=== PATIENT | female | born 1945 | race Caucasian/White ===

== ENCOUNTER 2020-05-04 09:07 | Outpatient (CLI) | payer MEDICARE, OTHER, SELFPAY ==
[2020-05-04 10:10] LABS: Anion Gap 10.7 mmol/L (7-16); Blood Urea Nitrogen 13 mg/dL (7-17); Calcium 9.3 mg/dL (8.4-10.2); Carbon Dioxide 29 mmol/L (22-30); Chloride 104 mmol/L (98-107); Estimated Glomerular Filt Rate > 60; Glucose 104 mg/dL (65-105); Potassium 3.7 mmol/L (3.4-5.0); Sodium 140 mmol/L (137-145)
== END 2020-05-04 09:08 | disposition home or self-care (01) ==
LOC: ANHSURGERY 09:11
PROVIDERS: Anesthesiology; PCP Internal Medicine; Visit Provider Urology
DX: Z01.818 Encounter for other preprocedural examination (principal); N36.42 Intrinsic sphincter deficiency (ISD); E11.9 Type 2 diabetes mellitus without complications
CPT/HCPCS: 36415; 80048; 87086; 87088

== ENCOUNTER 2020-06-14 14:02 | Outpatient (CLI) | payer MEDICARE, OTHER, SELFPAY ==
--- NOTE | 2020-06-14 14:04 | ECG_ITS ---
Measurements Intervals [place] Rate: 79 P: 39 LA: 153 QRS: 25 QRSD: 77 T: 31 QT: 357 QTc: 411 Interpretive Statements SINUS RHYTHM BASELINE ARTIFACT- I, II, III, AVR, AVL, AVF NORMAL ECG Electronically Signed On 06-14-2020 14:19:38 CDT by Marciano Modi D.O.
== END 2020-06-14 14:03 | disposition home or self-care (01) ==
LOC: ANHSURGERY 14:04
PROVIDERS: PCP Internal Medicine; Visit Provider Urology
DX: E78.00 Pure hypercholesterolemia, unspecified (principal); R32 Unspecified urinary incontinence
CPT/HCPCS: 87086; 93005

== ENCOUNTER 2020-06-22 02:02 | Outpatient (CLI) | payer MEDICARE, OTHER, SELFPAY ==
[2020-06-22 18:39] LABS: SARS-CoV-2 RNA PCR Negative
== END 2020-06-22 02:03 | disposition home or self-care (01) ==
LOC: ANHCOVIDDT 02:03
PROVIDERS: PCP Internal Medicine; Visit Provider Urology
DX: Z01.812 Encounter for preprocedural laboratory examination (principal); Z11.59 Encounter for screening for other viral diseases
CPT/HCPCS: 87635; C9803; U0003

== ENCOUNTER 2020-06-24 01:19 | Day surgery (SDC) | payer MEDICARE, OTHER, SELFPAY ==
[2020-05-03 13:48] VITALS: BMI 38.0
[2020-06-13 14:34] VITALS: BMI 37.8
--- NOTE | 2020-06-19 11:08 | PM.IMHP ---
H&P: HPI History of Present Illness Date/Time: 06/19/20 11:08 Chief complaint: ISD Narrative: Jaylyn Chaparro is a 75 year old female with mixed incontinence. Her overactive bladder is being treated with medications. She is here today for a bulking agent for her intrinsic sphincter deficiency Review of Systems Review of Systems: All systems reviewed & are unremarkable except as noted in HPI and below PMFSH Social History Social History Smoking status: Never smoker Alcohol intake: never Substance use: never Spiritual care concerns: No Meds Home Medications and Allergies Home Medications Medication Instructions Recorded Confirmed Type albuterol sulfate 1 inh INHALATION QID PRN 05/03/20 06/13/20 History alprazolam [Xanax] 0.25 mg PO BID PRN 05/03/20 06/13/20 History atorvastatin 30 mg PO HS 05/03/20 06/13/20 History clopidogrel [Plavix] 75 mg PO DAILY 05/03/20 06/13/20 History furosemide [Lasix] 20 mg PO DAILY 05/03/20 06/13/20 History levothyroxine 125 mcg PO DAILY 05/03/20 06/13/20 History metformin 500 mg PO HS 05/03/20 06/13/20 History pantoprazole 40 mg PO HS 05/03/20 06/13/20 History calcium carbonate-vitamin D3 1 cap PO DAILY 06/13/20 06/13/20 History [Calcium 600 + D(3)] celecoxib 200 mg PO QAM 06/13/20 06/13/20 History lutein 20 mg PO DAILY 06/13/20 06/13/20 History magnesium 250 mg PO DAILY 06/13/20 06/13/20 History Allergies Allergy/AdvReac Type Severity Reaction Status Date / Time naproxen Allergy Severe HIVES AND Verified 06/13/20 13:19 LIP SWELLING erythromycin base Allergy Unknown Nausea and Verified 06/13/20 13:19 Vomiting Sulfa (Sulfonamide Allergy Unknown Diarrhea Verified 06/13/20 13:19 Antibiotics) Contrast Media Allergy Severe HIVES Uncoded 06/13/20 13:19 Exam Const: General: no acute distress HENMT: Mouth: Yes moist mucous membranes Eyes: General: appearance normal, both eyes and all related structures Neck: Neck: supple Resp: Effort & Inspection: normal respiratory effort GI: GI Palp: Yes Soft to palpation Neuro: Cognition (Neuro): normal cognition Psych: Mental Status: mental status grossly normal Assessment and Plan Assessment and plan (1) Intrinsic sphincter deficiency: Code(s): N36.42 - Intrinsic sphincter deficiency (ISD) Status: Acute Assessment and Plan: cystoscopy with bulking agent
--- NOTE | 2020-06-24 07:18 | WPDHPUPDATE1 ---
History and Physical Update Update Date/Time: 06/24/20 07:18 History and Physical has been reviewed, including an updated exam of the patient. There are NO changes in the patient's condition. Risks, benefits, and alternatives have been discussed and questions answered. Patient agrees to proceed with procedure.
[2020-06-24 09:30] VITALS: BP 177/70; PULSE 88; RESP 18; TEMP 35.9; O2SAT 100
[2020-06-24] MEDS: LACTATED RINGERS 1,000 ML 30 ML IV CONT (09:55)
[2020-06-24 10:02] LABS: Glucose Point of Care 99 (65-105)
--- NOTE | 2020-06-24 10:19 | P.PNAN_ITS ---
Anes - Initial Pre Proc Eval Procedure: Operation Date: 06/24/20 11:30 Proposed Procedures p Cystoscopy, Bulking Agent - Marvin Rehman MD Date/Time: 06/24/20 10:19 Surgeon: Marvin Rehman MD Pre Op Diagnosis: ISD Patient Data Age: 75 Gender: F Height: 5 ft Weight: 87.7 kg Last Vital Signs Temp 35.9 C L 06/24/20 09:30 Pulse 88 06/24/20 09:30 Resp 18 06/24/20 09:30 BP 177/70 H 06/24/20 09:30 Pulse Ox 100 06/24/20 09:30 Allergies Allergy/AdvReac Type Severity Reaction Status Date / Time naproxen Allergy Severe HIVES AND Verified 06/24/20 10:09 LIP SWELLING erythromycin base Allergy Unknown Nausea and Verified 06/24/20 10:09 Vomiting Sulfa (Sulfonamide Allergy Unknown Diarrhea Verified 06/24/20 10:09 Antibiotics) Contrast Media Allergy Severe HIVES Uncoded 06/24/20 10:09 Home Medications Medication Instructions Recorded Confirmed Type albuterol sulfate 1 inh INHALATION QID PRN 05/03/20 06/24/20 History alprazolam [Xanax] 0.25 mg PO BID PRN 05/03/20 06/24/20 History atorvastatin 30 mg PO HS 05/03/20 06/24/20 History clopidogrel [Plavix] 75 mg PO DAILY 05/03/20 06/24/20 History furosemide [Lasix] 20 mg PO DAILY 05/03/20 06/24/20 History levothyroxine 125 mcg PO DAILY 05/03/20 06/24/20 History metformin 500 mg PO HS 05/03/20 06/24/20 History pantoprazole 40 mg PO HS 05/03/20 06/24/20 History calcium carbonate-vitamin D3 1 cap PO DAILY 06/13/20 06/24/20 History [Calcium 600 + D(3)] celecoxib 200 mg PO QAM 06/13/20 06/24/20 History lutein 20 mg PO DAILY 06/13/20 06/24/20 History magnesium 250 mg PO DAILY 06/13/20 06/24/20 History Laboratory Tests 06/24/20 09:58 POC Capillary Glucose 99 mg/dl mg/dl (65-105) Patient hx anesthesia problems: none Family hx anesthesia problems: none [facility] Past Medical History Medical History (Updated 06/24/20 @ 10:19 by Yoav Lopez MD) CAD (coronary artery disease) Obesity Polymyalgia rheumatica Surgical History Surgical History (Updated 06/24/20 @ 10:19 by Yoav Lopez MD) Hx of CABG Social History Social History Smoking status: Never smoker Alcohol intake: never Substance use: never Living arrangements: with family Spiritual care concerns: No Anes - Eval Final PreProcedure Day of Procedure 06/24/20 10:19 Patient weight: obese Heart: regular rate and rhythm Lungs: clear to auscultation Airway: Mallampati scale class II Neurological: alert and oriented Last oral intake: >/= 8 hours ASA classification: III Anesthetic plan: proceed Anesthesia type and monitoring: general GIVS and standard monitoring Informed Consent: The patient's anesthetic plan and its attendant risks and benefits were discussed with the patient/family/POA. Questions were solicited and answers provided to the satisfaction of the patient/family/POA.
[2020-06-24] MEDS: ceFAZolin 2 GM/D5W 50 ML 2 GM/50 ML BAG IVPB (11:06)
[2020-06-24] MEDS: LIDOCAINE HCL 2% GEL UROJET 10 ML PKG MUCOUS MEM (11:22)
[2020-06-24 11:36] VITALS: BP 105/42; PULSE 90; RESP 12; O2SAT 99
--- NOTE | 2020-06-24 11:40 | P.OP_ITS ---
Procedure Note - Detailed Date of procedure: 06/24/20 Pre-op diagnosis: ISD Intrinsic sphincter deficiency Post-op diagnosis: same Procedure performed: Cystoscopy with implantation of suburethral implant material [id number] Description of procedure: She was correctly identified and informed consent was obtained. She was brought to the operating room. She was given mac anesthesia. She was placed in the dorsal lithotomy position. She was prepped and draped in a sterile fashion. A time-out performed. Cystoscopy revealed no tumors in the bladder and an open urethra consistent with intrinsic sphincter deficiency. I injected the bulking agent into the urethra at the 10:00 a.m. to o'clock and 6 o'clock position. There is excellent bulking effect. Her bladder was drained with a 12 [place] red rubber catheter. She was awakened and transferred to the PACU in stable condition. Implants: Macroplastique Anesthesia: MAC Surgeon: Marvin Rehman MD Drains: No Packing: No Pathology: none sent Complications: No immediate complications Condition: stable Disposition: PACU
[2020-06-24 12:00] VITALS: BP 130/54; PULSE 83; RESP 14
[2020-06-24 12:20] VITALS: BP 126/50; PULSE 82; RESP 14
== END 2020-06-24 12:40 | disposition home or self-care (01) ==
PROVIDERS: PCP Internal Medicine; Visit Provider Urology
PROC: 3E0K8GC Introduction of Other Therapeutic Substance into Genitourinary Tract, Via Natural or Artificial Opening Endoscopic (ICD-10-PCS; CPT 51715; principal; 2020-06-24 11:30)
DX: N36.42 Intrinsic sphincter deficiency (ISD) (principal); I25.10 Atherosclerotic heart disease of native coronary artery without angina pectoris; M35.3 Polymyalgia rheumatica; Z79.84 Long term (current) use of oral hypoglycemic drugs; Z79.02 Long term (current) use of antithrombotics/antiplatelets; Z95.1 Presence of aortocoronary bypass graft; E66.9 Obesity, unspecified; Z68.37 Body mass index [BMI] 37.0-37.9, adult
CPT/HCPCS: 51715; A9270; J0690; J2704; J3010; J7120; L8606

== ENCOUNTER 2020-07-22 10:56 | Outpatient (CLI) | payer MEDICARE, OTHER, SELFPAY ==
[2020-07-22 11:32] LABS: Basophils Percent Auto 0.5 % (0.2-1.2); Eosinophils Absolute Auto 0.4 K/mm3 (0-0.3); Eosinophils Percent Auto 5.2 % (0-4.4); Hematocrit 46.1 % (37.0-47.0); Hemoglobin 14.9 g/dL (12.0-15.0); Immature Granulocyte Absolute 0.02 K/mm3 (0.00-0.031); Immature Granulocyte Percent A 0.3 % (0-0.5); Lymphocytes Absolute Auto 2.28 K/mm3 (0.9-3.2); Lymphocytes Percent Auto 31.2 % (18.3-44.2); Mean Corpuscular HGB Conc 32.3 g/dl (32-36); Mean Corpuscular Hemoglobin 28.1 pg (26-34); Mean Platelet Volume 10.6 fl (7.4-10.4); Monocytes Absolute Auto 0.6 K/mm3 (0.1-0.6); Monocytes Percent Auto 8.5 % (2.6-8.5); Neutrophils Percent Auto 54.3 % (45.5-73.1); Platelet Count Result 254 k/mm3 (150-375); Red Cell Distribution Width 15.2 % (11.5-14.5); White Blood Count 7.3 K/mm3 (4.5-10.0)
[2020-07-22 13:59] LABS: Alanine Aminotransferase 17 U/L (4-35); Alkaline Phosphatase 127 U/L (38-126); Anion Gap 11 mmol/L (8-16); Aspartate Amino Transferase 25 U/L (14-36); Bilirubin,Total 0.7 mg/dL (0.2-1.3); Blood Urea Nitrogen 19 mg/dL (7-17); Calcium 9.7 mg/dL (8.4-10.2); Carbon Dioxide 26 mmol/L (22-30); Chloride 105 mmol/L (98-107); Estimated Glomerular Filt Rate > 60; Glucose 109 mg/dL (65-105); Lactate Dehydrogenase 343 U/L (313-618); Potassium 4.2 mmol/L (3.4-5.0); Sodium 142 mmol/L (137-145)
[2020-07-22 14:06] LABS: Immunoglobulin A 94 mg/dL (70-400); Immunoglobulin G 777 mg/dL (700-1600); Immunoglobulin M 72 mg/dL (40-230)
[2020-07-25 23:33] LABS: Kappa\\Lambda Light Chains 1.12 (0.26-1.65); Lambda Light Chain 14.6 mg/L (5.7-26.3)
[2020-07-26 22:08] LABS: Albumin 3.6 g/dL (3.8-4.8); Alpha 1 Globulin 0.3 g/dL (0.2-0.3); Beta 1 Globulin 0.4 g/dL (0.4-0.6); Gamma Globulin 0.8 g/dL (0.8-1.7); Protein, Total 6.4 g/dL (6.1-8.1)
== END 2020-07-22 10:57 | disposition home or self-care (01) ==
LOC: ANHLAB 10:58
PROVIDERS: PCP Internal Medicine; Visit Provider Internal Medicine Hematology & Oncology
DX: D72.9 Disorder of white blood cells, unspecified (principal)
CPT/HCPCS: 36415; 80053; 82784; 83615; 83883; 84155; 84165; 85025; 86334; 88184; 88185

== ENCOUNTER 2020-12-13 08:46 | Outpatient (CLI) | payer MEDICARE, SELFPAY | END 2020-12-13 08:47 | disposition home or self-care (01) | LOC: ANHCOVIDVC 08:46 | PROVIDERS: PCP Internal Medicine | DX: Z23 Encounter for immunization (principal) | CPT/HCPCS: 0001A; 91300 ==

== ENCOUNTER 2021-01-03 08:48 | Outpatient (CLI) | payer MEDICARE, SELFPAY | END 2021-01-03 08:49 | LOC: ANHCOVIDVC 08:48 | PROVIDERS: PCP Internal Medicine | DX: Z23 Encounter for immunization (principal) | CPT/HCPCS: 0002A; 91300 ==

== ENCOUNTER 2021-03-28 08:53 | Outpatient (CLI) | payer MEDICARE, SELFPAY ==
[2021-03-28 09:22] LABS: Basophils Absolute Auto 0.1 K/mm3 (0.0-0.1); Basophils Percent Auto 0.7 % (0.2-1.2); Eosinophils Absolute Auto 0.2 K/mm3 (0-0.3); Eosinophils Percent Auto 3.4 % (0-4.4); Hematocrit 45.2 % (37.0-47.0); Hemoglobin 14.9 g/dL (12.0-15.0); Immature Granulocyte Absolute 0.03 K/mm3 (0.00-0.031); Immature Granulocyte Percent A 0.4 % (0-0.5); Lymphocytes Absolute Auto 2.39 K/mm3 (0.9-3.2); Lymphocytes Percent Auto 35.2 % (18.3-44.2); Mean Corpuscular Hemoglobin 28.9 pg (26-34); Mean Corpuscular Volume 87.8 fl (80-100); Mean Platelet Volume 10.1 fl (7.4-10.4); Monocytes Absolute Auto 0.6 K/mm3 (0.1-0.6); Monocytes Percent Auto 9.3 % (2.6-8.5); Neutrophils Absolute Auto 3.5 K/mm3 (1.3-6.7); Platelet Count Result 241 k/mm3 (150-375); Red Blood Count 5.15 M/mm3 (4.2-5.4); Red Cell Distribution Width 14.8 % (11.5-14.5); White Blood Count 6.8 K/mm3 (4.5-10.0)
[2021-03-28 15:58] LABS: Alanine Aminotransferase 16 U/L (4-35); Albumin Level 4.2 g/dL (3.5-5.1); Alkaline Phosphatase 105 U/L (38-126); Anion Gap 9 mmol/L (8-16); Aspartate Amino Transferase 22 U/L (14-36); Bilirubin,Total 0.3 mg/dL (0.2-1.3); Blood Urea Nitrogen 17 mg/dL (7-17); Calcium 9.7 mg/dL (8.4-10.2); Carbon Dioxide 25 mmol/L (22-30); Chloride 107 mmol/L (98-107); Estimated Glomerular Filt Rate > 60; Glucose 101 mg/dL (65-105); Potassium 4.4 mmol/L (3.4-5.0); Sodium 141 mmol/L (137-145)
[2021-03-28 16:03] LABS: Immunoglobulin A 103 mg/dL (70-400); Immunoglobulin G 873 mg/dL (700-1600); Immunoglobulin M 71 mg/dL (40-230)
[2021-04-01 12:36] LABS: Kappa\\Lambda Light Chains 0.91 (0.26-1.65); Lambda Light Chain 16.3 mg/L (5.7-26.3)
[2021-04-03 00:11] LABS: Albumin 3.6 g/dL (3.8-4.8); Alpha 1 Globulin 0.3 g/dL (0.2-0.3); Alpha 2 Globulin 1.1 g/dL (0.5-0.9); Beta 1 Globulin 0.4 g/dL (0.4-0.6); Gamma Globulin 0.8 g/dL (0.8-1.7); Protein, Total 6.6 g/dL (6.1-8.1)
== END 2021-03-28 08:54 | disposition home or self-care (01) ==
LOC: ANHLAB 09:05
PROVIDERS: PCP Internal Medicine; Visit Provider Internal Medicine Hematology & Oncology
DX: D72.9 Disorder of white blood cells, unspecified (principal)
CPT/HCPCS: 36415; 80053; 82784; 83883; 84155; 84165; 85025

== ENCOUNTER 2022-03-18 07:26 | Outpatient (CLI) | payer MEDICARE, SELFPAY ==
--- NOTE | ~2022-03-18 | MR_ITS ---
EXAMINATION: MR shoulder RT wo con DATE: 03/18/2022 08:39 INDICATION: Right shoulder pain TECHNIQUE: Magnetic resonance imaging (MRI) of the right shoulder was performed without intravenous c ontrast. Sequences included axial PD-weighted FS FSE, coronal oblique PD-weighted FS FSE, coronal obl ique T2-weighted FS FSE, sagittal PD-weighted FS FSE, and sagittal T1-weighted SE. COMPARISON: None. FINDINGS: Coracoacromial arch: The acromion undersurface is curved in morphology (type II). Small subacromial spurs on the acromial insertion of the normal coracoacromial ligament. Mild acromioclavicular osteoarthritis. Rotator cuff: Mild supraspinatus and subscapularis tendinopathy without discrete tear. The infraspinatus, teres min or tendons are normal. Normal rotator cuff muscle bulk and signal. Biceps tendon, glenoid labrum and glenohumeral cartilage: Long head of the biceps tendon is normal. Severe glenohumeral osteoarthritis with extensive full and near full-thickness cartilage loss with subarticular cystic changes extending across the posterior in ferior half of the glenoid and at the superomedial third of the humeral head. Moderate size marginal osteophytes along the inferomedial humeral head. Diffuse labral tearing. Fluid: Physiologic amount of fluid in the glenohumeral joint and biceps tendon sheath. Mild synovitis at the axillary recess. No loose osteochondral bodies. No abnormal fluid signal in the subacromial/subdelto id bursa to suggest bursitis. Bones: Bone alignment is normal. No fracture or pathologic marrow replacing process. IMPRESSION: 1. Severe right glenohumeral osteoarthritis with diffuse tearing of the glenoid labrum. 2. Mild supraspinatus and subscapularis tendinopathy without discrete tear. 3. Mild acromioclavicular osteoarthritis. Reviewed, dictated and finalized at location B.
== END 2022-03-18 07:27 | disposition home or self-care (01) ==
PROVIDERS: PCP Internal Medicine; Visit Provider Orthopaedic Surgery
DX: M19.011 Primary osteoarthritis, right shoulder (principal)
CPT/HCPCS: 73221

== ENCOUNTER 2022-03-29 14:26 | Outpatient (CLI) | payer MEDICARE, SELFPAY ==
[2022-03-29 14:56] LABS: Basophils Absolute Auto 0.1 K/mm3 (0.0-0.1); Basophils Percent Auto 0.6 % (0.2-1.2); Eosinophils Absolute Auto 0.2 K/mm3 (0-0.3); Eosinophils Percent Auto 2.6 % (0-4.4); Hematocrit 48.8 % (37.0-47.0); Hemoglobin 15.5 g/dL (12.0-15.0); Immature Granulocyte Absolute 0.03 K/mm3 (0.00-0.031); Immature Granulocyte Percent A 0.4 % (0-0.5); Mean Corpuscular HGB Conc 31.8 g/dl (32-36); Mean Corpuscular Hemoglobin 28.2 pg (26-34); Mean Corpuscular Volume 88.7 fl (80-100); Mean Platelet Volume 9.9 fl (7.4-10.4); Monocytes Absolute Auto 0.6 K/mm3 (0.1-0.6); Monocytes Percent Auto 7.9 % (2.6-8.5); Neutrophils Absolute Auto 4.5 K/mm3 (1.3-6.7); Neutrophils Percent Auto 57.5 % (45.5-73.1); Platelet Count Result 240 k/mm3 (150-375); Red Cell Distribution Width 14.6 % (11.5-14.5); White Blood Count 7.7 K/mm3 (4.5-10.0)
[2022-03-29 17:24] LABS: Immunoglobulin A 101 mg/dL (70-400); Immunoglobulin M 80 mg/dL (40-230)
[2022-03-29 17:53] LABS: Alanine Aminotransferase 26 U/L (6-35); Albumin Level 4.2 g/dL (3.5-5.1); Alkaline Phosphatase 96 U/L (38-126); Anion Gap 7 mmol/L (8-16); Aspartate Amino Transferase 28 U/L (14-36); Bilirubin,Total 0.5 mg/dL (0.2-1.3); Blood Urea Nitrogen 16 mg/dL (7-17); Calcium 9.1 mg/dL (8.4-10.2); Carbon Dioxide 25 mmol/L (22-30); Chloride 108 mmol/L (98-107); Estimated Glomerular Filt Rate > 60; Glucose 102 mg/dL (65-110); Potassium 4.3 mmol/L (3.4-5.0); Sodium 140 mmol/L (137-145)
[2022-03-29 21:23] LABS: Immunoglobulin G 758 mg/dL (700-1600)
[2022-04-01 14:16] LABS: Kappa\\Lambda Light Chains 0.99 (0.26-1.65)
[2022-04-02 15:28] LABS: Albumin 3.9 g/dL (3.8-4.8); Alpha 1 Globulin 0.3 g/dL (0.2-0.3); Alpha 2 Globulin 1.1 g/dL (0.5-0.9); Beta 1 Globulin 0.5 g/dL (0.4-0.6); Gamma Globulin 0.8 g/dL (0.8-1.7); Protein, Total 6.9 g/dL (6.1-8.1)
== END 2022-03-29 14:27 | disposition home or self-care (01) ==
LOC: ANHLAB 14:27
PROVIDERS: PCP Internal Medicine; Visit Provider Internal Medicine Hematology & Oncology
DX: D72.9 Disorder of white blood cells, unspecified (principal)
CPT/HCPCS: 36415; 80053; 82784; 83883; 84155; 84165; 85025

== ENCOUNTER 2023-04-01 09:06 | Outpatient (CLI) | payer MEDICARE, SELFPAY ==
[2023-04-01 09:17] LABS: Basophils Percent Auto 0.5 % (0.2-1.2); Eosinophils Absolute Auto 0.2 K/mm3 (0-0.3); Eosinophils Percent Auto 2.9 % (0-4.4); Hematocrit 47.2 % (37.0-47.0); Hemoglobin 15.3 g/dL (12.0-15.0); Immature Granulocyte Absolute 0.02 K/mm3 (0.00-0.031); Immature Granulocyte Percent A 0.3 % (0-0.5); Lymphocytes Absolute Auto 2.91 K/mm3 (0.9-3.2); Lymphocytes Percent Auto 38.2 % (18.3-44.2); Mean Corpuscular HGB Conc 32.4 g/dl (32-36); Mean Corpuscular Hemoglobin 28.7 pg (26-34); Mean Corpuscular Volume 88.6 fl (80-100); Mean Platelet Volume 10.3 fl (7.4-10.4); Monocytes Absolute Auto 0.7 K/mm3 (0.1-0.6); Monocytes Percent Auto 9.1 % (2.6-8.5); Neutrophils Absolute Auto 3.7 K/mm3 (1.3-6.7); Platelet Count Result 240 k/mm3 (150-375); Red Blood Count 5.33 M/mm3 (4.2-5.4); Red Cell Distribution Width 15.3 % (11.5-14.5); White Blood Count 7.6 K/mm3 (4.5-10.0)
[2023-04-01 10:57] LABS: Alanine Aminotransferase 32 U/L (6-35); Albumin Level 4.3 g/dL (3.5-5.1); Alkaline Phosphatase 104 U/L (38-126); Anion Gap 5 mmol/L (8-16); Aspartate Amino Transferase 29 U/L (14-36); Bilirubin,Total 0.6 mg/dL (0.2-1.3); Blood Urea Nitrogen 17 mg/dL (7-17); Calcium 9.2 mg/dL (8.4-10.2); Carbon Dioxide 30 mmol/L (22-30); Chloride 106 mmol/L (98-107); Estimated Glomerular Filt Rate 60; Glucose 109 mg/dL (65-110); Potassium 4.4 mmol/L (3.4-5.0); Sodium 141 mmol/L (137-145)
[2023-04-01 11:05] LABS: Immunoglobulin A 117 mg/dL (70-400); Immunoglobulin G 834 mg/dL (700-1600); Immunoglobulin M 79 mg/dL (40-230)
[2023-04-04 09:21] LABS: Kappa\\Lambda Light Chains 0.79 (0.26-1.65); Lambda Light Chain 23.8 mg/L (5.7-26.3)
== END 2023-04-01 09:07 | disposition home or self-care (01) ==
LOC: ANHLAB 09:07
PROVIDERS: PCP Internal Medicine; Visit Provider Internal Medicine Hematology & Oncology
DX: D72.9 Disorder of white blood cells, unspecified (principal)
CPT/HCPCS: 36415; 80053; 82784; 83883; 85025

== ENCOUNTER 2023-04-08 15:00 | Outpatient (CLI) | payer MEDICARE, SELFPAY ==
[2023-04-08 15:14] LABS: Basophils Absolute Auto 0.1 K/mm3 (0.0-0.1); Basophils Percent Auto 0.6 % (0.2-1.2); Eosinophils Absolute Auto 0.2 K/mm3 (0-0.3); Eosinophils Percent Auto 2.7 % (0-4.4); Hemoglobin 15.5 g/dL (12.0-15.0); Immature Granulocyte Absolute 0.02 K/mm3 (0.00-0.031); Immature Granulocyte Percent A 0.3 % (0-0.5); Lymphocytes Absolute Auto 2.87 K/mm3 (0.9-3.2); Lymphocytes Percent Auto 36.8 % (18.3-44.2); Mean Corpuscular HGB Conc 32.3 g/dl (32-36); Mean Corpuscular Hemoglobin 28.6 pg (26-34); Mean Corpuscular Volume 88.6 fl (80-100); Monocytes Absolute Auto 0.7 K/mm3 (0.1-0.6); Monocytes Percent Auto 9.5 % (2.6-8.5); Neutrophils Absolute Auto 3.9 K/mm3 (1.3-6.7); Neutrophils Percent Auto 50.1 % (45.5-73.1); Platelet Count Result 241 k/mm3 (150-375); Red Blood Count 5.42 M/mm3 (4.2-5.4); Red Cell Distribution Width 15.4 % (11.5-14.5); White Blood Count 7.8 K/mm3 (4.5-10.0)
[2023-04-11 13:00] LABS: Albumin 3.8 g/dL (3.8-4.8); Alpha 1 Globulin 0.4 g/dL (0.2-0.3); Alpha 2 Globulin 1.2 g/dL (0.5-0.9); Beta 1 Globulin 0.4 g/dL (0.4-0.6); Gamma Globulin 0.8 g/dL (0.8-1.7); Protein, Total 6.9 g/dL (6.1-8.1)
== END 2023-04-08 15:01 | disposition home or self-care (01) ==
LOC: ANHLAB 15:02
PROVIDERS: PCP Internal Medicine; Visit Provider Internal Medicine Hematology & Oncology
DX: D72.9 Disorder of white blood cells, unspecified (principal)
CPT/HCPCS: 36415; 84155; 84165; 85025

== ENCOUNTER 2024-02-07 17:34 | Emergency (ER) | payer MEDICARE, SELFPAY ==
--- NOTE | ~2024-02-07 | CT_ITS ---
EXAMINATION: CT brain wo con DATE: 02/07/2024 18:52 INDICATION: Headache and dizziness post head injury 9 days prior TECHNIQUE: Computed tomography (CT) of the head was performed without intravenous contrast. Sagittal and coronal reconstructions were performed. The mA was adjusted according to patient size. Iterative reconstruction technique was employed. The dose-length product was 605.33 mGy-cm. COMPARISON: None FINDINGS: No fracture. No acute intracranial hemorrhage, acute infarction or abnormal extra axial fluid collect ion. There is mild scattered white matter hypoattenuation consistent with chronic small vessel ischem ic disease. Symmetric prominence of the sulci consistent with mild age-appropriate diffuse cerebral v olume loss. Ventricles are normal and symmetric. No mass/mass effect. The orbits, paranasal sinuses a nd mastoid air cells are normal. IMPRESSION: 1. No fracture or acute intracranial process. 2. Age-related changes including mild diffuse volume loss and mild scattered white matter hypoattenua tion consistent with chronic small vessel ischemic disease. Reviewed, dictated and finalized at location A. IMPRESSION: 1. No fracture or acute intracranial process. 2. Age-related changes including mild diffuse volume loss and mild scattered wh ite matter hypoattenuation consistent with chronic small vessel ischemic diseas e.
--- NOTE | ~2024-02-07 | CT_ITS ---
EXAMINATION: CT cervical spine wo con, CT thoracic spine wo con DATE: 02/07/2024 18:53 INDICATION: Neck pain post fall TECHNIQUE: 1. Computed tomography (CT) of the cervical spine was performed without intravenous contrast. Automat ed exposure control and iterative reconstruction technique were employed. The dose-length product was 393.60 mGy-cm. 2. CT of the thoracic spine was performed without intravenous contrast. Automated exposure control an d iterative reconstruction technique were employed. The dose length product was 1188.93 mGy-cm. COMPARISON: None FINDINGS: Cervical spine: There is straightening of the normal cervical lordosis which is likely positional. No spondylolisthes is or facet subluxation. Vertebral body heights are normal. No acute fracture. Moderate disc height l oss at C6-7. Mild disc height loss at C2-C3 and C3-C4 and mild to moderate disc height loss at C4-C5 and C5-C6. Mild central canal stenosis resulting from small disc bulges disc osteophyte complex at C4 -C5 through C6-C7. There is severe bilateral uncovertebral osteoarthritis at C6-C7. There is mild unc overtebral osteoarthritis at many of the more cephalad cervical levels. There is also severe facet os teoarthritis on the left at C7-T1 with mild osteoarthritis the remaining cervical facet joints. There is mild neural foraminal stenosis on the bilaterally at C6-C7 and on the right at C7-T1. Atheroscler otic calcification is at the bilateral carotid bulbs. Visualized cervical soft tissues are otherwise unremarkable. Thoracic spine: Alignment is normal. Vertebral body heights are normal. No acute fracture. There is multilevel mild d isc height loss throughout the thoracic spine relatively sparing T1-T2, T2-T3 and T12-L1. Moderate di sc height loss with vacuum phenomena at T1-T2. There is multilevel moderate to severe facet osteoarth ritis bilaterally in the mid to upper thoracic spine with mild lower thoracic facet osteoarthritis. T his contributes to mild neural foraminal stenosis at multiple neural foramina on both the left and ri ght predominantly along the midthoracic spine. There are some respiratory motion and mild dependent a telectasis in the visualized lungs. Paravertebral soft tissues are otherwise unremarkable. Small slid ing-type hiatal hernia. IMPRESSION: 1. Moderate cervical and mild thoracic spondylosis. No acute osseous abnormality. 2. Small sliding-type hiatal hernia. Reviewed, dictated and finalized at location A. IMPRESSION: 1. Moderate cervical and mild thoracic spondylosis. No acute osseous abnormalit y. 2. Small sliding-type hiatal hernia.
--- NOTE | 2024-02-07 18:14 | ED_ITS ---
HPI - Dizziness General Chief Complaint: Dizziness Stated Complaint: Dizziness, fall, head and neck pain Time Seen by Provider: 02/07/24 18:14 Focused HPI: Patient is an 78 y/o female, with PMH of COPD, who presents to the ED with c/o pain in her R mid back. States she was unable to sleep last night GENERAL: Well-appearing, well-nourished, and in no acute distress. HEAD: Normocephalic, atraumatic. CHEST: Clear to auscultation. ?No respiratory distress. HEART: Regular rate and rhythm.? NEURO: ?Alert and oriented x3. Patient screened in triage and initial orders placed.? ?Additional care and disposition to be based upon?diagnostic testing and treatment. Related Data Home Medications Medication Instructions Recorded Confirmed alprazolam 0.25 mg tablet (Xanax) 0.25 mg PO BID PRN Anxiety 05/03/20 03/08/22 atorvastatin 20 mg tablet 30 mg PO HS 05/03/20 03/08/22 clopidogrel 75 mg tablet (Plavix) 75 mg PO DAILY 05/03/20 03/08/22 furosemide 20 mg tablet (Lasix) 20 mg PO DAILY 05/03/20 03/08/22 pantoprazole 40 mg tablet,delayed 40 mg PO HS 05/03/20 03/08/22 release Al hyd-Mg tr-alg ac-sod bicarb 80 tablet PO 03/07/22 03/08/22 mg-14.2 mg chewable tablet (Gaviscon) famotidine 20 mg tablet (Pepcid) 20 mg PO DAILY 03/07/22 03/08/22 ibuprofen 200 mg tablet 200 mg PO Q6H PRN 03/07/22 03/08/22 Allergies Allergy/AdvReac Type Severity Reaction Status Date / Time naproxen Allergy Severe HIVES AND Verified 03/07/22 15:11 LIP SWELLING diclofenac Allergy Mild unknown Verified 03/07/22 15:11 erythromycin base Allergy Unknown Nausea and Verified 03/07/22 15:11 Vomiting Sulfa (Sulfonamide Allergy Unknown Diarrhea Verified 03/07/22 15:11 Antibiotics) Contrast Media Allergy Severe HIVES Uncoded 03/07/22 15:11 [facility] Past Medical History Medical History (Updated 03/08/22 @ 16:17 by Shoaib Haro MD) CAD (coronary artery disease) Cataract Depression Diabetes Bryan's thyroiditis Hiatal hernia with GERD History of breast cancer History of painful gingiva History of stress test Hyperlipidemia Obesity Palpitations Polymyalgia rheumatica Surgical History Surgical History (Updated 02/20/22 @ 15:30 by Natacha Gorman MA) H/O basal cell carcinoma excision (~11/10/19) H/O lumpectomy (~11/02/05) H/O mastectomy (~1988) H/O parathyroidectomy (~01/28/19) H/O tubal ligation History of breast biopsy History of cataract surgery History of heart artery stent X 5 History of heart bypass surgery (~2005) Hx of CABG Family History Family History (Updated 01/25/22 @ 11:46 by Izzy Romero MA) Mother Hypertension Sibling Heart disease Sibling Parkinson disease Sibling , brother Malignant tumor of tonsil Father Emphysema lung Social History Social History Smoking status: Never smoker Alcohol intake: never Substance use: never Living arrangements: with family Spiritual care concerns: No Discharge Plan Discharge Prescriptions: No Action famotidine [Pepcid] 20 mg tablet 20 mg PO DAILY ibuprofen 200 mg tablet 200 mg PO Q6H PRN Gaviscon 80-14.2 mg tablet,chewable PO atorvastatin 20 mg Tablet 30 mg PO HS clopidogrel [Plavix] 75 mg Tablet 75 mg PO DAILY Hold Instructions: Resume on 06/25/20. alprazolam [Xanax] 0.25 mg Tablet 0.25 mg PO BID PRN (Reason: Anxiety) pantoprazole 40 mg Tablet,Delayed Release (Dr/Ec) 40 mg PO HS furosemide [Lasix] 20 mg Tablet 20 mg PO DAILY Follow-up/Referrals: Tawanda,MD Ermias [Primary Care Provider] -
[2024-02-07 18:19] VITALS: BP 191/79; PULSE 77; RESP 20; TEMP 36; O2SAT 98
--- NOTE | 2024-02-07 18:24 | ED.DIZZY ---
HPI - Dizziness General Chief Complaint: Dizziness <VERNON Dillard Last Filed: 02/10/24 09:13> Stated Complaint: Dizziness, fall, head and neck pain <VERNON Dillard Last Filed: 02/10/24 09:13> Time Seen by Provider: 02/07/24 18:24 <VERNON Dillard Last Filed: 02/10/24 09:13> Focused HPI: Patient is an 78-year-old female who presents the ED with report of dizziness and head injury. Patient reports she fell on 01/28 reaching to pick something up off the ground. Was dizzy at that time when she bent over. History of vertigo. Hit her head on a recliner foot rest. No LOC. Was not evaluated at that time. She is on Plavix. Since then, she has had intermittent dizziness, worse with looking down or turning head left to right. She feels off balance with the dizziness. She also c/o intermittent headaches, eye pressure, posterior vicki neck pain. Denies nausea, vomiting, vision changes, chest pain, shortness breath, focal weakness or numbness. GENERAL: Elderly, morbidly obese with BMI of 42.8, and in no acute distress. HEAD: Normocephalic, atraumatic. EENT: PERRL/EOMI, conjunctiva clear. No nystagmus. TMs clear bilaterally. CHEST: Clear to auscultation. ?No respiratory distress. HEART: Regular rate and rhythm.? NEURO: ?Alert and oriented x3. no focal deficits. 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 Patient screened in triage and initial orders placed.? ?Additional care and disposition to be based upon?diagnostic testing and treatment. <VERNON Dillard Last Filed: 02/10/24 09:13> Source: patient <VERNON Dillard Last Filed: 02/10/24 09:13> Mode of arrival: ambulatory <VERNON Dillard Last Filed: 02/10/24 09:13> Limitations: no limitations <VERNON Dillard Last Filed: 02/10/24 09:13> Related Data Home Medications: Home Medications Medication Instructions Recorded Confirmed alprazolam 0.25 mg tablet (Xanax) 0.25 mg PO BID PRN Anxiety 05/03/20 03/08/22 atorvastatin 20 mg tablet 30 mg PO HS 05/03/20 03/08/22 clopidogrel 75 mg tablet (Plavix) 75 mg PO DAILY 05/03/20 03/08/22 furosemide 20 mg tablet (Lasix) 20 mg PO DAILY 05/03/20 03/08/22 pantoprazole 40 mg tablet,delayed 40 mg PO HS 05/03/20 03/08/22 release Al hyd-Mg tr-alg ac-sod bicarb 80 tablet PO 03/07/22 03/08/22 mg-14.2 mg chewable tablet (Gaviscon) famotidine 20 mg tablet (Pepcid) 20 mg PO DAILY 03/07/22 03/08/22 ibuprofen 200 mg tablet 200 mg PO Q6H PRN 03/07/22 03/08/22 <VERNON Dillard Last Filed: 02/10/24 09:13> Allergies/Adverse Reactions: Allergies Allergy/AdvReac Type Severity Reaction Status Date / Time naproxen Allergy Severe HIVES AND Verified 02/07/24 18:19 LIP SWELLING diclofenac Allergy Mild unknown Verified 02/07/24 18:19 erythromycin base Allergy Unknown Nausea and Verified 02/07/24 18:19 Vomiting Sulfa (Sulfonamide Allergy Unknown Diarrhea Verified 02/07/24 18:19 Antibiotics) Contrast Media Allergy Severe HIVES Uncoded 03/07/22 15:11 <VERNON Dillard Last Filed: 02/10/24 09:13> FOR[facility]LY [facility] Past Medical History Medical History: Medical History (Updated 02/08/24 @ 00:01 by Tyler Dempsey) CAD (coronary artery disease) Cataract Depression Diabetes Bryan's thyroiditis Hiatal hernia with GERD History of breast cancer History of painful gingiva History of stress test Hyperlipidemia Obesity Palpitations Polymyalgia rheumatica <VERNON Dillard Last Filed: 02/10/24 09:13> Surgical History Surgical History: Surgical History (Updated 02/20/22 @ 15:30 by Natacha Gorman MA) H/O basal cell carcinoma excision (~11/10/19) H/O lumpectomy (~11/02/05) H/O mastectomy (~1988) H/O parathyroidectomy (~01/28/19) H/O tubal ligation History of breast biopsy History of cataract surgery History of heart artery stent X 5 History of heart bypass surgery (~2005) Hx of CABG <Alexandrea Awad PA-C - Last Filed: 02/10/24 09:13> Family History Family History: Family History (Updated 01/25/22 @ 11:46 by Izzy Romero MA) Mother Hypertension Sibling Heart disease Sibling Parkinson disease Sibling , brother Malignant tumor of tonsil Father Emphysema lung <VERNON Dillard Last Filed: 02/10/24 09:13> Social History Social History: Social History Smoking status: Never smoker Alcohol intake: never Substance use: never Living arrangements: with family Spiritual care concerns: No <VERNON Dillard Last Filed: 02/10/24 09:13> Course Vital Signs Vital signs: Vital Signs Temperature 96.8 F L 02/07/24 18:19 Pulse Rate 77 02/07/24 18:19 Respiratory Rate 20 02/07/24 18:19 Blood Pressure 191/79 H 02/07/24 18:19 Pulse Oximetry 98 02/07/24 18:19 Oxygen Delivery Room Air 02/07/24 18:19 Temperature 96.8 F L 02/07/24 18:19 Pulse Rate 77 02/07/24 18:19 Respiratory Rate 20 02/07/24 18:19 Blood Pressure 191/79 H 02/07/24 18:19 Pulse Oximetry 98 02/07/24 18:19 Oxygen Delivery Room Air 02/07/24 18:19 <VERNON Dillard Last Filed: 02/10/24 09:13> Vital Signs Temperature 96.8 F L 02/07/24 18:19 Pulse Rate 77 02/07/24 18:19 Respiratory Rate 20 02/07/24 18:19 Blood Pressure 191/79 H 02/07/24 18:19 Pulse Oximetry 98 02/07/24 18:19 Oxygen Delivery Room Air 02/07/24 18:19 Temperature 96.8 F L 02/07/24 18:19 Pulse Rate 77 02/07/24 18:19 Respiratory Rate 20 02/07/24 18:19 Blood Pressure 191/79 H 02/07/24 18:19 Pulse Oximetry 98 02/07/24 18:19 Oxygen Delivery Room Air 02/07/24 18:19 <Eloisa Fernandez MD - Last Filed: 02/14/24 07:27> Procedures Laceration Laceration 1: Date: 02/07/24 <Eloisa Fernandez MD - Last Filed: 02/14/24 07:27> Time: 20:00 <Eloisa Fernandez MD - Last Filed: 02/14/24 07:27> Site: scalp <Eloisa Fernandez MD - Last Filed: 02/14/24 07:27> Description: irregular and clean <Eloisa Fernandez MD - Last Filed: 02/14/24 07:27> Depth: simple, single layer <Eloisa Fernandez MD - Last Filed: 02/14/24 07:27> Local Anesthetic: lidocaine 1% <Eloisa Fernandez MD - Last Filed: 02/14/24 07:27> Pre-repair: wound explored, irrigated, irrigated extensively and deep structures intact <Eloisa Fernandez MD - Last Filed: 02/14/24 07:27> ====== Skin Level ======: Skin layer closed with: evan (2) and dermabond (hair apposition technique; strands twisted together to hold the lacs together and then glued into place. Overall the multiple lacerations well-approximated and bleeding controlled with this) <Eloisa Fernandez MD - Last Filed: 02/14/24 07:27> ====== Subcutaneous Layer ======: ====== Muscle Layer ======: ====== Tendon Layer ======: MDM - Dizziness MDM Narrative Medical decision making narrative: MSE by SHADIA in triage. Attempted to give patient meclizine, however she refused this, states it makes her sleep for 12 straight hours. <Alexandrea Awad PA-C - Last Filed: 02/10/24 09:13> MSE by SHADIA in triage. Attempted to give patient meclizine, however she refused this, states it makes her sleep for 12 straight hours. Patient with history of vertigo for years presents here after having had an episode of vertigo so severe that he fell and hit her denies any complaints right now, no longer having any vertigo here, CT imaging obtained thankfully does not show any acute abnormality. Labs within acceptable limits, IV fluids given. EKG without signs of acute ischemia or arrhythmia. 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 Instructions on when to remove evan provided. Return precautions discussed <Eloisa Fernandez MD - Last Filed: 02/14/24 07:27> Discharge Plan Discharge Clinical Impression: Vertigo, Head injury <VERNON Dillard Last Filed: 02/10/24 09:13> Patient Disposition: Home, Self-Care <VERNON Dillard Last Filed: 02/10/24 09:13> Condition: Stable <VERNON Dillard Last Filed: 02/10/24 09:13> Instructions: Antibiotic Form, Vertigo (ED), Head Injury (ED) <VERNON Dillard Last Filed: 02/10/24 09:13> Prescriptions: New ondansetron 4 mg tablet,disintegrating 4 mg PO Q8H PRN (Reason: nausea and vomiting) Qty: 10 0RF No Action famotidine [Pepcid] 20 mg tablet 20 mg PO DAILY ibuprofen 200 mg tablet 200 mg PO Q6H PRN Gaviscon 80-14.2 mg tablet,chewable PO atorvastatin 20 mg Tablet 30 mg PO HS clopidogrel [Plavix] 75 mg Tablet 75 mg PO DAILY Hold Instructions: Resume on 06/25/20. alprazolam [Xanax] 0.25 mg Tablet 0.25 mg PO BID PRN (Reason: Anxiety) pantoprazole 40 mg Tablet,Delayed Release (Dr/Ec) 40 mg PO HS furosemide [Lasix] 20 mg Tablet 20 mg PO DAILY <Alexandrea Awad PA-C - Last Filed: 02/10/24 09:13> Follow-up/Referrals: Tawanda,MD Ermias [Primary Care Provider] - 2 Days Florence Amaro MD [Physician] - 2 Days <Alexandrea Awad PA-C - Last Filed: 02/10/24 09:13>
--- NOTE | 2024-02-07 21:34 | PC.NURSE ---
Pt seen by erp in triage bay 2. This RN gave discharge paperwork to pt.
== END 2024-02-07 21:43 | disposition home or self-care (01) ==
LOC: ANHED 20:39
PROVIDERS: Emergency Provider Emergency Medicine; PCP Internal Medicine
DX: R42 Dizziness and giddiness (principal); S09.90XA Unspecified injury of head, initial encounter; I25.10 Atherosclerotic heart disease of native coronary artery without angina pectoris; E11.9 Type 2 diabetes mellitus without complications; E06.3 Autoimmune thyroiditis; K21.9 Gastro-esophageal reflux disease without esophagitis; K44.9 Diaphragmatic hernia without obstruction or gangrene; E78.5 Hyperlipidemia, unspecified; E66.9 Obesity, unspecified; Z68.41 Body mass index [BMI] 40.0-44.9, adult; M35.3 Polymyalgia rheumatica; Z95.5 Presence of coronary angioplasty implant and graft; Z95.1 Presence of aortocoronary bypass graft; Z85.3 Personal history of malignant neoplasm of breast; Z90.10 Acquired absence of unspecified breast and nipple; Z90.89 Acquired absence of other organs; Z98.49 Cataract extraction status, unspecified eye; Z79.02 Long term (current) use of antithrombotics/antiplatelets; Z79.899 Other long term (current) drug therapy; W18.39XA Other fall on same level, initial encounter
CPT/HCPCS: 70450; 72125; 72128; 99284

== ENCOUNTER 2024-03-30 14:53 | Outpatient (CLI) | payer MEDICARE, SELFPAY ==
[2024-03-30 15:19] LABS: Basophils Absolute Auto 0.1 K/mm3 (0.0-0.1); Basophils Percent Auto 0.8 % (0.2-1.2); Eosinophils Absolute Auto 0.2 K/mm3 (0-0.3); Eosinophils Percent Auto 3.1 % (0-4.4); Hematocrit 48.7 % (37.0-47.0); Hemoglobin 15.5 g/dL (12.0-15.0); Immature Granulocyte Absolute 0.02 K/mm3 (0.00-0.031); Immature Granulocyte Percent A 0.3 % (0-0.5); Lymphocytes Absolute Auto 2.75 K/mm3 (0.9-3.2); Lymphocytes Percent Auto 37.6 % (18.3-44.2); Mean Corpuscular HGB Conc 31.8 g/dl (32-36); Mean Corpuscular Hemoglobin 28.5 pg (26-34); Mean Corpuscular Volume 89.7 fl (80-100); Mean Platelet Volume 10.2 fl (7.4-10.4); Monocytes Absolute Auto 0.6 K/mm3 (0.1-0.6); Monocytes Percent Auto 8.8 % (2.6-8.5); Neutrophils Absolute Auto 3.6 K/mm3 (1.3-6.7); Neutrophils Percent Auto 49.4 % (45.5-73.1); Platelet Count Result 235 k/mm3 (150-375); Red Blood Count 5.43 M/mm3 (4.2-5.4); Red Cell Distribution Width 15.1 % (11.5-14.5); White Blood Count 7.3 K/mm3 (4.5-10.0)
[2024-03-30 16:28] LABS: Iron 85 ug/dL (37-170)
[2024-03-30 16:29] LABS: Alanine Aminotransferase 35 U/L (6-35); Albumin Level 4.4 g/dL (3.5-5.1); Alkaline Phosphatase 100 U/L (38-126); Anion Gap 9 mmol/L (4-12); Aspartate Amino Transferase 35 U/L (14-36); Bilirubin,Total 0.6 mg/dL (0.2-1.3); Blood Urea Nitrogen 12 mg/dL (7-17); Calcium 9.4 mg/dL (8.4-10.2); Carbon Dioxide 26 mmol/L (22-30); Chloride 106 mmol/L (98-107); Estimated Glomerular Filt Rate 60; Glucose 110 mg/dL (65-110); Sodium 141 mmol/L (137-145)
[2024-03-30 16:36] LABS: Immunoglobulin A 205 mg/dL (70-400); Immunoglobulin G 973 mg/dL (700-1600); Immunoglobulin M 84 mg/dL (40-230)
[2024-03-30 16:42] LABS: Percent Iron Saturation 28 % (20-50)
[2024-03-31 07:23] LABS: Protein, Total 6.9 g/dL (6.1-8.1)
[2024-03-31 12:24] LABS: Kappa\\Lambda Light Chains 1.18 (0.26-1.65); Lambda Light Chain 18.5 mg/L (5.7-26.3)
[2024-03-31 13:33] LABS: Albumin 3.7 g/dL (3.8-4.8); Alpha 1 Globulin 0.3 g/dL (0.2-0.3); Beta 1 Globulin 0.5 g/dL (0.4-0.6)
== END 2024-03-30 14:54 | disposition home or self-care (01) ==
LOC: ANHLAB 14:55
PROVIDERS: PCP Internal Medicine; Visit Provider Internal Medicine Hematology & Oncology
DX: D72.9 Disorder of white blood cells, unspecified (principal); D64.9 Anemia, unspecified
CPT/HCPCS: 36415; 80053; 82728; 82784; 83540; 83550; 83883; 84155; 84165; 85025

== ENCOUNTER 2025-03-30 14:32 | Outpatient (CLI) | payer MEDICARE, SELFPAY ==
--- OUTSIDE RECORDS SUMMARY | 2025-03-30 14:35 | XMS_ITS | Data Portability ---
Author Organization [facility] Address [address] [facility] [place] [address] Care Team Providers Care Consumer Electronic Retail Specialist Name Role Phone NIKKO WALTERS Hematology/Oncology CASEY NEFF Primary Care Provider NINO Meeks Contact Representative Assessment Encounter Date Assessment Date Assessment LastModified by Organization Details LastModified Time 03/02/2024 03/02/2024 vestibular therapy. Valium for vestibular suppression other diagnosis in the assessment and plan have been discussed ER records reviewed other meds continue follow up 4 months if she has not better after vestibular therapy ENT [email or web address] Not available 04/02/2024 17:47:52 04/13/2024 04/13/2024 continue current therapy morbid obesity healthy lifestyle care instructions she has responded nicely to the treatment for her vertigo see me back in 3 months [email or web address] Not available 04/19/2024 15:29:26 07/20/2024 07/20/2024 continue current therapy blood work has been ordered neurological consultation for headaches as well as these episodes of word searching. [email or web address] Not available 08/01/2024 22:38:11 11/30/2024 11/30/2024 continue current therapy blood work has been ordered discussed the neurological referral at times she has trouble just with memory and I told her that not a bad idea to go see him see me back in 4 months [email or web address] Not available 12/27/2024 16:23:25 Plan of Treatment Reminders Order Date Submit Date Provider Last Modified By Organization Details Last Modified Time Details Appointments ANY 15 2024 03:00P Jacob Neff MD Not available Not available Not available Lab lipid panel, serum 2024 025 [facility], [address], [place], [address], 12/05/2024 09:08:12 CMP, serum or plasma 2024 025 [facility], [address] [facility] [address], [place], [address], 12/05/2024 09:08:14 CBC w/ auto diff 2024 025 [facility], [address], [place], [address], 12/05/2024 09:08:16 TSH, ultra-sen sitive, serum 2024 025 [facility], [address] [facility] [address], [place], [address], 12/05/2024 09:08:15 T3, free, serum or plasma 2024 025 [facility], [address] [facility] [address], [place], [address], 12/05/2024 09:08:17 unlisted lab - T4, free 2024 025 [facility], [address] [facility] [address], [place], [address], 12/05/2024 09:08:13 vitamin B12 + folate, serum or blood 2023 024 [facility] Not available 07/30/2024 19:56:49 T3, free, serum or plasma 2023 024 Not available 08/10/2024 12:19:14 lipid panel, serum 2023 024 [facility] Not available 07/30/2024 19:56:49 CBC w/ auto diff 2023 024 [facility] Not available 07/30/2024 19:56:49 CMP, serum or plasma 2023 024 [facility] Not available 07/30/2024 19:56:49 TSH, serum or plasma 2023 Not available 08/10/2024 12:19:15 T4, free, serum 2023 024 Not available 08/10/2024 12:19:[address] referral 2023 024 NATY Paige MD, 4 [facility] , [address], [address], 02/15/2025 15:09:50 vestibula r therapy referral 2023 NAT[facility], [address], [place], [address], 03/27/2024 17:11:57 Procedures None recorded. Surgeries None recorded. Imaging None recorded. Medication Orders None recorded. Patient TargetsNo targets recorded. Patient Instructions Encounter Date Encounter Id Patient Instructions Last Modified By Organization Details Last Modified Time 04/13/2024 [id number] A healthy lifestyle: care instructions [email or web address] Not available 04/19/2024 15:29:53 07/20/2024 [id number] A healthy lifestyle: care instructions Not available 07/20/2024 18:22:10 11/30/2024 [id number] A healthy lifestyle: care instructions [email or web address] Not available 11/30/2024 16:41:36 Reason for Referral Vestibular Therapy Referral for Vertigo Referring Physician: Casey Neff, Internal Medicine, Encounter Date: 03/02/2024 Neurologist Referral for Mem ory impairment Referring Physician: Casey Neff, Internal Medicine, Encounter Date: 07/20/2024 Results Created Date Observation Date Name Description Value Unit Range Abnormal Flag Note LastModifiedBy Organization Detail LastModifiedTime 07/30/2007/30/2024 Folat e [Mass /volu me] in Serum or Plasm a folate folat e Not Available Not Available 11/13/2024 16:23:44 07/30/2007/30/2024 Cobal sun (Uzma min B12) [Mass /volu me] in Serum or Plasm a vb12 vb12 Not Available Not Availa ble 11/13/2024 16:23:44 07/30/20 24 07/30/2024 Thyro tropi n [Unit s/vol ume] in Serum or Plasm a thyroid-stim ulating hormone thyro id-st imula ting hormo ne Not Available Not Available 11/13/2024 16:23:44 07/30/20 24 07/30/2024 Thyro xine (T4) free [Mass /volu me] in Serum or Plasm a free T4 free T4 Not Available Not Available 11/13/2024 16:23:44 07/30/2007/30/2024 Triio dothy iqra e (T3) Free [Mass /volu me] in Serum or Plasm a free T3 low free T3 Not Available Not Available 11/13/2024 16:23:44 07/30/20 24 07/30/2024 Compr ehens josselin metab olic 2000 panel - Serum or Plasm a sodium sodiu m Not Available Not Available 11/13/2024 16:23:44 07/30/20 24 07/30/2024 Compr ehens josselin metab olic 2000 panel - Serum or Plasm a potassium potas sium Not Available Not Available 11/13/2024 16:23:44 07/30/20 24 07/30/2024 Compr ehens josselin metab olic 2000 panel - Serum or Plasm a chloride high chlor piper Not Available Not Available 11/13/2024 16:23:44 07/30/20 24 07/30/2024 Compr ehens josselin metab olic 1999 panel - Serum or Plasm a carbon dioxide carbo n dioxi de Not Available Not Available 11/13/2024 16:23:44 07/30/20 24 07/30/2024 Compr ehens josselin metab olic 2000 panel - Serum or Plasm a anion gap low anion gap Not Available Not Available 11/13/2024 16:23:44 07/30/20 24 07/30/2024 Compr ehens josselin metab olic 2000 panel - Serum or Plasm a glucose gluco se Not Available Not Available 11/13/2024 16:23:44 10/31/07/30/2024 Compr ehens josselin metab olic 1999 panel - Serum or Plasm a BUN BUN Not Available Not Availa ble 11/13/2024 16:23:44 07/30/20 24 07/30/2024 Compr ehens josselin metab olic 2000 panel - Serum or Plasm a creatinine creat inine Not Available Not Available 11/13/2024 16:23:44 07/30/20 24 07/30/2024 Compr ehens josselin metab olic 1999 panel - Serum or Plasm a GFR 52 GFR Not Available Not Availa ble 11/13/2024 16:23:44 07/30/20 24 07/30/2024 Compr ehens josselin metab olic 2000 panel - Serum or Plasm a alkaline phosphatase alkal ine phosp hatas e Not Available Not Available 11/13/2024 16:23:44 07/30/20 24 07/30/2024 Compr ehens josselin metab olic 2000 panel - Serum or Plasm a alanine aminotransfe rase high jesus ne amino trans feras e Not Available Not Available 11/13/2024 16:23:44 07/30/20 24 07/30/2024 Compr ehens josselin metab olic 2000 panel - Serum or Plasm a aspartate aminotransfe rase high aspar dickey amino trans feras e Not Available Not Available 11/13/2024 16:23:44 07/30/20 24 07/30/2024 Compr ehens josselin metab olic 2000 panel - Serum or Plasm a bilirubin, total bilir ubin, total Not Available Not Available 11/13/2024 16:23:44 07/30/20 24 07/30/2024 Compr ehens josselin metab olic 2000 panel - Serum or Plasm a calcium calci um Not Available Not Available 11/13/2024 16:23:44 07/30/20 24 07/30/2024 Compr ehens josselin metab olic 2000 panel - Serum or Plasm a total protein total prote in Not Available Not Available 11/13/2024 16:23:44 07/30/20 24 07/30/2024 Compr ehens josselin metab olic 2000 panel - Serum or Plasm a albumin album in Not Available Not Available 11/13/2024 16:23:44 07/30/20 24 07/30/2024 Compr ehens josselin metab olic 1999 panel - Serum or Plasm a globulin globu leo Not Available Not Available 11/13/2024 16:23:44 07/30/20 24 07/30/2024 Compr ehens josselin metab olic 2000 panel - Serum or Plasm a A/G ratio A/G ratio Not Available Not Available 11/13/2024 16:23:44 07/30/20 24 07/30/2024 Lipid 1996 panel - Serum or Plasm a cholesterol tahmina stero l Not Available Not Available 11/13/2024 16:23:44 07/30/2007/30/2024 Lipid 1996 panel - Serum or Plasm a triglyceride s trigl yceri marisa Not Available Not Available 11/13/2024 16:23:44 07/30/2007/30/2024 Lipid 1996 panel - Serum or Plasm a HDL cholesterol HDL tahmina stero l Not Available Not Available 11/13/2024 16:23:44 07/30/20 24 07/30/2024 Lipid 1996 panel - Serum or Plasm a LDL cholesterol, calculated LDL tahmina stero l, calcu lated Not Available Not Available 11/13/2024 16:23:44 07/30/20 24 07/30/2024 CBC W Auto Diffe renti al panel - Blood white blood cells white blood cells Not Available Not Available 11/13/2024 16:23:43 07/30/20 24 07/30/2024 CBC W Auto Diffe renti al panel - Blood red blood cells high red blood cells Not Available Not Available 11/13/2024 16:23:43 07/30/20 24 07/30/2024 CBC W Auto Diffe renti al panel - Blood hemoglobin hemog lobin Not Available Not Available 11/13/2024 16:23:43 07/30/20 24 07/30/2024 CBC W Auto Diffe renti al panel - Blood hematocrit high hemat ocrit Not Available Not Available 11/13/2024 16:23:43 07/30/20 24 07/30/2024 CBC W Auto Diffe renti al panel - Blood mean red cell volume mean red cell volum e Not Available Not Available 11/13/2024 16:23:43 07/30/20 24 07/30/2024 CBC W Auto Diffe renti al panel - Blood mean red cell hemoglobin mean red cell hemog lobin Not Available Not Available 11/13/2024 16:23:43 07/30/20 24 07/30/2024 CBC W Auto Diffe renti al panel - Blood mean RBC HGB concentratio n mean RBC HGB liyah ntrat ion Not Available Not Available 11/13/2024 16:23:43 07/30/20 24 07/30/2024 CBC W Auto Diffe renti al panel - Blood red cell distribution width high red cell distr ibuti on width Not Available Not Available 11/13/2024 16:23:43 07/30/20 24 07/30/2024 CBC W Auto Diffe renti al panel - Blood platelets plate lets Not Available Not Available 11/13/2024 16:23:43 07/30/20 24 07/30/2024 CBC W Auto Diffe renti al panel - Blood mean platelet volume mean plate let volum e Not Available Not Available 11/13/2024 16:23:43 07/30/20 24 07/30/2024 CBC W Auto Diffe renti al panel - Blood neutrophils neutr ophil s Not Available Not Available 11/13/2024 16:23:43 07/30/20 24 07/30/2024 CBC W Auto Diffe renti al panel - Blood lymphocytes lymph ocyte s Not Available Not Available 11/13/2024 16:23:43 07/30/20 24 07/30/2024 CBC W Auto Diffe renti al panel - Blood monocytes monoc ytes Not Available Not Available 11/13/2024 16:23:43 07/30/20 24 07/30/2024 CBC W Auto Diffe renti al panel - Blood eosinophils eosin ophil s Not Available Not Available 11/13/2024 16:23:43 07/30/20 24 07/30/2024 CBC W Auto Diffe renti al panel - Blood basophils basop hils Not Available Not Available 11/13/2024 16:23:43 07/30/20 24 07/30/2024 CBC W Auto Diffe renti al panel - Blood immature granulocytes immat ure granu locyt es Not Available Not Available 11/13/2024 16:23:43 07/30/20 24 07/30/2024 CBC W Auto Diffe renti al panel - Blood neutrophils, absolute count neutr ophil s, absol ade count Not Available Not Available 11/13/2024 16:23:43 07/30/20 24 07/30/2024 CBC W Auto Diffe renti al panel - Blood lymphocytes, absolute count lymph ocyte s, absol ade count Not Available Not Available 11/13/2024 16:23:43 07/30/20 24 07/30/2024 CBC W Auto Diffe renti al panel - Blood monocytes, absolute count monoc ytes, absol ade count Not Available Not Available 11/13/2024 16:23:43 07/30/20 24 07/30/2024 CBC W Auto Diffe renti al panel - Blood eosinophils, absolute count eosin ophil s, absol ade count Not Available Not Available 11/13/2024 16:23:43 07/30/20 24 07/30/2024 CBC W Auto Diffe renti al panel - Blood basophils, absolute count basop hils, absol dae count Not Available Not Available 11/13/2024 16:23:43 07/30/20 24 07/30/2024 CBC W Auto Diffe renti al panel - Blood immature granulocytes ,absolute immat ure granu locyt es,ab solut e Not Available Not Available 11/13/2024 16:23:43 07/30/20 24 07/30/2024 CBC W Auto Diffe renti al panel - Blood nucleated red blood cells nucle ated red blood cells Not Available Not Available 11/13/2024 16:23:43 07/30/20 24 07/30/2024 CBC W Auto Diffe renti al panel - Blood NRBC# NRBC# Not Available Not Availa ble 11/13/2024 16:23:43 12/05/19 25 12/05/2024 LIPID PANEL cholesterol, total 169 mg/dL 100-19 9 Not Available [facility] ([facility]) [address] [facility] [place], [address], 12/05/2024 09:08:12 12/05/19 25 12/05/2024 LIPID PANEL triglyceride s 160 mg/dL 0-149 above high normal Not Available [facility] ([facility]) [address] [place], [address], 12/05/2024 09:08:12 12/05/19 25 12/05/2024 LIPID PANEL HDL cholesterol 60 mg/dL >39 Not Available [facility] ([facility]) [address] [place], [address], 12/05/2024 09:08:12 12/05/19 25 12/05/2024 LIPID PANEL VLDL cholesterol mercedes 27 mg/dL 5-40 Not Available [facility] ([facility]) [address] [place], [address], 12/05/2024 09:08:12 12/05/19 25 12/05/2024 LIPID PANEL LDL chol calc ([facility]) 82 mg/dL 0-99 Not Available [facility] ([facility]) [address] [place], [address], 12/05/2024 09:08:12 12/05/19 25 12/05/2024 T4, FREE T4,free(dire ct) 1.17 NG/dL 0.82-1 .77 Not Available [facility] ([facility]) [address] [place], [address], 12/05/2024 09:08:13 12/05/19 25 12/05/2024 COMP. METAB OLIC PANEL (14) glucose 93 mg/dL 70-99 Not Available [facility] ([facility]) [address] [place], [address], 12/05/2024 09:08:14 12/05/19 25 12/05/2024 COMP. METAB OLIC PANEL (14) BUN 14 mg/dL 8-27 Not Available [facility] ([facility]) [address] [place], [address], 12/05/2024 09:08:14 12/05/19 25 12/05/2024 COMP. METAB OLIC PANEL (14) creatinine 0.87 mg/dL 0.57-1 .00 Not Available [facility] ([facility]) [address] [facility] [place], [address], 12/05/2024 09:08:14 12/05/19 25 12/05/2024 COMP. METAB OLIC PANEL (14) eGFR 67 mL/mi n/1.7 3 >59 Not Available [facility] ([facility]) [address] [facility] [place], [address], 12/05/2024 09:08:14 12/05/19 25 12/05/2024 COMP. METAB OLIC PANEL (14) BUN/creatini ne ratio 16 12-28 Not Available [facility] ([facility]) [address] [facility] [place], [address], 12/05/2024 09:08:14 12/05/19 25 12/05/2024 COMP. METAB OLIC PANEL (14) sodium 142 mmol/ L 134-14 4 Not Available [facility] ([facility]) [address] [facility] [place], [address], 12/05/2024 09:08:14 12/05/19 25 12/05/2024 COMP. METAB OLIC PANEL (14) potassium 4.3 mmol/ L 3.5-5. 2 Not Available [facility] ([facility]) [address] [facility] [place], [address], 12/05/2024 09:08:14 12/05/19 25 12/05/2024 COMP. METAB OLIC PANEL (14) chloride 104 mmol/ L 96-106 Not Available [facility] ([facility]) [address] [facility] [place], [address], 12/05/2024 09:08:14 12/05/19 25 12/05/2024 COMP. METAB OLIC PANEL (14) carbon dioxide, total 24 mmol/ L 20-29 Not Available [facility] ([facility]) [address] [facility] [place], [address], 12/05/2024 09:08:14 12/05/19 25 12/05/2024 COMP. METAB OLIC PANEL (14) calcium 9.5 mg/dL 8.7-10 .3 Not Available [facility] ([facility]) [address] [place], [address], 12/05/2024 09:08:14 12/05/19 25 12/05/2024 COMP. METAB OLIC PANEL (14) protein, total 6.7 g/dL 6.0-8. 5 Not Available [facility] ([facility]) [address] [place], [address], 12/05/2024 09:08:14 12/05/19 25 12/05/2024 COMP. METAB OLIC PANEL (14) albumin 4.1 g/dL 3.7-4. 7 Not Available [facility] ([facility]) [address] [place], [address], 12/05/2024 09:08:14 12/05/19 25 12/05/2024 COMP. METAB OLIC PANEL (14) globulin, total 2.6 g/dL 1.5-4. 5 Not Available [facility] ([facility]) [address] [place], [address], 12/05/2024 09:08:14 12/05/19 25 12/05/2024 COMP. METAB OLIC PANEL (14) bilirubin, total 0.4 mg/dL 0.0-1. 2 Not Available [facility] ([facility]) [address] [place], [address], 12/05/2024 09:08:14 12/05/19 25 12/05/2024 COMP. METAB OLIC PANEL (14) alkaline phosphatase 106 IU/L 44-121 Not Available [facility] ([facility]) [address] [place], [address], 12/05/2024 09:08:14 12/05/19 25 12/05/2024 COMP. METAB OLIC PANEL (14) AST (SGOT) 23 IU/L 0-40 Not Available [facility] ([facility]) [address] [facility] [place], [address], 12/05/2024 09:08:14 12/05/19 25 12/05/2024 COMP. METAB OLIC PANEL (14) ALT (SGPT) 24 IU/L 0-32 Not Available [facility] ([facility]) [address] [place], [address], 12/05/2024 09:08:14 12/05/19 25 12/05/2024 TSH TSH 6.630 uIU/m L 0.450- 4.500 above high normal Not Available [facility] ([facility]) [address] [facility] [place], [address], 12/05/2024 09:08:15 12/05/19 25 12/05/2024 CBC WITH DIFFE RENTI AL/PL ATELE T WBC 7.7 x10e3 /uL 3.4-10 .8 Not Available [facility] ([facility]) [address] [facility] [place], [address], 12/05/2024 09:08:16 12/05/19 25 12/05/2024 CBC WITH DIFFE RENTI AL/PL ATELE T RBC 5.38 x10e6 /uL 3.77-5 .28 above high normal Not Available [facility] ([facility]) [address] [facility] [place], [address], 12/05/2024 09:08:16 12/05/19 25 12/05/2024 CBC WITH DIFFE RENTI AL/PL ATELE T hemoglobin 15.3 g/dL 11.1-1 5.9 Not Available [facility] ([facility]) [address] [facility] [place], [address], 12/05/2024 09:08:16 12/05/19 25 12/05/2024 CBC WITH DIFFE RENTI AL/PL ATELE T hematocrit 49.1 % 34.0-4 6.6 above high normal Not Available [facility] ([facility]) [address] [place], [address], 12/05/2024 09:08:16 12/05/1912/05/2024 CBC WITH DIFFE RENTI AL/PL ATELE T MCV 91 fL 79-97 Not Available [facility] ([facility]) [address] [place], [address], 12/05/2024 09:08:16 12/05/19 25 12/05/2024 CBC WITH DIFFE RENTI AL/PL ATELE T MCH 28.4 pg 26.6-3 3.0 Not Available [facility] ([facility]) [address] [place], [address], 12/05/2024 09:08:16 12/05/19 25 12/05/2024 CBC WITH DIFFE RENTI AL/PL ATELE T MCHC 31.2 g/dL 31.5-3 5.7 below low normal Not Available [facility] ([facility]) [address] [place], [address], 12/05/2024 09:08:16 12/05/1912/05/2024 CBC WITH DIFFE RENTI AL/PL ATELE T RDW 14.0 % 11.7-1 5.4 Not Available [facility] ([facility]) [address] [place], [address], 12/05/2024 09:08:16 12/05/19 25 12/05/2024 CBC WITH DIFFE RENTI AL/PL ATELE T platelets 244 x10e3 /uL 150-45 0 Not Available [facility] ([facility]) [address] [place], [address], 12/05/2024 09:08:16 12/05/19 25 12/05/2024 CBC WITH DIFFE RENTI AL/PL ATELE T neutrophils 55 % notest ab. Not Available [facility] ([facility]) [address] [facility] [place], [address], 12/05/2024 09:08:16 12/05/19 25 12/05/2024 CBC WITH DIFFE RENTI AL/PL ATELE T lymphs 34 % notest ab. Not Available [facility] ([facility]) [address] [facility] [place], [address], 12/05/2024 09:08:16 12/05/19 25 12/05/2024 CBC WITH DIFFE RENTI AL/PL ATELE T monocytes 7 % notest ab. Not Available [facility] ([facility]) [address] [facility] [place], [address], 12/05/2024 09:08:16 12/05/19 25 12/05/2024 CBC WITH DIFFE RENTI AL/PL ATELE T eos 3 % notest ab. Not Available [facility] ([facility]) [address] [facility] [place], [address], 12/05/2024 09:08:16 12/05/19 25 12/05/2024 CBC WITH DIFFE RENTI AL/PL ATELE T basos 1 % notest ab. Not Available [facility] ([facility]) [address] [facility] [place], [address], 12/05/2024 09:08:16 12/05/19 25 12/05/2024 CBC WITH DIFFE RENTI AL/PL ATELE T neutrophils (absolute) 4.2 x10e3 /uL 1.4-7. 0 Not Available [facility] ([facility]) [address] [facility] [place], [address], 12/05/2024 09:08:16 12/05/19 25 12/05/2024 CBC WITH DIFFE RENTI AL/PL ATELE T lymphs (absolute) 2.7 x10e3 /uL 0.7-3. 1 Not Available [facility] ([facility]) [address] [facility] [place], [address], 12/05/2024 09:08:16 12/05/19 25 12/05/2024 CBC WITH DIFFE RENTI AL/PL ATELE T monocytes(ab solute) 0.6 x10e3 /uL 0.1-0. 9 Not Available [facility] ([facility]) [address] [facility] [place], [address], 12/05/2024 09:08:16 12/05/19 25 12/05/2024 CBC WITH DIFFE RENTI AL/PL ATELE T eos (absolute) 0.2 x10e3 /uL 0.0-0. 4 Not Available [facility] ([facility]) [address] [facility] [place], [address], 12/05/2024 09:08:16 12/05/19 25 12/05/2024 CBC WITH DIFFE RENTI AL/PL ATELE T baso (absolute) 0.1 x10e3 /uL 0.0-0. 2 Not Available [facility] ([facility]) [address] [facility] [place], [address], 12/05/2024 09:08:16 12/05/1912/05/2024 CBC WITH DIFFE RENTI AL/PL ATELE T immature granulocytes 0 % notest ab. Not Available [facility] ([facility]) [address] [facility] [place], [address], 12/05/2024 09:08:16 12/05/19 25 12/05/2024 CBC WITH DIFFE RENTI AL/PL ATELE T immature grans (abs) 0.0 x10e3 /uL 0.0-0. 1 Not Available [facility] ([facility]) [address] [place], [address], 12/05/2024 09:08:16 12/05/19 25 12/05/2024 TRIIO DOTHY IQRA E (T3), FREE triiodothyro nine (T3), free 2.2 pg/mL 2.0-4. 4 Not Available [facility] ([facility]) [address] [facility] [place], [address], 12/05/2024 09:08:17 02/07/20 24 02/07/2024 CT, brain , w/o contr ast No observ ation record ed. [address], [place], [address], 02/13/2024 15:42:03 02/07/20 24 02/07/2024 CT, cervi mercedes spine , w/o contr ast No observ ation record ed. [address], [place], [address], 02/13/2024 15:42:19 02/29/20 24 02/29/2024 CT, head, w/o contr ast No observ ation record ed. [facility] [address] [place], [address], 03/02/2024 22:13:02 06/09/20 24 06/09/2024 , [facility] ardio gram No observ ation record ed. [facility] [address] [facility] [address], [place], [address], 06/10/2024 09:53:32 Result Notes None recorded. Problems Name Problem SNOMED Code Status Onset Date Resolution Date Notes Provider Name and Address Organization Details Recorded Time Vertigo 110145405 Active 2023 Casey Neff MD Attn: Marilu han,[address] [facility], [place], [address], [facility] 17:47:20 Coronary atherosclerosi s 067241608 Active 2023 Casey Neff MD Attn: Marilu han,[address] [facility], [place], [address], [place] [facility] 4 17:47:21 Essential hypertension 20527960 Active 2023 Casey Neff MD Attn: Marilu han,[address] [facility], [place], [address], [place] [facility] 4 17:47:23 Hyperlipidemia 43565548 Active 2023 Casey Neff MD Attn: Marilu han,[address] [facility], [place], [address], [place] [facility] 4 17:47:24 Hypothyroidism 53872431 Active 2023 Casey Neff MD Attn: Marilu han,[address] [facility], [place], [address], [place] [facility] 4 17:47:25 Chronic headache disorder 370134245 Active 2023 Casey Neff MD Attn: Chaniriya han,[address] [facility], [place], [address], [place] [facility] 4 17:47:26 Anxiety 86363741 Active 2023 Casey Neff MD Attn: Marilu han,[address] [facility], [place], [address], [place] [facility] 4 17:47:29 Memory impairment 439758328 Active 2023 Lu Ryan MA null, [place] - [facility] 16:29:01 Problem Notes None recorded. Procedures Surgical History Date Name Laterality Status Provider Name and Address Organization Details Recorded Time Mastectomy completed Dorothy Chawla Bhupendra [facility] 04/13/2024 15:36:42 lumpectomy of breast completed Rickie Chawla [facility] 04/13/2024 15:36:48 parathyroidectomy completed Bossman Chawla [facility] 04/13/2024 15:36:56 open heart surgery completed Quentin Chawla [facility] 04/13/2024 15:37:01 cataract surgery completed Augusto graham Chawla Bhupendra [place] - [facility] 04/13/2024 15:37:09 Imaging Results None recorded. Procedure Notes None recorded. Medical Equipment None Reported. Allergies Allergen ID Allergen Name Allergen Category Reaction Reaction Severity Criticality Documentation Date Start Date Code Code System Note Provider Name and Address Organization Details Recorded Time 223370 erythromy efrain medicatio n hives Not available [facility] 03/02/20242019 4053 RxNorm REGINALDO Betancourt, [place] - [facility] 5 15:00:34 786030 Aleve medicatio n Not available Not available Not available 03/02/2024 12703 1 RxNorm REGINALDO Cordova, [place] - [facility] 4 15:18:58 323049 Substance with sulfonami de structure and antibacte rial mechanism of action (substanc e) medicatio n Not available Not available Not available 03/02/2024 94642 8003 SNOMED REGINALDO Cord[place], [place] - [facility] 4 15:19:06 333662 aspirin medicatio n abdominal pain Not available Not available 08/07/2024 1191 RxNorm REGINALDO Diallo, [place] - [facility] 4 15:15:22 221951 diclofena c Not available Not available Not available Not available 11/30/20242019 3355 RxNorm unrec ogniz ed react ion (text : Unkno wn, code: [id number]) (from [facility] sour[facility] e) REGINALDO Betancourt, [place] - [facility] 5 15:00:21 Medications Name Sig Start Date Stop Date Status Note LastModified by Organization Details LastModified Time atorvasta tin 20 mg tablet TAKE 1 TABLET BY MOUTH EVERY DAY WITH 10MG TABLET. 2024 active Not Available Not Available Not Avai lable atorvasta tin 10 mg tablet TAKE 1 TABLET BY MOUTH EVERY DAY WITH 20MG TABLET. 2024 active Not Available Not Available Not Avai lable clopidogr el 75 mg tablet TAKE 1 TABLET BY MOUTH EVERY DAY active Not Available Not Available No t Available pantopraz ole 40 mg tablet,de layed release TAKE 1 TABLET BY MOUTH EVERY DAY 2024 active Not Available Not Available Not Avai lable levothyro xine 125 mcg tablet TAKE 1 TABLET BY MOUTH EVERY DAY IN THE MORNING 2024 active Not Available Not Available Not Avai lable furosemid e 20 mg tablet TAKE 1 TABLET BY MOUTH EVERY DAY active Not Available Not Available No t Available albuterol sulfate HFA 90 mcg/actua tion aerosol inhaler INHALE 2 PUFFS BY MOUTH EVERY 4 HOURS active Not Available Not Available No t Available ondansetr on 4 mg disintegr ating tablet DISSOLVE 1 TABLET ON THE TONGUE EVERY 8 HOURS NEEDED FOR NAUSEA OR VOMITING 11/30 completed Not Available Not Available Not Available metronida zole 0.75 % topical gel APPLY TO ROSACEA PRONE AREAS TWICE DAILY 11/30 completed Not Available Not Available Not Available diazepam 5 mg tablet TAKE 1/2 TABLET BY MOUTH TWICE DAILY 11/30 completed has not been taking d/t vertigo has resolved w therapy Not Available Not Available Not Available Xiidra 5 % eye drops in a dropperet te INSTILL 1 DROP IN BOTH EYES TWICE DAILY 12 HOURS APART active reports taking as needed and sparingl y as they are expensiv e Not Available Not Available Not Available Vitals Date Recorded Body height Body mass index (BMI) Body weight Heart rate Oxygen saturation Oxygen saturation in Arterial blood by Pulse oximetry Systolic blood pressure Diastolic blood pressure Provider Name and Address Organization Details Last Updated DateTime 5 152.4 cm 43 kg/m2 81658.7 6 g 84 /min 96 % 96 % 124 mm[Hg] 84 mm[Hg] Karen Kimbrough MA [facility] 5 15:00:01 Date Recorded Body height Body mass index (BMI) Body weight Heart rate Oxygen saturation Oxygen saturation in Arterial blood by Pulse oximetry Systolic blood pressure Diastolic blood pressure Provider Name and Address Organization Details Last Updated DateTime 4 152.4 cm 42.6 kg/m2 79545.2 8 g 79 /min 98 % 98 % 130 mm[Hg] 80 mm[Hg] Adali Waite MA [facility] 4 15:24:45 Date Recorded Body height Body mass index (BMI) Body weight Heart rate Respiratory rate Oxygen saturation Oxygen saturation in Arterial blood by Pulse oximetry Systolic blood pressure Diastolic blood pressure Provider Name and Address Organization Details Last Updated DateTime 4 152.4 cm 43.2 kg/m2 527391. 06 g 84 /min 14 /min 97 % 97 % 124 mm[Hg] 72 mm[Hg] DorothyERICK Sullivan [facility] 4 15:41:08 Date Recorded Body height Body mass index (BMI) Body weight Heart rate Oxygen saturation Oxygen saturation in Arterial blood by Pulse oximetry Systolic blood pressure Diastolic blood pressure Provider Name and Address Organization Details Last Updated DateTime 4 152.4 cm 43.5 kg/m2 638502. 3 g 86 /min 97 % 97 % 120 mm[Hg] 70 mm[Hg] Emma Simeon MA [facility] 4 14:55:07 Social History Question Answer Notes LastModified by Organizat ion Details LastModified Time Tobacco Smoking Status Never Smoker Adali Waite MA [facility] 03/02/2024 15:22:24 Do You Have An Advance Directive? Yes Don't Remember, But Thinks She Does Information not available 07/20/2024 Are You Blind Or Do You Have Difficulty Seeing? No Information not available 03/02/2024 What Is Your Level Of Caffeine Consumption? Occasional Information not available 07/20/2024 In The 14 Days Before Symptom Onset, Have You Had Close Contact With A Laboratory-confir med COVID-19 While That Case Was Ill? No Information not available 07/20/2024 In The 14 Days Before Symptom Onset, Have You Had Close Contact With A Person Who Is Under Investigation For COVID-19 While That Person Was Ill? No Information not available 07/20/2024 Have You Been To An Area Known To Be High Risk For COVID-19? No Information not available 07/20/2024 Are You Deaf Or Do You Have Serious Difficulty Hearing? No Information not available 03/02/2024 What Type Of Diet Are You Following? REGULAR Information not available 07/20/2024 Are There Any Guns Present In Your Home? No Information not available 07/20/2024 What Was The Date Of Your Most Recent Tobacco Screening? 11/30/2024 gwardma Information not available 11/30/2024 What Is Your Relationship Status? Information not available 03/02/2024 Do You Use Your Seat Belt Or Car Seat Routinely? Yes Information not available 07/20/2024 Do You Have Smoke And Carbon Monoxide Detectors In Your Home? Yes Information not available 07/20/2024 Do You Use Sunscreen Routinely? Yes Information not available 07/20/2024 Has Tobacco Cessation Counseling Been Provided? No Information not available 07/20/2024 Sex: Female Functional Status Question Answer Note LastModified by Organizat ion Details LastModified Time Do you use any illicit or recreational drugs? No Information not available 07/20/2024 Do you or have you ever used any other forms of tobacco or nicotine? No Information not available 07/20/2024 What is your level of alcohol consumption? None Information not available 03/02/2024 Are you currently employed? No Information not available 07/20/2024 Are you able to care for yourself? Yes Information not available 03/02/2024 What is your exercise level? None Information not available 07/20/2024 Mental Status Question Answer Note LastModified by Organization D etails LastModified Time Do you feel stressed (tense, restless, nervous, or anxious, or unable to sleep at night)? PC5891-4 Information not available 07/20/2024 Family History Nothing Reported. Medical History Condition Response High Blood Pressure Y Thyroid Problems Y Anxiety Disorder Y High Cholesterol Y Headaches Y Gynecological HistoryNo gynecological history recorded. Obstetrics History GPAL:G 0 P 0 0 0 0 Immunizations Vaccine Type Date Status Note Provider Nam e and Address Organization Details Recorded Time Influenza, split virus, quadrivalent, preservative 4 completed [place]ICK Blood[place] [facility] 04/13/2024 15:35:49 Influenza, high-dose, quadrivalent, PF 3 completed ERICK Blood [place] [facility] 04/13/2024 15:35:49 Influenza, high-dose, quadrivalent, PF 1 completed Dorothy Chawla [place] [facility] 04/13/2024 15:35:49 Influenza, high-dose, quadrivalent, PF 0 completed Dorothy [place]aw[place] [facility] 04/13/2024 15:35:49 COVID-19, mRNA, LNP-S, PF, 30 mcg/0.3 mL dose 1 completed [place] [facility] 04/13/2024 15:35:49 COVID-19, mRNA, LNP-S, PF, 30 mcg/0.3 mL dose 1 completed [place] [facility] 04/13/2024 15:35:49 COVID-19, mRNA, LNP-S, PF, 30 mcg/0.3 mL dose 1 completed [place] [facility] 04/13/2024 15:35:49 COVID-19, mRNA, LNP-S, PF, 30 mcg/0.3 mL dose 1 completed [place]YSE Blood[place] [facility] 04/13/2024 15:35:49 COVID-19, mRNA, LNP-S, PF, 30 mcg/0.3 mL dose 2 completed [place]aw[place] [facility] 04/13/2024 15:35:49 COVID-19, mRNA, LNP-S, PF, 30 mcg/0.3 mL dose 1 completed [place] [facility] 04/13/2024 15:35:49 COVID-19, mRNA, LNP-S, bivalent, PF, 30 mcg/0.3 mL dose 2 completed Dorothy [place]aw[place] [facility] 04/13/2024 15:35:49 RSV, recombinant, protein subunit RSVpreF, adjuvant reconstituted, 0.5 mL, PF 3 completed [place]aw[place] [facility] 04/13/2024 15:35:49 COVID-19, mRNA, LNP-S, PF, opal-sucrose, 30 mcg/0.3 mL 3 completed Dorothy Chawla[place] [facility] 04/13/2024 15:35:49 influenza, unspecified formulation 8 completed Dorothy [place]aw[place] [facility] 04/13/2024 15:35:49 Pneumococcal conjugate PCV 13 6 completed Dorothy Chaw[place] [facility] 04/13/2024 15:35:49 Influenza, high-dose, trivalent, PF 9 completed [place]aw[place] [facility] 04/13/2024 15:35:49 Influenza, high-dose, trivalent, PF 7 completed Dorothy [place]aw[place] [facility] 04/13/2024 15:35:49 Influenza, high-dose, trivalent, PF 6 completed Dorothy [place]aw[place] [facility] 04/13/2024 15:35:49 Influenza, split virus, trivalent, PF 4 completed Dorothy [place] [facility] 04/13/2024 15:35:49 Influenza, split virus, quadrivalent, PF 2 completed Dorothy [place]aw[place] [facility] 04/13/2024 15:35:49 COVID-19, mRNA, LNP-S, PF, opal-sucrose, 30 mcg/0.3 mL 4 completed Jaylyn [place] [facility] 11/11/2024 11:50:43 Influenza, high-dose, trivalent, PF 4 completed Jaylyn [place] [facility] 11/11/2024 11:50:43 Pneumococcal conjugate PCV20, polysaccharide UQP280 conjugate, adjuvant, PF 5 completed Casey Neff MD Attn: Accounting,[address], [place], [address], [facility] 12/27/2024 15:48:06 Past Encounters Encounter ID Performer Location Encounter Start Date Encounter Closed Date Diagnosis/Indication Diagnosis SNOMED-CT Code Diagnosis ICD10 Code Diagnosis Note [id number] Casey Neff MD [facility] [place] [facility] [place] [address] [place] [address] 03/02/2024 15:04:44 03/02/2024 16:32:16 Vertigo 691865784 R42 Coronary atherosclerosis 911578446 I25.10 Essential hypertension 17543007 I10 Hyperlipidemia 62472185 E78.5 Hypothyroidism 07217831 E03.9 Chronic he adache disorder 300235245 G44.89 Anxiety 00515306 F41.9 [id number] Casey Neff MD [facility] [place] [facility] [place] [address] [place] [address] 04/13/2024 15:06:33 04/13/2024 16:51:30 Morbid obesity 468521880 E66.01 Vertigo 879599333 R42 [id number] Casey Neff MD [facility] [place] [facility] [place] [address] [place] [address] 07/20/2024 14:42:19 07/20/2024 16:31:09 Morbid obesity 022379166 E66.01 Essential hypertension 61888181 I10 Hyperlipidemia 97333346 E78.5 Memory impairment 888718 006 R41.3 Chronic he adache disorder 216563071 G44.89 Anxiety 59631855 F41.9 Coronary atherosclerosis 569939991 I25.10 Hypothyroidism 03607324 E03.9 [id number] Casey Neff MD [facility] [place] [facility] [place] [address] [place] [address] 11/30/2024 14:42:33 11/30/2024 15:43:15 Body mass index 40+ - severely obese 632990306 Z68.41 Obesity 665657396 E66.9 Essential hypertension 58324337 I10 Hypothyroidism 36345106 E03.9 Administra tion of pneumococcal vaccine 01093189 Z23 Anxiety 35952007 F41.9 Hyperlipidemia 80672808 E78.5 Coronary atherosclerosis 225438363 I25.10 Health Concerns Section Related Observation LastModified by Organization Detai ls LastModified Time None Recorded Concern Status LastModified by Organization Details LastModified Time None Recorded Advance Directives Directive Y: Don't remember, but think s she does Payers Insurance Date Sequence Insurance Name Policy Number Policy Fraser Covered Member ID Fraser Member ID Guarantor Name 02/03/2025 1 [facility] (MEDICARE REPLACEMENT/A DVANTAGE - PPO) [id number] Jaylyn Chaparro [id number] Jaylyn Shankar Notes Date Note Type Note Provider Name and Address Organization Details Recorded Time 03/02/2024 text/html CAD no chest seth n dyslipidemia taking atorvastatin going to watch diet hypothyroid no heat or cold intolerance GERD doing fine on pantoprazole. Headaches have been stable anxiety stable but high no SI or HI history of breast cancer nothing referable to suggest recurrence urinary incontinence chronic. Also into ER for dizziness and vertigo CT head negative her symptoms are worse rolling over in bed does not been any visual disturbances no new headache better no speech disturbance Casey Neff MD Attn: [address] [place], [address], [place] [facility] 04/02/2024 17:48:09 04/13/2024 text/html short interval follow up of vertigo which is much better Casey Neff MD Attn: [address] [place], [address], [place] [facility] 04/19/2024 15:29:56 07/20/2024 text/html CAD no chest seth n dyslipidemia taking atorvastatin going to watch diet hypothyroid no heat or cold intolerance GERD doing fine on pantoprazole. Headaches have been stable anxiety stable but high no SI or HI history of breast cancer nothing referable to suggest recurrence urinary incontinence chronic. times she feels like she has trouble finding words Casey Neff MD Attn: [address] [place], [address], [place] [facility] 08/01/2024 22:39:55 11/30/2024 text/html energy level renetta r still needs to see Neurology hypertension no headache or dizziness CAD no chest pain or shortness of breath GERD no complaints Casey Neff MD Attn: [address] [facility], [place], [address], [facility] - [facility] 12/27/2024 16:24:17 OBGyn Episode No OBEpisode recorded.
--- OUTSIDE RECORDS SUMMARY | 2025-03-30 14:35 | XMS_ITS | Patient Health Record ---
Author Organization [facility] Address [address] [place] [address] Care Team Providers Care Assistant Toddler Teacher Name Role Phone Ermias Neff MD Primary Care Provider Neri QUINTANA MD, LICO Unavailable Allergies Allergen (clinical drug ingredient) Drug/Non Drug Allergy documented on EMR Reaction Allergy Type Onset Date Status Aleve Unknown Drug Allergy Active erythromycin Erythromycin Unknown Drug Allergy A ctive Contrast Allergy PreMed Pack IV dye Drug Allergy Active Substance with sulfonamide structure and antibacterial mechanism of action (substance) Sulfa Antibiotics Unknown Drug Allergy Active Reason For Referral No Information Medications Medication SIG (Take, Route, Frequency, Duration) Notes Start Date End Date Status Xanax 0.25 MG 1 tablet Orally prn Active Calcium Active Albutein Active Levothyroxine Sodium 125 MCG 1 tablet in the morning on an empty stomach Orally Once a day Active Furosemide 20 MG 5 ml Orally Once a day Active Atorvastatin Calcium 10 MG 1 tablet Oral ly Once a day Active Clopidogrel Bisulfate 75 MG 1 tablet Ora lly Once a day Active Magnesium Active Vitamin A & D Active Problems Problem Type SNOMED Code ICD Code Onset Dates Problem Status W/U Status Risk Notes Problem Gastro-esophagea l reflux disease without esophagitis (859335092) Gastro-esophage al reflux disease without esophagitis (K21.9) Active confirmed Plan Of Treatment No Information Insurance Providers Payer Name Payer Address Payer Phone Subscriber Number Group Number Insured Name Patient Relationship to Insured Coverage Start Date Coverage End Date [employer] Medicare Advantage PPO [address] [address] [place] [address] [id number] Jaylyn Chaparro Self - patient is the insured Medical (General) History Medical History History ICD Code breast cancer with mastectomy arthritis asthma anxiety gastroesophageal reflux disease (GERD) gallstones diverticulosis migraine headaches Surgical History Surgery Date(Month/Year) tubal ligation mastectomy 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
--- OUTSIDE RECORDS SUMMARY | 2025-03-30 14:35 | XMS_ITS | Encounter Summary ---
Author Organization [facility] Address [address] [place] [address] Care Team Providers Care Drafter Geophysical Name Role Phone Ermias Neff MD Primary Care Provider + [phone] Doug Be MD Unavailable Encounter Details Date Type Department Care Team (Late st Contact Info) Description 02/24/2025 Results Follow-Up [facility] [address] [facility] [address] [place] [address] Ermias Paige MD [address] [place] [address] [address] [place] [address] Vitamin B12, Vitamin B6, Folate, Additional followed-up results: 2 Social History Tobacco Use Types Packs/Day Years Used Date Smoking Tobacco: Never Smokeless Tobacco: Never AUDIT-C Answer Date Recorded Q1: How often do you have a drink containing alc ohol? Never 08/02/2021 Average Number of Drinks Not on file 021 Q3: How often do you have si x or more drinks on one occasion? 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 * Telephone Encounter - Shaneka Petty MA - 02/25/2025 2:20 PM CDT Pt returned call called pt back Unable to leave message * Result Encounter Note - Jemima Orosco MA - 02/24/2025 11:07 AM CDT Lvm for pt to call back. documented in this encounter Plan of Treatment Not on file documented as of this encounter Visit Diagnoses Not on filedocumented in this encounter Care Teams Drafter Geophysical Relationship Specialty Start Date End Date Ermias Neff MD PCP - General 09/29/17 Doug Be MD [address] [facility] [address] [facility] [address] [place] [address] Radiation Oncologist Radiation Oncology 10/06/18 documented as of this encounter
--- OUTSIDE RECORDS SUMMARY | 2025-03-30 14:36 | XMS_ITS | Encounter Summary ---
Author Organization [facility] Address [address] [place] [address] Care Team Providers Care Digital Proofing And Platemaker Name Role Phone Ermias Neff MD Primary Care Provider [phone] Encounter Details Date Type Department Care Team (Late st Contact Info) Description 06/10/2024 Lab Requisition [facility] - DermPath Lab [address] [facility] [place] [id number] Shadia Davis MD [address] [place] [address] [place] [address] Basal cell carcinoma of skin of right upper limb, including shoulder Social History Tobacco Use Types Packs/Day Years Used Date Smoking Tobacco: Never Smokeless Tobacco: Never Comments Unknown Sex and Gender Information Value Date Recorded Sex Assigned at Not on file 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 Gender Identity Not on file Sexual Orientation Not on file documented as of this encounter Plan of Treatment Not on file documented as of this encounter Procedures Procedure Name Priority Date/Time Associated Diagnosis Comments DERMATOPATHOLOGY Routine 06/10/2024 12:0 0 AM CDT Basal cell carcinoma of skin of right upper limb, including shoulder documented in this encounter Results * DERMATOPATHOLOGY (06/10/2024 12:00 AM CDT) Case Report Dermatopathology Report Case: [id number] Authorizing Provider: Shadia Davis MD Collected: 06/10/2024 12:00 AM Ordering Location: [facility] - Received: 06/11/2024 01:11 PM DermPath Lab Pathologist: Neetu Carlos MD Specimen: Skin, right posterior shoulder 3:24 PM CDT DERMATOPATHOLOGY LABORATORY Final Diagnosis Specimen A. SKIN, right posterior shoulder: DERMAL SCAR RESIDUAL BASAL CELL CARCINOMA NOT IDENTIFIED (L90.5) 3:24 PM CDT DERMATOPATHOLOGY LABORATORY at 1524 CDT Clinical History BCC *check margins* 3:24 PM CDT DERMATOPATHOLOGY LABORATORY Gross Description Specimen A: Received is one formalin filled container labeled with the patient's name and designated right posterior shoulder. The specimen consists of a non-oriented ellipse of skin measuring 41d62y1 mm. The epidermal surface is unremarkable. The margin is inked green. The 12 o'clock and 6 o'clock tips are submitted in cassette 1. The remainder of the ellipse is serially sectioned and submitted in cassette 2. Jar 0. 3:24 PM CDT DERMATOPATHOLOGY LABORATORY Microscopic Description Specimen A. SKIN, right posterior shoulder: There are fibroblasts and collagen bundles oriented parallel to the skin surface. There are elongated blood vessels, some of which are oriented perpendicular to the skin surface. No basal cell carcinoma is identified. 3:24 PM CDT DERMATOPATHOLOGY LABORATORY Disclaimer An external and internal positive and negative controls are appropriate for the histochemical, immunohistochemical and immunofluorescence stain(s) in this case (if any), except where stated explicitly. The performance characteristics of the stain(s) cited in this report were developed and its performance characteristic determined by the Dermatopathology Laboratory at [facility], directed by Dr. Shavonne Keane. These tests need not be, and therefore are not, approved by the [place] Food and Drug Administration. The tests are used for clinical purposes. Billing Codes Specimen Charges Stain Charges 61259 1 3:24 PM CDT DERMATOPATHOLOGY LABORATORY Embedded Images 3:24 PM CDT DERMATOPATHOLOGY LABORATORY Pathology/Cytolog y TISSUE SPECIMEN FROM SKIN / Unknown 06/10/2024 06/11/2024 1:11 PM CDT us Shadia Davis MD LAB - PATHOLOGY/CYTOLOGY ORDERAB LES Final Result DERMATOPATHOLOGY LABORATORY [facility] - Department of Dermatology [address] [phone] documented in this encounter Visit Diagnoses Diagnosis Basal cell carcinoma of skin of right upper limb, including shoulder Basal cell carcinoma of skin of upper limb, including shoulder documented in this encounter Care Teams Digital Proofing And Platemaker Relationship Specialty Start Date End Date Ermias Neff MD PCP - General Internal Medicine 11/14/17 documented as of this encounter
--- OUTSIDE RECORDS SUMMARY | 2025-03-30 14:36 | XMS_ITS | Encounter Summary ---
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 She states that she has decided not ot have LP. Dr. Paige notified. Lyudmila Villanueva RN documented in this encounter Plan of Treatment Not on file documented as of this encounter Visit Diagnoses Not on filedocumented in this encounter Care Teams Mold Engraver Relationship Specialty Start Date End Date Ermias Neff MD PCP - General 09/29/17 Doug Be MD [address] [facility] # LL LL [address] [place] [address] Radiation Oncologist Radiation Oncology 10/06/18 documented as of this encounter
--- OUTSIDE RECORDS SUMMARY | 2025-03-30 14:36 | XMS_ITS | Clinical Summary ---
Author Organization [address] Address [facility] [place] [address] Care Team Providers Care Kitchen Worker Name Role Phone Ermias Neff MD Primary Care Provider + [phone] Doug Be MD Unavailable Allergies Active Allergy Reactions Criticality Noted Date Comments Diclofenac Unknown 10/06/2019 Erythromycin Stomach upset Low 05/03/2011 Erythromycin Base Hives Medium 10/06/2019 Iodinated Contrast Media Hives Medium 10/06/2019 Iohexol Stomach upset Low 05/03/2011 Naproxen Unknown,Edema Medium 2015 Sulfa (Sulfonamide Antibiotics) Swelling,Hives Medium 01/29/2013 Hives Medications albuterol (PROVENTIL,OZZIE ANNA) 1.25 mg/3 mL nebulizer solution Active ALPRAZolam (XANAX) 0.25 mg tablet Take by mouth as needed. Active amLODIPine (NORVASC) 5 mg tablet TAKE 1 TABLET BY MOUTH AT NIGHT 6 09/27/2018 Active atorvastatin (LIPITOR) 10 mg tablet TAKE 1 TABLET BY MOUTH QD. TAKE WITH 20 MG FOR TOTAL OF 30 MG DAILY DOSE 10/14/2017 Active levothyroxine (SYNTHROID, LEVOTHROID) 150 mcg tablet Take 150 mcg by mouth daily. 1 09/29/2018 Active morphine (MSIR) 15 mg tablet TAKE 1 TABLET BY MOUTH NEEDED 0 07/09/[address] (PROTONIX) 40 mg EC tablet Take 40 mg by mouth daily. 1 07/14/2018 Active furosemide (LASIX) 20 mg tablet Take 20 mg by mouth 2 (two) times a day. Active clopidogreL (PLAVIX) 75 mg tablet Take 1 tablet (75 mg total) by mouth daily 08/03/2021 Active Active Problems Problem Noted Date Diagnosed Date Memory impairment 02/15/2025 Parkinson's disease without dyskinesia or fluctuating manifestations 02/15/2025 Encounter for follow-up surveillance of breast c ancer 10/06/2018 Carcinoma of lower-outer tres drant of right breast in female, estrogen receptor positive 10/06/2018 Cancer Staging:Clinical stage from 10/18/2005: cT1, cN0, cM0, G1, ER: Not assessed, [place]: Not assessed, HER2: Not assessed - Signed by Love Aguilera, PhD on 10/06/2018 Pathologic stage from 11/02/2005: pT1b, pN0(sn), cM0, G1, ER: Positive, [place]: Positive, HER2: Not assessed - Signed by Love Aguilera, PhD on 10/06/2018 Encounters Date Type Department Care Team Description 03/29/2025 Telephone [facility] [address] [place] [address] Lyudmila Villanueva RN 03/05/2025 4:29 PM CDT - 03/05/2025 11:59 PM CDT Hospital Encounter [facility] [address] [place] [address] Ermias Paige MD Memory impairment Discharge Disposition: Discharge to home or self care 02/24/2025 Results Follow-Up [facility] [address] [place] [address] [place] [phone] Ermias Paige MD Vitamin B12, Vitamin B6, Folate, Additional followed-up results: 2 02/15/2025 2:00 PM CDT Lab [address] Memory impairment 02/15/2025 1:00 PM CDT Office Visit [facility] [address] [place] [phone] Ermias Paige MD Memory impairment (Primary Dx); Parkinson's disease without dyskinesia or fluctuating manifestations (HCC) from Last 3 Months Surgical History Surgery Date Site/Laterality Comments CORONARY ARTERY BYPASS GRAFT X 5 MASTECTOMY 09/30/1990 - 09/29/1991 Left BREAST LUMPECTOMY 09/30/2005 - 09/29/2006 Right PARATHYROIDECTOMY UPPER GASTROINTESTINAL ENDOSCOPY Medical History Medical History Date Comments GERD (gastroesophageal reflux disease) Hyperlipidemia Asthma Hypothyroidism H/O Bryan thyroiditis Depression Anxiety Urinary incontinence History of transfusion PMR (polymyalgia rheumatica) History of coronary artery stent placement 2006 x 5 Cancer (HCC) Breast cancer (HCC) 1990, 2005 Cataract bilateral Coronary artery disease Hypertension Family History Medical History Relation Name Comments Thyroid cancer Brother Cervical cancer Mother Family histo ry of malignant neoplasm of cervix - (Added by TW Conv) Relation Name Status Comments Brother Mother Social History Tobacco Use Types Packs/Day Years Used Date Smoking Tobacco: Never Smokeless Tobacco: Never Tobacco Cessation:Counseling Given: Not Answered AUDIT-C Answer Date Recorded Q1: How often do you have a drink containing alc ohol? Never 08/02/2021 Average Number of Drinks Not on file 021 Q3: How often do you have si x or more drinks on one occasion? 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 Gender Identity Not on file Sexual Orientation Not on file Obstetrics History Last Filed Vital Signs Vital Sign Reading Time Taken Comments Blood Pressure 130/70 02/15/2025 12:50 PM CDT Pulse 85 02/15/2025 12:50 PM CDT Temperature 36.6 C (97.8 F) 08/02/2021 9:50 AM CDT Respiratory Rate 14 08/02/2021 11:42 AM CDT Oxygen Saturation 94% 02/15/2025 12:50 PM CDT Inhaled Oxygen Concentration - - Weight 98.9 kg (218 lb) 03/05/2025 5:36 PM CDT Height 152.4 cm (5') 03/05/2025 5:36 PM CDT Body Mass Index 42.58 03/05/2025 5:36 PM CDT Plan of Treatment Health Maintenance Due Date Last Done Comments Depression Screening 1945 Fall Risk Assessment 1945 DTaP/Tdap/Td Vaccine (1 - Tdap) 1954 Hepatitis B Screening 1961 Zoster Vaccine (1 of 2) 1993 Well Visit 65+ 2008 Pneumococcal vaccine 65+ (2 of 2 - PPSV23) 02/07/2016 12/13/2015 Osteoporosis Screening-Bone Density Scan 07/08/2024 07/08/2022 Influenza Vaccine (Season Ended) 2025 07/28/2020, 07/31/2019, 08/05/2018, Additional history exists Procedures Procedure Name Priority Date/Time Associated Diagnosis Comments MRI BRAIN COGNITIVE IMPAIRMENT WO CONTRAST Schedule SANTOSH, Read Routine (Patient lives out of area) 03/05/2025 6:17 PM CDT Memory impairment VITAMIN B6 Routine 02/15/2025 2:06 PM CDT Memory impairment T4, FREE Routine 02/15/2025 2:03 PM CDT Memory impairment THYROID FUNCTION CASCADE Routine 02/15/2025 2:03 PM CDT Memory impairment FOLATE Routine 02/15/2025 2:03 PM CDT Memory impairment VITAMIN B12 Routine 02/15/2025 2:03 PM CDT Memory impairment from Last 3 Months Results * MRI Brain Cognitive Impairment WO Contrast (03/05/2025 6:17 PM CDT) Anatomical Region Laterality Modality Head and Neck N/A Magnetic Resonan ce 03/08/2025 12:5 5 PM CDT Addenda Addendum by Will Arredondo MD on 03/10/2025 11:23 AM CDT 3-D images were created on the scanner as part of this examination. Edited by: Giovany Luther Electronically signed by: Will Arredondo M.D. Impressions 03/08/2025 12:55 PM CDT Overall, the pattern of atrophy is nonspecific. 1. Hippocampal volumes within normal limits. Minimal small vessel disease.. 2. Total cerebral microhemorrhages: 0. New/incident cerebral microhemorrhages: 0 3. Superficial siderosis is 0 Electronically signed by: Will Arredondo M.D. Narrative 03/08/2025 12:55 PM CDT EXAMINATION: Magnetic resonance imaging (MRI) of the brain and brainstem without contrast HISTORY: 79-year-old woman memory loss, possible Parkinson's disease. Memory loss progressing over past few years difficulty recording words during conversation. Coronary artery disease, carcinoma the breast hypertension TECHNIQUE: Multiplanar multi-weighted MRI of the brain and brainstem was performed without intravenous contrast using a protocol specific to assess patients with memory complaints. T1-weighted sagittal MPRage images of the brain were postprocessed on [employer] to generate segmented brain volumes using commercial software. Results were compared to 10th and 90th percentiles of healthy age-/gender-matched population. Graphs were sent to [employer] PACS. The protocol specifically includes FLAIR to assess for potential infarcts and white matter lesions associated with vascular cognitive impairment and with susceptibility sensitive sequences for detection of cerebral microhemorrhages. COMPARISON: None Available. FINDINGS: The scalp and calvarium are normal. The superior sagittal sinus demonstrates normal venous flow. The corpus callosum is normal in shape and signal intensity. The posterior fossa is unremarkable. The pituitary and sella are normal. The brainstem and craniocervical junction are unremarkable. Diffusion weighted images reveal no hyperintensities to suggest acute cerebral infarction. The susceptibility weighted sequences reveal no evidence of acute or chronic hemorrhage. The ventricles are normal in size and position , age-appropriate, without evidence of hydrocephalus. Normal flow voids seen within the [place]. Deep venous sinuses are patent. The paranasal sinuses are normal. The visualized portions of the mastoids are unremarkable. Bilateral cataract surgery. Normal flow voids are demonstrated in the carotid arteries and basilar artery. QUANTITATIVE ASSESSMENT: Assessment of hippocampal volumes: Quantitative assessment was performed using [employer] and is reported. Hippocampal volume: Left side: Absolute volume 3.1 mL corresponding to 0.23% normalized to 0.19-0.25%. Right side: Absolute volume 3.1 mL, corresponding to 0.23%, normalized to 0.19-0.25% QUALITATIVE ASSESSMENT: Small infarcts (< 10 mm): . 0 Infarcts (>10 mm): . 0 White matter hyperintensities (Fazekas grade): . Mild Prior cerebral microhemorrhages: . 0 New/incident cerebral microhemorrhages: . 0 Total cerebral microhemorrhages: . 0 Prior siderosis: There is no prior area of siderosis. New/incident siderosis: None. Procedure Note Will Arredondo MD - 03/08/2025 EXAMINATION: Magnetic resonance imaging (MRI) of the brain and brainstem without contrast HISTORY: 79-year-old woman memory loss, possible Parkinson's disease. Memory loss progressing over past few years difficulty recording words during conversation. Coronary artery disease, carcinoma the breast hypertension TECHNIQUE: Multiplanar multi-weighted MRI of the brain and brainstem was performed without intravenous contrast using a protocol specific to assess patients with memory complaints. T1-weighted sagittal MPRage images of the brain were postprocessed on [employer] to generate segmented brain volumes using commercial software. Results were compared to 10th and 90th percentiles of healthy age-/gender-matched population. Graphs were sent to [employer] PACS. The protocol specifically includes FLAIR to assess for potential infarcts and white matter lesions associated with vascular cognitive impairment and with susceptibility sensitive sequences for detection of cerebral microhemorrhages. COMPARISON: None Available. FINDINGS: The scalp and calvarium are normal. The superior sagittal sinus demonstrates normal venous flow. The corpus callosum is normal in shape and signal intensity. The posterior fossa is unremarkable. The pituitary and sella are normal. The brainstem and craniocervical junction are unremarkable. Diffusion weighted images reveal no hyperintensities to suggest acute cerebral infarction. The susceptibility weighted sequences reveal no evidence of acute or chronic hemorrhage. The ventricles are normal in size and position , age-appropriate, without evidence of hydrocephalus. Normal flow voids seen within the [place]. Deep venous sinuses are patent. The paranasal sinuses are normal. The visualized portions of the mastoids are unremarkable. Bilateral cataract surgery. Normal flow voids are demonstrated in the carotid arteries and basilar artery. QUANTITATIVE ASSESSMENT: Assessment of hippocampal volumes: Quantitative assessment was performed using [employer] and is reported. Hippocampal volume: Left side: Absolute volume 3.1 mL corresponding to 0.23% normalized to 0.19-0.25%. Right side: Absolute volume 3.1 mL, corresponding to 0.23%, normalized to 0.19-0.25% QUALITATIVE ASSESSMENT: Small infarcts (< 10 mm): . 0 Infarcts (>10 mm): . 0 White matter hyperintensities (Fazekas grade): . Mild Prior cerebral microhemorrhages: . 0 New/incident cerebral microhemorrhages: . 0 Total cerebral microhemorrhages: . 0 Prior siderosis: There is no prior area of siderosis. New/incident siderosis: None. IMPRESSION: Overall, the pattern of atrophy is nonspecific. 1. Hippocampal volumes within normal limits. Minimal small vessel disease.. 2. Total cerebral microhemorrhages: 0. New/incident cerebral microhemorrhages: 0 3. Superficial siderosis is 0 Electronically signed by: Will Arredondo M.D. Ermias Paige MD IMG MRI PROCEDURES Edit ed Result - Final * (ABNORMAL) Vitamin B6 (02/15/2025 2:06 PM CDT) Pyridoxal phosphate (Vit B6) 2(L) 5 - 50 mcg/L [place] ref Lab Comment: ADDITIONAL INFORMATION This test was developed and its performance characteristics determined by [facility] in a manner consistent with CLIA requirements. This test has not been cleared or approved by the U.S. Food and Drug Administration. Test Performed by: [facility] [place] [address] Manager Of Creative Services: Elise Acevedo Ph.D.; CLIA# [id number] Blood 02/15/2025 2:06 PM CDT 02/15/2025 3:32 PM CDT Ermias Paige MD LAB BLOOD ORDERABLES Fi nal Result [facility]) [address] [facility] [place] [address] [place] ref Lab * (ABNORMAL) Thyroid Function [place] (02/15/2025 2:03 PM CDT) Pathologist [facility] TSH 5.35(H) 0.30 - 4.20 mcIUnit/mL Blood 02/15/2025 2:03 PM CDT 02/15/2025 3:36 PM CDT Erimas Paige MD LAB BLOOD ORDERABLES Fi nal Result Performing Organization Address City/[facility] Co de Phone Number ANUPAM ALVES (HAHIRA) [address] [facility] [place] [address] * T4, free (02/15/2025 2:03 PM CDT) Free T4 1.37 0.90 - 1.70 ng/dL Blood 02/15/2025 2:03 PM CDT 02/15/2025 3:36 PM CDT Narrative ANUPAM ALVES (HAHIRA) - 02/15/2025 6:31 PM CDT This test was reflexed from a TSH result. Ermias Paige MD LAB BLOOD ORDERABLES Fi nal Result Performing Organization Address [facility] Co de Phone Number ANUPAM ALVES (HAHIRA) [address] [facility] [place] [address] * Folate (02/15/2025 2:03 PM CDT) Pathologist [facility] Folic acid 8.3 >=5.0 ng/mL Comment:Slightly Hemolyzed S pecimen. Results may be affected. Blood 02/15/2025 2:03 PM CDT 02/15/2025 3:36 PM CDT Ermias Paige MD LAB BLOOD ORDERABLES Fi nal Result Performing Organization Address [facility] Co de Phone Number ANUPAM ALVES (HAHIRA) [address] [facility] [place] [address] * Vitamin B12 (02/15/2025 2:03 PM CDT) Vitamin B12 449 230 - 1,250 pg/mL Blood 02/15/2025 2:03 PM CDT 02/15/2025 3:36 PM CDT Ermias Paige MD LAB BLOOD ORDERABLES Fi nal Result [facility]) [facility] [place] [address] from Last 3 Months Insurance [facility] MEDICARE ADVANTAGE MEDICARE [facility] MEDICARE [facility] Address: [facility] [address] [place] [address] [facility] MEDICARE ADVANTAGE [facility] MEDICARE ADVANTAGE Advance Directives For more information, please contact: [phone] * Full Code (Latest Code Status on File) Date Activated Date Inactivated Comments 08/02/2021 9:42 AM 08/02/2021 5:28 PM Care Teams Kitchen Worker Relationship Specialty Start Date End Date Ermias Neff MD PCP - General 09/29/17 Doug Be MD [address] [facility] [address] [place] [address] Radiation Oncologist Radiation Oncology 10/06/18
--- OUTSIDE RECORDS SUMMARY | 2025-03-30 14:36 | XMS_ITS | Clinical Summary ---
Author Organization [facility] Address [address] [facility] [place] [address] Care Team Providers Care Clinical Research Nurse Coordinator Name Role Phone Ermias Neff MD Primary Care Provider [phone] Source Comments [facility],non-owned Affiliates and Associated Physician Practices is amultiple site organization consisting of ambulatory clinics and hospital sitesin [place], [place], [place] and [place]. This disclosure is being madepursuant to the Care Everywhere program and may not contain all information available regarding this patient. Last updated 18.[facility] Allergies Active Allergy Reactions Criticality Noted Date Comments Diclofenac Epolamine Unknown 10/06/2019 Erythromycin GI Discomfort 05/03/2011 Iohexol GI Discomfort 05/03/2011 Naproxen Swelling,Unknown Medium 2015 Sulfa Drugs Swelling Low 01/29/2013 Hives Medications * Be aware that medications may not be up to date on this document. Alwaysverify current medications with the patient. ALBUTEROL IN prn Active atorvastatin (LIPITOR) 10 MG tablet TAKE 1 TABLET BY MOUTH QD. TAKE WITH 20 MG FOR TOTAL OF 30 MG DAILY DOSE 0 10/14/2017 Active atorvastatin (LIPITOR) 20 MG tablet Take 20 mg by mouth once daily 0 10/14/2017 Active clopidogrel (PLAVIX) 75 MG tablet Take 75 mg by mouth once daily 0 11/04/2017 Active furosemide (LASIX) 20 MG tablet 1 08/13/2017 Active pantoprazole EC (PROTONIX) 40 MG tablet Take 40 mg by mouth once daily 01/01/2022 Active XIIDRA 5 % opthalmic solution 11/21/2021 Active levothyroxine (SYNTHROID) 125 MCG tablet Take 125 mcg by mouth once daily 03/06/2022 Active ALPRAZolam (XANAX) 0.25 MG tablet Take 1 tablet by mouth once daily as needed Active Active Problems Problem Noted Date Diagnosed Date Epiretinal membrane (ERM) of both eyes Diplopia 05/08/2022 Hypertropia of right eye 05/08/2022 Thyroid eye disease 05/08/2022 Benign essential hypertension 05/08/2022 Polymyalgia rheumatica 03/07/2021 Plasma cell disorder 08/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 Primary osteoarthritis of left knee 11/15/2017 Malignant neoplasm of breast 02/20/2016 Depression 04/20/2014 Atherosclerotic heart diseas e of [place] coronary artery without angina pectoris 08/06/2006 Overview (05/08/2022): CABG-09/04 Dr Reed @ [facility] SVG-LAD, SVG-DIAG 1, SVG-OM, Prev stents to lad, circ , rca in 08/05 Immunizations Immunization Administration Dates Next Due [facility] primary monoval ent 12+ yr 0.3mL Purple cap 10/31/2020,09/30/2020 FLU VACCINE QUAD IIV4 SPLIT 0.25 ML IM 10/14/2013 FLU VACCINE TRI IIV3 SPLIT P F IM (FLUVIRIN) 07/27/2014 INFLUENZA VACCINE 08/05/2018 INFLUENZA VACCINE, HIGH-DOSE , QUADR. 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 Pulse - - Temperature - - Respiratory Rate - - Oxygen Saturation - - Inhaled Oxygen Concentration - - Weight 100.2 kg (221 lb) 11/14/2017 4:15 PM 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 Height 152.4 cm (5') 11/14/2017 4:15 PM 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 Body Mass Index 43.16 11/14/2017 4:15 PM 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 Plan of Treatment Health Maintenance Due Date Last Done Comments BONE DENSITY TESTING 1945 DTAP/TDAP/TD VACCINES (1 - Tdap) 1962 ZOSTER VACCINE (1 of 2) 1993 PNEUMOCOCCAL VACCINE 50+ (2 of 2 - PCV20 or PCV21) 12/12/2016 12/13/2015 Respiratory Syncytial Virus (RSV) Vaccine Pt: or over 60 yrs (1 - 1-dose 75+ series) 2018 COVID-19 VACCINE ( season) 2024 07/13/2021, 01/03/2021, 12/13/2020, Additional history exists DEPRESSION SCREENING 09/30/2024 MEDICARE AWV CALENDAR YEAR 2024 INFLUENZA VACCINE (Season Ended) 2025 07/13/2021, 07/28/2020, 07/31/2019, Additional history exists HEPATITIS B VACCINE Aged Out No longe r eligible based on patient's age to complete this topic HIB VACCINE Aged Out No longer eligi ble based on patient's age to complete this topic HPV VACCINE Aged Out No longer eligi ble based on patient's age to complete this topic MENINGOCOCCAL (Group B) VACCINE SHARED DECISION-MAKING Aged Out No longer eligible based on patient's age to complete this topic MENINGOCOCCAL GROUPS A/C/Y/W VACCINE Aged Out No longer eligible based on patient's age to complete this topic Insurance MEDICARE [facility] [place] [address] [facility] MANAGED MEDICARE ADV [facility] MANAGED MEDICARE ADV Care Teams Clinical Research Nurse Coordinator Relationship Specialty Start Date End Date Ermias Neff MD PCP - General Internal Medicine 11/14/17
--- OUTSIDE RECORDS SUMMARY | 2025-03-30 14:36 | XMS_ITS | Referral Summary ---
Author Organization [place] [id number] [facility] Address [facility] [place] [address] Care Team Providers Care Tea And Spice Supervisor Name Role Phone Ermias Neff MD Primary Care Provider + [phone] Doug Be MD Unavailable Encounters Date Type Department Care Team Description 03/29/2025 Telephone [facility] [address] [place] [address] Lyudmila Villanueva RN 03/05/2025 4:29 PM CDT - 03/05/2025 11:59 PM CDT Hospital Encounter [facility] [address] [place] [address] Ermias Paige MD Memory impairment Discharge Disposition: Discharge to home or self care 02/24/2025 Results Follow-Up [facility] [address] [place] [address] [address] [phone] Ermias Paige MD Vitamin B12, Vitamin B6, Folate, Additional followed-up results: 2 02/15/2025 2:00 PM CDT Lab [address] Memory impairment 02/15/2025 1:00 PM CDT Office Visit [facility] [address] [place] [address] [address] [phone] Ermias Paige MD Memory impairment (Primary Dx); Parkinson's disease without dyskinesia or fluctuating manifestations (HCC) from Last 3 Months Allergies Active Allergy Reactions Criticality Noted Date [...] cT1, cN0, cM0, G1, ER: Not assessed, OR: Not assessed, HER2: Not assessed - Signed by Love Aguilera, PhD on 10/06/2018 Pathologic stage from 11/02/2005: pT1b, pN0(sn), cM0, G1, ER: Positive, OR: Positive, HER2: Not assessed - Signed by Love Aguilera, PhD on 10/06/2018 Social History Tobacco Use Types Packs/Day Years [...] on file Legal 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 Results were compared to 10th and 90th percentiles of healthy age-/gender-matched population. Graphs were sent to Chalkboard and Fliptop PACS. The protocol specifically includes FLAIR to [...] hydrocephalus. Normal flow voids seen within the [place]. Deep venous sinuses are patent. The paranasal sinuses are normal. The visualized portions of the mastoids are unremarkable. Bilateral cataract surgery. Normal flow voids are demonstrated in the carotid arteries and basilar artery. QUANTITATIVE ASSESSMENT: Assessment of hippocampal volumes: Quantitative assessment was performed using Syngo Via and is reported. Hippocampal volume: Left side: [...] images of the brain were postprocessed on Wrapp to generate segmented brain volumes using commercial software. Results were compared to 10th and 90th percentiles of healthy age-/gender-matched population. Graphs were sent to Chalkboard and Fliptop PACS. The protocol specifically includes FLAIR to [...] hydrocephalus. Normal flow voids seen within the [place]. Deep venous sinuses are patent. The paranasal sinuses are normal. The visualized portions of the mastoids are unremarkable. Bilateral cataract surgery. Normal flow voids are demonstrated in the carotid arteries and basilar artery. QUANTITATIVE ASSESSMENT: Assessment of hippocampal volumes: Quantitative assessment was performed using Syngo Via and is reported. Hippocampal volume: Left side: [...] by: Will Arredondo M.D. Ermias Paige MD [facility] MRI PROCEDURES Edit ed Result - Final * (ABNORMAL) Vitamin B6 (02/15/2025 2:06 PM CDT) Pyridoxal phosphate (Vit B6) 2(L) 5 - 50 mcg/L [place] ref Lab Comment: ADDITIONAL INFORMATION This test was developed and its performance characteristics determined by [facility] in a manner consistent with CLIA requirements. This test has not been cleared or approved by the U.S. Food and Drug Administration. Test Performed by: [facility] - [address] [address] [place] Laborer: Elise Acevedo Ph.D.; CLIA# [id number] Blood 02/15/2025 2:06 PM CDT 02/15/2025 3:32 PM CDT Ermias Paige MD LAB BLOOD ORDERABLES Fi nal Result ANUPAM ALVES ([place]) 1 [facility] [place] [employer] [address] [place] ref Lab * (ABNORMAL) Thyroid Function [place] (02/15/2025 2:03 PM CDT) TSH 5.35(H) 0.30 - 4.20 mcIUnit/mL Blood 02/15/2025 2:03 PM CDT 02/15/2025 3:36 PM CDT us Ermias Paige MD LAB BLOOD ORDERABLES Fi nal Result Performing Organization Address [facility] Co de Phone Number ANUPAM ALVES ([place]) 1 [facility] [employer] [address] * T4, free (02/15/2025 2:03 PM CDT) Free T4 1.37 0.90 - 1.70 ng/dL Blood 02/15/2025 2:03 PM CDT 02/15/2025 3:36 PM CDT Narrative ANUPAM ALVES ([place]) - 02/15/2025 6:31 PM CDT This test was reflexed from a TSH result. us Ermias Paige MD LAB BLOOD ORDERABLES Fi nal Result Performing Organization Address City/[facility]/ZIP Co de Phone Number ANUPAM ALVES ([place]) 1 [facility] [employer] [place] [address] * Folate (02/15/2025 2:03 PM CDT) Folic acid 8.3 >=5.0 ng/mL Comment:Slightly Hemolyzed S pecimen. Results may be affected. Blood 02/15/2025 2:03 PM CDT 02/15/2025 3:36 PM CDT us Ermias Paige MD LAB BLOOD ORDERABLES Fi nal Result [facility] ([place]) 1 [facility] [employer] [place] [address] * Vitamin B12 (02/15/2025 2:03 PM CDT) Pathologist [facility] [place] Vitamin B12 449 230 - 1,250 pg/mL Blood 02/15/2025 2:03 PM CDT 02/15/2025 3:36 PM CDT Ermias Paige MD LAB BLOOD ORDERABLES Fi nal Result [facility] ([place]) [address] [facility] [employer] [place] [address] from Last 3 Months Insurance [facility] MEDIC[facility] ADVANTAGE [facility] [employer] Address: [facility] [place] [address] MEDICARE [facility] MEDICARE ADVANTAGE [facility] ADVANTAGE Advance Directives For more information, please contact: [phone] * Full Code (Latest Code Status on File) Date Activated Date Inactivated Comments 08/02/2021 9:42 AM 08/02/2021 5:28 PM Care Teams Tea And Spice Supervisor Relationship Specialty Start Date End Date Ermias Neff MD PCP - General 09/29/17 Doug Be MD [address] [facility] # LL LL [address] [place] [address] Radiation Oncologist Radiation Oncology 10/06/18
--- OUTSIDE RECORDS SUMMARY | 2025-03-30 14:36 | XMS_ITS | Continuity of Care Document ---
Author Organization [facility] [place] Address [address] [place] [address] [place] [address] Phone Care Team Providers Care Resource Protection Specialist Name Role Phone Willie Boyer Unavailable Unavailable [...] Copied on Encounter Office/outpati ent Visit, [facility], [address], [place], [place], [id number], [place] tel:[phone] [facility] No Information Jun- 8-200 9 Merlin Tapia. [address] , [address], [place], [address], [place]. tel:[phone] Referring Provider: Morgan Tse, [address] [place], [address]. tel:[phone] [facility], [address], [place], [place], [id number], [place] tel:[phone] SEC [facility] No Information Jun-1 5-200 9 Patricia Mora. [address] [place], [address], [place]. tel:[phone] Referring Provider: Morgan Tse, [address] [place], [address]. tel:[phone] [facility], [address], [place], [place], [address], [place] tel:[phone] [facility] No Information Apr-1 3-200 9 Patricia Mora. [address] [place], [address], [place]. tel:[phone] [facility], [address], [place], [place], [id number], [place] tel:[phone] [facility] No Information 1 6-200 9 Patricia Mora. [address] [place], [address], [place]. tel:[phone] Referring Provider: Morgan Tse, [address] [place], [address]. tel:[phone] [facility], [address], [place], [place], [id number], [place] tel:[phone] [facility] No Information Mar-0 2-200 9 Patricia Mora. [address] [place], [address], [place]. tel:[phone] [facility], [address], [place], [place], [address], [place] tel:[phone] [facility] No Information Alfredo-2 5-200 9 Patricia Mora. [address] [place], [address], [place]. tel:[phone] Referring Provider: Morgan Tse, [address] [place], [address]. tel:[phone] [facility], [address] [facility] [place] [address], [place], [place], [id number], [place] tel:[phone] SEC [facility] [place] No Information 9 Patricia Mora. [address] [place], [address], [place]. tel:[phone] Referring Provider: Vadim Rogers OD Bhupendra, [address] [place] [address] [address], [place], [place], [facility]. tel:[phone] [facility], [id number] [place] [address] [address], [place], [place], [address], [place] tel:[phone] [facility] No Information 0 8-200 9 Rogers OD Vadim. [facility] , [address], [place], [address], [place]. tel:[phone] [facility], [address], [place], [place], [id number], [place] tel:[phone] SEC [facility] [place] No Information 9-200 8 Randykum Stuart. [address] [facility], [place], [place], [address], [place]. tel:[phone] [facility], [address], [place], [place], [id number], [place] tel:[phone] [facility] No Information 3-200 7 Shannan Davidson. [address], [address], [place], [place], [address], [place]. tel:[phone] Family History Family Member Type Diagnosis Age At Onset No Information Payers Payer name Insurance type Covered constitution party ID Authoriza tion(s) Medicare [facility] [id number] [facility] Custom Care [id number] Social History Type Description Quantity Date Captured [...]
--- OUTSIDE RECORDS SUMMARY | 2025-03-30 14:36 | XMS_ITS | Data Portability ---
Author Organization [place] - [facility], Main Office Address [address] [place] [address] Care Team Providers Care Medical Coder Name Role Phone CASEY NEFF Primary Care Provider Assessment Encounter Date Assessment Date Assessment LastModified by Organization Details LastModified Time 02/14/2023 02/14/2023 Medical problems appear to be stable reviewed her last blood work we will continue with current therapy follow-up with me in 4 months all questions answered. [email or web address] Not available 02/23/2023 16:47:04 06/13/2023 06/13/2023 Will continue current therapy and follow-up in 4 months [email or web address] Not available 06/16/2023 15:44:29 10/22/2023 10/22/2023 Continue current therapy diagnosis in assessment and plan have been discussed follow-up 3-4 months. [email or web address] Not available 10/25/2023 21:18:27 Plan of Treatment Reminders Order Date Submit Date Provider Last Modified By Organization Details Last Modified Time Details Appointments None recorded. Lab lipid panel, serum 2022 023 [facility] ([facility]), [address] [place], [address], 4 19:27:46 HbA1c (hemoglobin A1c), blood [address] ([facility]uling), [address] [place], [address], 16:27:56 T3, free, serum or plasma 2022 023 [facility] ([facility]), [address] [place], [address], 4 18:44:25 TSH + free T4, serum [address] ([facility]uling), [address] [place], [address], 3 16:27:56 CMP, serum or plasma 2022 023 [facility] ([facility]), [address] [place], [address], 3 16:41:36 Referral None recorded. Procedures None recorded. Surgeries None recorded. Imaging None recorded. Medication Orders Xiidra 5 % eye drops in a dropperette 2022 023 [facility] #[id number], [address], [id number], 3 16:36:48 atorvastati n 10 mg tablet 2022 023 [facility] #[id number], [address], [id number], 3 22:09:32 atorvastati n 20 mg tablet 2022 023 [facility] #[id number], [address], [id number], 3 22:09:30 levothyroxi ne 125 mcg tablet 2022 023 [facility] #[id number], [address], [id number], 3 22:09:30 Patient TargetsNo targets recorded. Patient InstructionsNo instructions recorded. Reason for Referral None Reported. Results Created Date Observation Date Name Description Value Unit Range Abnormal Flag Note LastModifiedBy Organization Detail LastModifiedTime 10/09/1910/09/2022 HEMOG LOBIN A1C HA1C 5.9 % 4.0-6. 0 Diabe rey Rehanae real Crite doron: <5.7% Consi stent with absen ce of diabe rey 5.7-6 .4% Consi stent with incre ased risk for diabe rey (pred iabet es) >OR=6 .5% Consi stent with diabe rey REFER ENCE: Diabe rey Care 2016, 39(Rodriguez ppl.1 ):s13 -s22 Not Available [facility] (Lab) [address] [place], [address], 10/09/2022 21:07:22 10/09/19 23 10/09/2022 TSH thyroid-stim ulating hormone 5.840 uIU/m L 0.465- 4.680 high Not Available [facility] (Lab) [address] [place], [address], 10/09/2022 17:28:04 10/09/19 23 10/09/2022 T3 FREE free T3 2.5 pg/mL 2.77-5 .27 low Not Available [facility] (Lab) [address] [place], [address], 10/09/2022 17:14:44 10/09/19 23 10/09/2022 T4 FREE free T4 1.53 NG/dL 0.78-2 .19 Not Available [facility] (Lab) [address] [place], [address], 10/09/2022 17:14:37 10/09/19 23 10/09/2022 LIPID PANEL cholesterol 171 mg/dL 140-19 9 NIH FRANCOIS NSUS RECOM MENDA TION FOR GWYN STERO L: ADULT CHILD LOW RISK: <200 <170 BORDE RLINE : <200- 239 ----- HIGH RISK: >240 >200 Not Available [facility] (Lab) [address] [place], [address], 10/09/2022 17:06:02 10/09/19 23 10/09/2022 LIPID PANEL triglyceride s 140 mg/dL 0-150 NIH FRANCOIS NSUS REPOR T RECOM MENDA TION FOR TRIGL YCERI BLANCHE: ADULT CHILD LOW RISK: <150 ----- BODER LINE: 150-1 99 ----- HIGH RISK: >200 ----- Not Available [facility] (Lab) [address] [place], [address], 10/09/2022 17:06:02 10/09/19 23 10/09/2022 LIPID PANEL HDL cholesterol 69 mg/dL 40- Not Available [facility] (Lab) [address] [place], [address], 10/09/2022 17:06:02 10/09/19 23 10/09/2022 LIPID PANEL LDL cholesterol, calculated 74 mg/dL 0-130 NIH FRANCOIS NSUS REPOR T RECOM MENDA TIONS FOR LDL: ADULT CHILD LOW RISK <130 <110 (OPTI MAL LDL) <100 ----- BORDE RLINE : 130-1 59 ----- HIGH RISK: >160 >130 A TRIGL YCERI DE RESUL T >400 INVAL IDATE S THE CALCU LATIO N FOR LDL FRACT IONAT ION - THE LDL RESUL T WILL NOT BE REPOR CARLOS MANUEL. Not Available [facility] (Lab) [address] [place], [address], 10/09/2022 17:06:02 10/09/19 23 10/09/2022 COMPR EHENS DANITZA METAB OLIC PANEL sodium 141 mmol/ L 137-14 5 Not Available [facility] (Lab) [address] [place], [address], 10/09/2022 17:06:00 10/09/19 23 10/09/2022 COMPR EHENS DANITZA METAB OLIC PANEL potassium 4.4 mmol/ L 3.5-5. 1 Not Available [facility] (Lab) [address] [place], [address], 10/09/2022 17:06:00 10/09/19 23 10/09/2022 COMPR EHENS DANITZA METAB OLIC PANEL chloride 106 mmol/ L 98-107 Not Available [facility] (Lab) [address] [facility] [place], [address], 10/09/2022 17:06:00 10/09/19 23 10/09/2022 COMPR EHENS DANITZA METAB OLIC PANEL carbon dioxide 23 mmol/ L 22-30 Not Available [facility] (Lab) [address] [place], [address], 10/09/2022 17:06:00 10/09/19 23 10/09/2022 COMPR EHENS DANITZA METAB OLIC PANEL anion gap 16.4 mmol/ L 14-22 Not Available [facility] (Lab) [address] [place], [address], 10/09/2022 17:06:00 10/09/19 23 10/09/2022 COMPR EHENS DANITZA METAB OLIC PANEL glucose 105 mg/dL 70-99 high Not Available [facility] (Lab) [address] [place], [address], 10/09/2022 17:06:00 10/09/19 23 10/09/2022 COMPR EHENS DANITZA METAB OLIC PANEL BUN 16 mg/dL 8-19 Not Available [facility] (Lab) [address] [place], [address], 10/09/2022 17:06:00 10/09/19 23 10/09/2022 COMPR EHENS DANITZA METAB OLIC PANEL creatinine 0.78 mg/dL 0.66-1 .25 Not Available [facility] (Lab) [address] [place], [address], 10/09/2022 17:06:00 10/09/19 23 10/09/2022 COMPR EHENS DANITZA METAB OLIC PANEL GFR >60 Refer ence Range : [place] GFR Healt hy Adult : >60 mL/mi n/1.7 3 m2 Chron ic Kidne y Disea se: 15-60 mL/mi n/1.7 3 m2 Kidne y Failu re: <15/m L/min /1.73 m2 www.[email or web address]. nih.g ov The MDRD study equat ion has not been valid ated in child darlene <18 years of age; pregn ant women ; the elder ly >85 years of age; or in some racia l or ethni c subgr oups, such as Hispa nics. Outsi de the valid ated trace eters , estim ated GFR is less accur ate, requi ring clini mercedes judgm ent on a case- by-ca se basis . Clini mercedes inter preta tion for other races and ages must be made by the clini emerson. The MDRD study equat ion has not been valid ated for the evalu ation of serum creat inine relat ed to nutri coleen l statu s or medic ation usage . For perso ns <18 years of age, a pedia tric GFR calcu lator is avail able on the [facility] websi te: [email or web address] :[email or web address] [email or web address] ashlyn/pr ofess ional s/kdo qi/gf r_cal culat or Not Available [facility] (Lab) [address] [place], [address], 10/09/2022 17:06:00 10/09/19 23 10/09/2022 COMPR EHENS DANITZA METAB OLIC PANEL alkaline phosphatase 112 U/L 38-126 Not Available [facility] (Lab) [address] [place], [address], 10/09/2022 17:06:00 10/09/19 23 10/09/2022 COMPR EHENS DANITZA METAB OLIC PANEL alanine aminotransfe rase 27 U/L 0-35 Not Available [facility] (Lab) [address] [place], [address], 10/09/2022 17:06:00 10/09/19 23 10/09/2022 COMPR EHENS DANITZA METAB OLIC PANEL aspartate aminotransfe rase 29 U/L 15-37 Not Available [facility] (Lab) [address] [place], [address], 10/09/2022 17:06:00 10/09/19 23 10/09/2022 COMPR EHENS DANITZA METAB OLIC PANEL bilirubin, total 0.80 mg/dL 0.20-1 .30 Not Available [facility] (Lab) [address] [place], [address], 10/09/2022 17:06:00 10/09/19 23 10/09/2022 COMPR EHENS DANITZA METAB OLIC PANEL calcium 9.4 mg/dL 8.4-10 .2 Not Available [facility] (Lab) [address] [place], [address], 10/09/2022 17:06:00 10/09/19 23 10/09/2022 COMPR EHENS DANITZA METAB OLIC PANEL total protein 7.1 g/dL 6.3-8. 2 Not Available [facility] (Lab) [address] [place], [address], 10/09/2022 17:06:00 10/09/19 23 10/09/2022 COMPR EHENS DANITZA METAB OLIC PANEL albumin 4.2 g/dL 3.0-4. 4 Not Available [facility] (Lab) [address] [place], [address], 10/09/2022 17:06:00 10/09/19 23 10/09/2022 COMPR EHENS DANITZA METAB OLIC PANEL globulin 2.9 g/dL 2.6-4. 2 Not Available [facility] (Lab) [address] [place], [address], 10/09/2022 17:06:00 10/09/19 23 10/09/2022 COMPR EHENS DANITZA METAB OLIC PANEL A/G ratio 1.4 ratio 1.0-2. 0 Not Available [facility] (Lab) [address] [place], [address], 10/09/2022 17:06:00 10/09/19 23 10/09/2022 MICRO ALBUM N RNDM W/CRE AT RATIO ur creat 114.03 mg/dL REFER ENCE RANGE NOT ESTAB LISHE D FOR RANDO M URINE CREAT ININE Not Available [facility] (Lab) [address] [place], [address], 10/09/2022 16:27:43 10/09/1910/09/2022 MICRO ALBUM N RNDM W/CRE AT RATIO microalbumin , urine 15.4 mg/L 0.0-16 .6 Not Available [facility] (Lab) [address] [place], [address], 10/09/2022 16:27:43 10/09/19 23 10/09/2022 MICRO ALBUM N RNDM W/CRE AT RATIO microalbumin /creatinine ratio 14 mcg/m g 0-29 THE AMERI CAN DIABE REY ASSOC IATIO N DEFIN ES ABNOR MALIT IES IN ALBUM IN EXCRE TION FOLLO WS: CATEG ORY RESUL T (MCG/ MG CREAT ININE ) MERCY L <30 MICRO ALBUM INURI A 30-29 9 CLINI MERCEDES ALBUM INURI A > OR = 300 THE ADA RECOM MENDS THAT 2 OF 2 SPECI MENS COLLE CTED WITHI N A 3- TO 6-MON TH PERIO D BE ABNOR MAL BEFOR E CONSI MIGUEL ÁNGEL G A PATIE NT TO HAVE CROSS ED ONE OF THESE DIAGN OSTIC THRES HOLDS . REFER ENCE: DIABE REY CARE, VOL. 26: S94-S , 2002 Not Available [facility] (Lab) [address] [place], [address], 10/09/2022 16:27:43 02/20/20 23 02/19/2023 MICRO ALBUM N RNDM W/CRE AT RATIO ur creat 160.04 mg/dL REFER ENCE RANGE NOT ESTAB LISHE D FOR RANDO M URINE CREAT ININE Not Available [facility] (Lab) [address] [place], [address], 02/19/2023 14:12:31 02/20/20 23 02/19/2023 MICRO ALBUM N RNDM W/CRE AT RATIO microalbumin , urine 22.8 mg/L 0.0-16 .6 high Not Available [facility] (Lab) [address] [place], [address], 02/19/2023 14:12:31 02/20/20 23 02/19/2023 MICRO ALBUM N RNDM W/CRE AT RATIO microalbumin /creatinine ratio 14 mcg/m g 0-29 THE AMERI CAN DIABE REY ASSOC IATIO N DEFIN ES ABNOR MALIT IES IN ALBUM IN EXCRE TION FOLLO WS: CATEG ORY RESUL T (MCG/ MG CREAT ININE ) MERCY L <30 MICRO ALBUM INURI A 30-29 9 CLINI MERCEDES ALBUM INURI A > OR = 300 THE ADA RECOM MENDS THAT 2 OF 2 SPECI MENS COLLE CTED WITHI N A 3- TO 6-MON TH PERIO D BE ABNOR MAL BEFOR E CONSI MIGUEL ÁNGEL G A PATIE NT TO HAVE CROSS ED ONE OF THESE DIAGN OSTIC THRES HOLDS . REFER ENCE: DIABE REY CARE, VOL. 26: S94-S , 2002 Not Available [facility] (Lab) [address] [place], [address], 02/19/2023 14:12:31 02/20/20 23 02/19/2023 HEMOG LOBIN A1C HA1C 5.8 % 4.0-6. 0 Diabe rey Scree real Crite doron: <5.7% Consi stent with absen ce of diabe rey 5.7-6 .4% Consi stent with incre ased risk for diabe rey (pred iabet es) >OR=6 .5% Consi stent with diabe rey REFER ENCE: Diabe rey Care 2015, 39(Rodriguez ppl.1 ):s13 -s22 Not Available [facility] (Lab) [address] [place], [address], 02/19/2023 14:27:33 02/20/20 23 02/19/2023 COMPR EHENS DANITZA METAB OLIC PANEL sodium 142 mmol/ L 137-14 5 Not Available [facility] (Lab) [address] [place], [address], 02/19/2023 15:45:17 02/20/20 23 02/19/2023 COMPR EHENS DANITZA METAB OLIC PANEL potassium 4.3 mmol/ L 3.5-5. 1 Not Available [facility] (Lab) [address] [place], [address], 02/19/2023 15:45:17 02/20/20 23 02/19/2023 COMPR EHENS DANITZA METAB OLIC PANEL chloride 105 mmol/ L 98-107 Not Available [facility] (Lab) [address] [place], [address], 02/19/2023 15:45:17 02/20/20 23 02/19/2023 COMPR EHENS DANITZA METAB OLIC PANEL carbon dioxide 27 mmol/ L 22-30 Not Available [facility] (Lab) [address] [place], [address], 02/19/2023 15:45:17 02/20/20 23 02/19/2023 COMPR EHENS DANITZA METAB OLIC PANEL anion gap 14.3 mmol/ L 14-22 Not Available [facility] (Lab) [address] [place], [address], 02/19/2023 15:45:17 02/20/20 23 02/19/2023 COMPR EHENS DANITZA METAB OLIC PANEL glucose 103 mg/dL 70-99 high Not Available [facility] (Lab) [address] [place], [address], 02/19/2023 15:45:17 02/20/20 23 02/19/2023 COMPR EHENS DANITZA METAB OLIC PANEL BUN 15 mg/dL 8-19 Not Available [facility] (Lab) [address] [place], [address], 02/19/2023 15:45:17 02/20/20 23 02/19/2023 COMPR EHENS DANITZA METAB OLIC PANEL creatinine 0.84 mg/dL 0.66-1 .25 Not Available [facility] (Lab) [address] [place], [address], 02/19/2023 15:45:17 02/20/20 23 02/19/2023 COMPR EHENS DANITZA METAB OLIC PANEL GFR >60 Refer ence Range : [place] GFR Healt hy Adult : >60 mL/mi n/1.7 3 m2 Chron ic Kidne y Disea se: 15-60 mL/mi n/1.7 3 m2 Kidne y Failu re: <15/m L/min /1.73 m2 www.n iddk. nih.g ov The MDRD study equat ion has not been valid ated in child darlene <18 years of age; pregn ant women ; the elder ly >85 years of age; or in some racia l or ethni c subgr oups, such as ks nics. Outsi de the valid ated trace eters , estim ated GFR is less accur ate, requi ring clini mercedes judgm ent on a case- by-ca se basis . Clini mercedes inter preta tion for other races and ages must be made by the clini emerson. The MDRD study equat ion has not been valid ated for the evalu ation of serum creat inine relat ed to nutri coleen l statu s or medic ation usage . For perso ns <18 years of age, a pedia tric GFR calcu lator is avail able on the [facility] websi te: [email or web address] :[email or web address] [email or web address].o rg/pr ofess ional s/kdo qi/gf r_cal culat or Not Available [facility] (Lab) [address] [place], [address], 02/19/2023 15:45:17 02/20/20 23 02/19/2023 COMPR EHENS DANITZA METAB OLIC PANEL alkaline phosphatase 102 U/L 38-126 Not Available [facility] (Lab) [address] [facility] [place], [address], 02/19/2023 15:45:17 02/20/20 23 02/19/2023 COMPR EHENS DANITZA METAB OLIC PANEL alanine aminotransfe rase 26 U/L 0-35 Not Available [facility] (Lab) [address] [place], [address], 02/19/2023 15:45:17 02/20/20 23 02/19/2023 COMPR EHENS DANITZA METAB OLIC PANEL aspartate aminotransfe rase 31 U/L 15-37 Not Available [facility] (Lab) [address] [place], [address], 02/19/2023 15:45:17 02/20/20 23 02/19/2023 COMPR EHENS DANITZA METAB OLIC PANEL bilirubin, total 0.70 mg/dL 0.20-1 .30 Not Available [facility] (Lab) [address] [place], [address], 02/19/2023 15:45:17 02/20/20 23 02/19/2023 COMPR EHENS DANITZA METAB OLIC PANEL calcium 9.1 mg/dL 8.4-10 .2 Not Available [facility] (Lab) [address] [place], [address], 02/19/2023 15:45:17 02/20/20 23 02/19/2023 COMPR EHENS DANITZA METAB OLIC PANEL total protein 6.6 g/dL 6.3-8. 2 Not Available [facility] (Lab) [address] [place], [address], 02/19/2023 15:45:17 02/20/20 23 02/19/2023 COMPR EHENS DANITZA METAB OLIC PANEL albumin 3.8 g/dL 3.0-4. 4 Not Available [facility] (Lab) [address] [place], [address], 02/19/2023 15:45:17 02/20/20 23 02/19/2023 COMPR EHENS DANITZA METAB OLIC PANEL globulin 2.8 g/dL 2.6-4. 2 Not Available [facility] (Lab) [address] [place], [address], 02/19/2023 15:45:17 02/20/20 23 02/19/2023 COMPR EHENS DANITZA METAB OLIC PANEL A/G ratio 1.4 ratio 1.0-2. 0 Not Available [facility] (Lab) [address] [place], [address], 02/19/2023 15:45:17 02/20/20 23 02/19/2023 LIPID PANEL cholesterol 177 mg/dL 140-19 9 NIH FRANCOIS NSUS RECOM MENDA TION FOR GWYN STERO L: ADULT CHILD LOW RISK: <200 <170 BORDE RLINE : <200- 239 ----- HIGH RISK: >240 >200 Not Available [facility] (Lab) [address] [place], [address], 02/19/2023 15:45:19 02/20/2002/19/2023 LIPID PANEL triglyceride s 144 mg/dL 0-150 NIH FRANCOIS NSUS REPOR T RECOM MENDA TION FOR TRIGL YCERI BLANCHE: ADULT CHILD LOW RISK: <150 ----- BODER LINE: 150-1 99 ----- HIGH RISK: >200 ----- Not Available [facility] (Lab) [address] [place], [address], 02/19/2023 15:45:19 02/20/2019 0202/19/2023 LIPID PANEL HDL cholesterol 66 mg/dL 40- Not Available [facility] (Lab) [address] [place], [address], 02/19/2023 15:45:19 02/20/2002/19/2023 LIPID PANEL LDL cholesterol, calculated 82 mg/dL 0-130 NIH FRANCOIS NSUS REPOR T RECOM MENDA TIONS FOR LDL: ADULT CHILD LOW RISK <130 <110 (OPTI MAL LDL) <100 ----- BORDE RLINE : 130-1 59 ----- HIGH RISK: >160 >130 A TRIGL YCERI DE RESUL T >400 INVAL IDATE S THE CALCU LATIO N FOR LDL FRACT IONAT ION - THE LDL RESUL T WILL NOT BE REPOR CARLOS MANUEL. Not Available [facility] (Lab) [address] [place], [address], 02/19/2023 15:45:19 02/20/20 23 02/19/2023 T3 FREE free T3 2.9 pg/mL 2.77-5 .27 Not Available [facility] (Lab) [address] [place], [address], 02/19/2023 18:39:41 02/20/2002/19/2023 T4 FREE free T4 1.50 NG/dL 0.78-2 .19 Not Available [facility] (Lab) [address] [place], [address], 02/19/2023 18:39:45 02/20/2002/19/2023 TSH thyroid-stim ulating hormone 5.770 uIU/m L 0.465- 4.680 high Not Available [facility] (Lab) [address] [place], [address], 02/19/2023 18:43:15 10/22/19 24 10/22/2023 CBC W/O DIFFE RENTI AL white blood cells 8.3 x10'3 /uL 4.2-10 .8 Not Available [facility] (Lab) [address] [place], [address], 10/22/2023 19:21:47 10/22/19 24 10/22/2023 CBC W/O DIFFE RENTI AL red blood cells 5.33 x10'6 /uL 3.80-5 .20 high Not Available [facility] (Lab) [address] [place], [address], 10/22/2023 19:21:47 10/22/19 24 10/22/2023 CBC W/O DIFFE RENTI AL hemoglobin 15.4 g/dL 12.0-1 5.6 Not Available [facility] (Lab) [address] [place], [address], 10/22/2023 19:21:47 10/22/19 24 10/22/2023 CBC W/O DIFFE RENTI AL hematocrit 48.8 % 35.7-4 5.7 high Not Available [facility] (Lab) [address] [place], [address], 10/22/2023 19:21:47 10/22/19 24 10/22/2023 CBC W/O DIFFE RENTI AL mean red cell volume 91.6 fL 82.0-9 9.0 Not Available [facility] (Lab) [address] [place], [address], 10/22/2023 19:21:47 10/22/19 24 10/22/2023 CBC W/O DIFFE RENTI AL mean red cell hemoglobin 28.9 pg 27.0-3 3.0 Not Available [facility] (Lab) [address] [place], [address], 10/22/2023 19:21:47 10/22/19 24 10/22/2023 CBC W/O DIFFE RENTI AL mean RBC HGB concentratio n 31.6 g/dL 31.0-3 6.0 Not Available [facility] (Lab) [address] [place], [address], 10/22/2023 19:21:47 10/22/19 24 10/22/2023 CBC W/O DIFFE RENTI AL red cell distribution width 15.3 % 11.8-1 5.5 Not Available [facility] (Lab) [address] [place], [address], 10/22/2023 19:21:47 10/22/19 24 10/22/2023 CBC W/O DIFFE RENTI AL platelets 232 x10'3 /uL 150-40 0 Not Available [facility] (Lab) [address] [place], [address], 10/22/2023 19:21:47 10/22/19 24 10/22/2023 CBC W/O DIFFE RENTI AL mean platelet volume 11.1 fL 9.0-12 .4 Not Available [facility] (Lab) [address] [place], [address], 10/22/2023 19:21:47 10/22/19 24 10/22/2023 COMPR EHENS DANITZA METAB OLIC PANEL sodium 141 mmol/ L 137-14 5 Not Available [facility] (Lab) [address] [place], [address], 10/22/2023 19:27:42 10/22/19 24 10/22/2023 COMPR EHENS DANITZA METAB OLIC PANEL potassium 4.0 mmol/ L 3.5-5. 1 Not Available [facility] (Lab) [address] [place], [address], 10/22/2023 19:27:42 10/22/19 24 10/22/2023 COMPR EHENS DANITZA METAB OLIC PANEL chloride 105 mmol/ L 98-107 Not Available [facility] (Lab) [address] [place], [address], 10/22/2023 19:27:42 10/22/19 24 10/22/2023 COMPR EHENS DANITZA METAB OLIC PANEL carbon dioxide 29 mmol/ L 22-30 Not Available [facility] (Lab) [address] [place], [address], 10/22/2023 19:27:42 10/22/19 24 10/22/2023 COMPR EHENS DANITZA METAB OLIC PANEL anion gap 11.0 mmol/ L 14-22 low Not Available [facility] (Lab) [address] [place], [address], 10/22/2023 19:27:42 10/22/19 24 10/22/2023 COMPR EHENS DANITZA METAB OLIC PANEL glucose 101 mg/dL 70-99 high Not Available [facility] (Lab) [address] [place], [address], 10/22/2023 19:27:42 10/22/19 24 10/22/2023 COMPR EHENS DANITZA METAB OLIC PANEL BUN 15 mg/dL 8-19 Not Available [facility] (Lab) [address] [place], [address], 10/22/2023 19:27:42 10/22/19 24 10/22/2023 COMPR EHENS DANITZA METAB OLIC PANEL creatinine 0.80 mg/dL 0.66-1 .25 Not Available [facility] (Lab) [address] [place], [address], 10/22/2023 19:27:42 10/22/19 24 10/22/2023 COMPR EHENS DANITZA METAB OLIC PANEL GFR >60 Refer ence Range : [place] GFR Healt hy Adult : >60 mL/mi n/1.7 3 m2 Chron ic Kidne y Disea se: 15-60 mL/mi n/1.7 3 m2 Kidne y Failu re: <15/m L/min /1.73 m2 www.[email or web address] iddk. nih.g ov The MDRD study equat ion has not been valid ated in child darlene <18 years of age; pregn ant women ; the elder ly >85 years of age; or in some racia l or ethni c subgr oups, such as Hispa nics. Outsi de the valid ated trace eters , estim ated GFR is less accur ate, requi ring clini mercedes judgm ent on a case- by-ca se basis . Clini mercedes inter preta tion for other races and ages must be made by the clini emerson. The MDRD study equat ion has not been valid ated for the evalu ation of serum creat inine relat ed to nutri coleen l statu s or medic ation usage . For perso ns <18 years of age, a pedia tric GFR calcu lator is avail able on the [facility] websi te: [email or web address] [email or web address] [email or web address] r_[email or web address] culat or Not Available [facility] (Lab) [address] [place], [address], 10/22/2023 19:27:42 10/22/19 24 10/22/2023 COMPR EHENS DANITZA METAB OLIC PANEL alkaline phosphatase 111 U/L 38-126 Not Available [facility] (Lab) [address] [place], [address], 10/22/2023 19:27:42 10/22/19 24 10/22/2023 COMPR EHENS DANITZA METAB OLIC PANEL alanine aminotransfe rase 29 U/L 0-35 Not Available [facility] (Lab) [address] [place], [address], 10/22/2023 19:27:42 10/22/19 24 10/22/2023 COMPR EHENS DANITZA METAB OLIC PANEL aspartate aminotransfe rase 32 U/L 15-37 Not Available [facility] (Lab) [address] [place], [address], 10/22/2023 19:27:42 10/22/19 24 10/22/2023 COMPR EHENS DANITZA METAB OLIC PANEL bilirubin, total 0.40 mg/dL 0.20-1 .30 Not Available [facility] (Lab) [address] [place], [address], 10/22/2023 19:27:42 10/22/19 24 10/22/2023 COMPR EHENS DANITZA METAB OLIC PANEL calcium 9.5 mg/dL 8.4-10 .2 Not Available [facility] (Lab) [address] [place], [address], 10/22/2023 19:27:42 10/22/19 24 10/22/2023 COMPR EHENS DANITZA METAB OLIC PANEL total protein 7.2 g/dL 6.3-8. 2 Not Available [facility] (Lab) [address] [place], [address], 10/22/2023 19:27:42 10/22/19 24 10/22/2023 COMPR EHENS DANITZA METAB OLIC PANEL albumin 4.1 g/dL 3.0-4. 4 Not Available [facility] (Lab) [address] [place], [address], 10/22/2023 19:27:42 10/22/19 24 10/22/2023 COMPR EHENS DANITZA METAB OLIC PANEL globulin 3.1 g/dL 2.6-4. 2 Not Available [facility] (Lab) [address] [place], [address], 10/22/2023 19:27:42 10/22/19 24 10/22/2023 COMPR EHENS DANITZA METAB OLIC PANEL A/G ratio 1.3 ratio 1.0-2. 0 Not Available [facility] (Lab) [address] [place], [address], 10/22/2023 19:27:42 10/22/19 24 10/22/2023 LIPID PANEL cholesterol 169 mg/dL 140-19 9 NIH FRANCOIS NSUS RECOM MENDA TION FOR GWYN STERO L: ADULT CHILD LOW RISK: <200 <170 BORDE RLINE : <200- 239 ----- HIGH RISK: >240 >200 Not Available [facility] (Lab) [address] [place], [address], 10/22/2023 19:27:46 10/22/19 24 10/22/2023 LIPID PANEL triglyceride s 168 mg/dL 0-150 high NIH FRANCOIS NSUS REPOR T RECOM MENDA TION FOR TRIGL YCERI BLANCHE: ADULT CHILD LOW RISK: <150 ----- BODER LINE: 150-1 99 ----- HIGH RISK: >200 ----- Not Available [facility] (Lab) [address] [place], [address], 10/22/2023 19:27:46 10/22/19 24 10/22/2023 LIPID PANEL HDL cholesterol 69 mg/dL 40- Not Available [facility] (Lab) [address] [place], [address], 10/22/2023 19:27:46 10/22/19 24 10/22/2023 LIPID PANEL LDL cholesterol, calculated 66 mg/dL 0-130 NIH FRANCOIS NSUS REPOR T RECOM MENDA TIONS FOR LDL: ADULT CHILD LOW RISK <130 <110 (OPTI MAL LDL) <100 ----- BORDE RLINE : 130-1 59 ----- HIGH RISK: >160 >130 A TRIGL YCERI DE RESUL T >400 INVAL IDATE S THE CALCU LATIO N FOR LDL FRACT IONAT ION - THE LDL RESUL T WILL NOT BE REPOR CARLOS MANUEL. Not Available [facility] (Lab) [address] [place], [address], 10/22/2023 19:27:46 10/22/19 24 10/22/2023 THYRO XINE/ T4 TOTAL T4, total 11.60 mcg/d L 5.53-1 1.00 high Not Available [facility] (Lab) [address] [place], [address], 10/22/2023 19:47:44 10/22/19 24 10/22/2023 TSH thyroid-stim ulating hormone 4.080 uIU/m L 0.465- 4.680 Not Available [facility] (Lab) [address] [place], [address], 10/22/2023 20:02:58 10/22/19 24 10/22/2023 T3 TOTAL T3, total 1.340 NG/mL 0.970- 1.690 Not Available [facility] (Lab) [address] [place], [address], 10/22/2023 20:03:03 10/22/19 24 10/22/2023 HEMOG LOBIN A1C HA1C 5.6 % 4.0-6. 0 Diabe rey Scree real Crite doron: <5.7% Consi stent with absen ce of diabe rey 5.7-6 .4% Consi stent with incre ased risk for diabe rey (pred iabet es) >OR=6 .5% Consi stent with diabe rey REFER ENCE: Diabe rey Care 2016, 39(Rodriguez ppl.1 ):s13 -s22 Not Available [facility] (Lab) [address] [place], [address], 10/22/2023 20:19:08 07/30/2007/30/2024 CBC/C OMPLE TE BLD COUNT W/DIF F white blood cells 8.1 x10'3 /uL 4.2-10 .8 Not Available [facility] (Lab) [address] [place], [address], 07/30/2024 17:54:12 07/30/20 24 07/30/2024 CBC/C OMPLE TE BLD COUNT W/DIF F red blood cells 5.24 x10'6 /uL 3.80-5 .20 high Not Available [facility] (Lab) [address] [place], [address], 07/30/2024 17:54:12 07/30/2007/30/2024 CBC/C OMPLE TE BLD COUNT W/DIF F hemoglobin 15.2 g/dL 12.0-1 5.6 Not Available [facility] (Lab) [address] [place], [address], 07/30/2024 17:54:12 07/30/2007/30/2024 CBC/C OMPLE TE BLD COUNT W/DIF F hematocrit 47.4 % 35.7-4 5.7 high Not Available [facility] (Lab) [address] [place], [address], 07/30/2024 17:54:12 07/30/2007/30/2024 CBC/C OMPLE TE BLD COUNT W/DIF F mean red cell volume 90.5 fL 82.0-9 9.0 Not Available [facility] (Lab) [address] [place], [address], 07/30/2024 17:54:12 07/30/2007/30/2024 CBC/C OMPLE TE BLD COUNT W/DIF F mean red cell hemoglobin 29.0 pg 27.0-3 3.0 Not Available [facility] (Lab) [address] [place], [address], 07/30/2024 17:54:12 07/30/2007/30/2024 CBC/C OMPLE TE BLD COUNT W/DIF F mean RBC HGB concentratio n 32.1 g/dL 31.0-3 6.0 Not Available [facility] (Lab) [address] [place], [address], 07/30/2024 17:54:12 07/30/20 24 07/30/2024 CBC/C OMPLE TE BLD COUNT W/DIF F red cell distribution width 15.8 % 11.8-1 5.5 high Not Available [facility] (Lab) [address] [place], [address], 07/30/2024 17:54:12 07/30/2007/30/2024 CBC/C OMPLE TE BLD COUNT W/DIF F platelets 232 x10'3 /uL 150-40 0 Not Available [facility] (Lab) [address] [place], [address], 07/30/2024 17:54:12 07/30/2007/30/2024 CBC/C OMPLE TE BLD COUNT W/DIF F mean platelet volume 10.7 fL 9.0-12 .4 Not Available [facility] (Lab) [address] [place], [address], 07/30/2024 17:54:12 07/30/2007/30/2024 CBC/C OMPLE TE BLD COUNT W/DIF F neutrophils 50.3 % 39.0-7 2.0 Not Available [facility] (Lab) [address] [place], [address], 07/30/2024 17:54:12 07/30/2007/30/2024 CBC/C OMPLE TE BLD COUNT W/DIF F lymphocytes 36.6 % 16.0-4 7.0 Not Available [facility] (Lab) [address] [place], [address], 07/30/2024 17:54:12 07/30/2007/30/2024 CBC/C OMPLE TE BLD COUNT W/DIF F monocytes 9.8 % 5.0-12 .0 Not Available [facility] (Lab) [address] [place], [address], 07/30/2024 17:54:12 07/30/2007/30/2024 CBC/C OMPLE TE BLD COUNT W/DIF F eosinophils 2.5 % 1.0-7. 0 Not Available [facility] (Lab) [address] [place], [address], 07/30/2024 17:54:12 07/30/2007/30/2024 CBC/C OMPLE TE BLD COUNT W/DIF F basophils 0.6 % 0.0-2. 0 Not Available [facility] (Lab[facility] [address] [facility] [place], [address], 07/30/2024 17:54:12 07/30/2007/30/2024 CBC/C OMPLE TE BLD COUNT W/DIF F immature granulocytes 0.2 % 0.00-0 .50 Not Available [facility] (Lab) [address] [place], [address], 07/30/2024 17:54:12 07/30/2007/30/2024 CBC/C OMPLE TE BLD COUNT W/DIF F neutrophils, absolute count 4.04 x10'3 /uL 1.5-8. 0 Not Available [facility] (Lab) [address] [place], [address], 07/30/2024 17:54:12 07/30/2007/30/2024 CBC/C OMPLE TE BLD COUNT W/DIF F lymphocytes, absolute count 2.95 x10'3 /uL 1.07-3 .43 Not Available [facility] (Lab) [address] [place], [address], 07/30/2024 17:54:12 07/30/2007/30/2024 CBC/C OMPLE TE BLD COUNT W/DIF F monocytes, absolute count 0.79 x10'3 /uL 0.29-0 .99 Not Available [facility] (Lab) [address] [place], [address], 07/30/2024 17:54:12 07/30/2007/30/2024 CBC/C OMPLE TE BLD COUNT W/DIF F eosinophils, absolute count 0.20 x10'3 /uL 0.02-0 .53 Not Available [facility] (Lab) [address] [place], [address], 07/30/2024 17:54:12 07/30/20 24 07/30/2024 CBC/C OMPLE TE BLD COUNT W/DIF F basophils, absolute count 0.05 x10'3 /uL 0.01-0 .08 Not Available [facility] (Lab) [address] [place], [address], 07/30/2024 17:54:12 07/30/2007/30/2024 CBC/C OMPLE TE BLD COUNT W/DIF F immature granulocytes ,absolute 0.02 x10'3 /uL 0.00-0 .05 Not Available [facility] (Lab) [address] [place], [address], 07/30/2024 17:54:12 07/30/2007/30/2024 CBC/C OMPLE TE BLD COUNT W/DIF F nucleated red blood cells 0.0 % -0 Not Available [facility] (Lab) [address] [place], [address], 07/30/2024 17:54:12 07/30/2007/30/2024 CBC/C OMPLE TE BLD COUNT W/DIF F NRBC# 0.00 x10'3 /uL Not Available [facility] (Lab) [address] [place], [address], 07/30/2024 17:54:12 07/30/2007/30/2024 LIPID PANEL cholesterol 180 mg/dL 140-19 9 NIH FRANCOIS NSUS RECOM MENDA TION FOR GWYN STERO L: ADULT CHILD LOW RISK: <200 <170 BORDE RLINE : <200- 239 ----- HIGH RISK: >240 >200 Not Available [facility] (Lab) [address] [place], [address], 07/30/2024 18:42:33 07/30/2007/30/2024 LIPID PANEL triglyceride s 145 mg/dL 0-150 NIH FRANCOIS NSUS REPOR T RECOM MENDA TION FOR TRIGL YCERI BLANCHE: ADULT CHILD LOW RISK: <150 ----- BODER LINE: 150-1 99 ----- HIGH RISK: >200 ----- Not Available [facility] (Lab) [address] [place], [address], 07/30/2024 18:42:33 07/30/2007/30/2024 LIPID PANEL HDL cholesterol 72 mg/dL 40- Not Available [facility] (Lab) [address] [place], [address], 07/30/2024 18:42:33 07/30/2007/30/2024 LIPID PANEL LDL cholesterol, calculated 79 mg/dL 0-130 NIH FRANCOIS NSUS REPOR T RECOM MENDA TIONS FOR LDL: ADULT CHILD LOW RISK <130 <110 (OPTI MAL LDL) <100 ----- BORDE RLINE : 130-1 59 ----- HIGH RISK: >160 >130 A TRIGL YCERI DE RESUL T >400 INVAL IDATE S THE CALCU LATIO N FOR LDL FRACT IONAT ION - THE LDL RESUL T WILL NOT BE REPOR CARLOS MANUEL. Not Available [facility] (Lab) [address] [place], [address], 07/30/2024 18:42:33 07/30/20 24 07/30/2024 COMPR EHENS DANITZA METAB OLIC PANEL sodium 140 mmol/ L 137-14 5 Not Available [facility] (Lab) [address] [place], [address], 07/30/2024 18:42:38 07/30/20 24 07/30/2024 COMPR EHENS DANITZA METAB OLIC PANEL potassium 4.4 mmol/ L 3.5-5. 1 Not Available [facility] (Lab) [address] [place], [address], 07/30/2024 18:42:38 07/30/2007/30/2024 COMPR EHENS DANITZA METAB OLIC PANEL chloride 109 mmol/ L 98-107 high Not Available [facility] (Lab) [address] [place], [address], 07/30/2024 18:42:38 07/30/2007/30/2024 COMPR EHENS DANITZA METAB OLIC PANEL carbon dioxide 23 mmol/ L 22-30 Not Available [facility] (Lab) [address] [place], [address], 07/30/2024 18:42:38 07/30/2007/30/2024 COMPR EHENS DANITZA METAB OLIC PANEL anion gap 12.4 mmol/ L 14-22 low Not Available [facility] (Lab) [address] [place], [address], 07/30/2024 18:42:38 07/30/2007/30/2024 COMPR EHENS DANITZA METAB OLIC PANEL glucose 88 mg/dL 70-99 Not Available [facility] (Lab) [address] [place], [address], 07/30/2024 18:42:38 07/30/2007/30/2024 COMPR EHENS DANITZA METAB OLIC PANEL BUN 15 mg/dL 8-19 Not Available [facility] (Lab) [address] [place], [address], 07/30/2024 18:42:38 07/30/2007/30/2024 COMPR EHENS DANITZA METAB OLIC PANEL creatinine 1.02 mg/dL 0.66-1 .25 Not Available [facility] (Lab) [address] [place], [address], 07/30/2024 18:42:38 07/30/2007/30/2024 COMPR EHENS DANITZA METAB OLIC PANEL GFR 52 Refer ence Range : [place] ge GFR Healt hy Adult : >60 mL/mi n/1.7 3 m2 Chron ic Kidne y Disea se: 15-60 mL/mi n/1.7 3 m2 Kidne y Failu re: <15/m L/min /1.73 m2 www.n iddk. nih.g ov The MDRD study equat ion has not been valid ated in child darlene <18 years of age; pregn ant women ; the elder ly >85 years of age; or in some racia l or ethni c subgr oups, such as Hispa nics. Outsi de the valid ated trace eters , estim ated GFR is less accur ate, requi ring clini mercedes judgm ent on a case- by-ca se basis . Clini mercedes inter preta tion for other races and ages must be made by the clini emerson. The MDRD study equat ion has not been valid ated for the evalu ation of serum creat inine relat ed to nutri coleen l statu s or medic ation usage . For perso ns <18 years of age, a pedia tric GFR calcu lator is avail able on the [facility] websi te: https ://simón nichols.hudson goldberg/natahsa umanzoral s/kdo qi/gf r_cal culat or Not Available [facility] (Lab) [address] [place], [address], 07/30/2024 18:42:38 07/30/2007/30/2024 COMPR EHENS DANITZA METAB OLIC PANEL alkaline phosphatase 100 U/L 38-126 Not Available [facility] (Lab) [address] [place], [address], 07/30/2024 18:42:38 07/30/20 24 07/30/2024 COMPR EHENS DANITZA METAB OLIC PANEL alanine aminotransfe rase 37 U/L 0-35 high Not Available [facility] (Lab) [address] [place], [address], 07/30/2024 18:42:38 07/30/2007/30/2024 COMPR EHENS DANITZA METAB OLIC PANEL aspartate aminotransfe rase 42 U/L 15-37 high Not Available [facility] (Lab) [address] [place], [address], 07/30/2024 18:42:38 07/30/2007/30/2024 COMPR EHENS DANITZA METAB OLIC PANEL bilirubin, total 0.80 mg/dL 0.20-1 .30 Not Available [facility] (Lab) [address] [place], [address], 07/30/2024 18:42:38 07/30/2007/30/2024 COMPR EHENS DANITZA METAB OLIC PANEL calcium 9.7 mg/dL 8.4-10 .2 Not Available [facility] (Lab) [address] [place], [address], 07/30/2024 18:42:38 07/30/2007/30/2024 COMPR EHENS DANITZA METAB OLIC PANEL total protein 6.7 g/dL 6.3-8. 2 Not Available [facility] (Lab) [address] [place], [address], 07/30/2024 18:42:38 07/30/2007/30/2024 COMPR EHENS DANITZA METAB OLIC PANEL albumin 4.0 g/dL 3.0-4. 4 Not Available [facility] (Lab) [address] [place], [address], 07/30/2024 18:42:38 07/30/2007/30/2024 COMPR EHENS DANITZA METAB OLIC PANEL globulin 2.7 g/dL 2.6-4. 2 Not Available [facility] (Lab) [address] [place], [address], 07/30/2024 18:42:38 07/30/20 24 07/30/2024 COMPR EHENS DANTIZA METAB OLIC PANEL A/G ratio 1.5 ratio 1.0-2. 0 Not Available [facility] (Lab) [address] [place], [address], 07/30/2024 18:42:38 07/30/20 24 07/30/2024 T3 FREE free T3 2.7 pg/mL 2.77-5 .27 low Not Available [facility] (Lab) [address] [place], [address], 07/30/2024 18:44:25 07/30/2007/30/2024 T4 FREE free T4 1.34 NG/dL 0.78-2 .19 Not Available [facility] (Lab) [address] [place], [address], 07/30/2024 18:44:30 07/30/2007/30/2024 TSH thyroid-stim ulating hormone 3.700 uIU/m L 0.465- 4.680 Not Available [facility] (Lab) [address] [place], [address], 07/30/2024 19:03:33 07/30/2007/30/2024 VITAM IN B12 (TRACY CONSTANCE ) vb12 388 pg/mL 239-93 1 Not Available [facility] (Lab) [address] [place], [address], 07/30/2024 19:53:28 07/30/20 24 07/30/2024 FOLAT E, SERUM /PLAS MA folate 11.4 NG/mL 2.76-2 0.0 Not Available [facility] (Lab) [address] [place], [address], 07/30/2024 19:53:31 04/24/20 23 04/24/2023 US, perez x, carot id arter y No observ ation record ed. [email or web address] [facility] [address], [place], [address], 06/13/2023 17:01:52 04/25/20 23 04/24/2023 , [facility] sylvia beard No observ ation record ed. [email or web address] [facility] [address], [place], [address], 06/13/2023 17:02:23 Result Notes None recorded. Problems Name Problem SNOMED Code Status Onset Date Resolution Date Notes Provider Name and Address Organization Details Recorded Time Prediabet es 503889337 Active 2022 Not Available [facility] 4 07:59:29 Dyslipide titi 219096701 Active 2022 Not Available [facility] 4 07:59:29 Thyroid eye disease 692676156 Active 2022 Not Available [facility] 4 07:59:29 Anxiety 64257044 Active 2022 Not Available [facility] 4 07:59:29 Benign essential hypertens ion 0513965 Active Not Available [facility] 4 07:59:29 Acquired trigger finger 2677438 Active Not Available [facility] 4 07:59:29 Pain of right shoulder joint 69481473528 812284 Active 2021 Not Available [facility] 4 07:59:29 Asthma 028955849 Active Not Available [facility] 4 07:59:29 Pure hyperchol esterolem ia 315738628 Active Not Available [facility] 4 07:59:29 Shoulder joint pain 075556833 Completed Not Available [facility] 3 04:53:28 Pain in right arm 888936715 Active 2021 Not Available [facility] 4 07:59:29 Bronchiti s 58943659 Completed Not Available [facility] 3 04:53:28 Migraine 60043938 Active Not Available [facility] 4 07:59:29 Vertigo 846465195 Completed Not Available [facility] 3 04:53:28 Hypothyro idism 73290841 Active Not Available [facility] 4 07:59:29 Erythema of skin 084571719 Completed Not Available [facility] 3 04:53:29 Herpes zoster 0071751 Completed Not Available [facility] 3 04:53:29 Dysuria 72471870 Completed Not Available [facility] 3 04:53:29 Chronic urticaria 90970237 Active Not Available [facility] 4 07:59:29 Coronary arteriosc lerosis 32331152 Active Not Available [facility] 4 07:59:29 Vulvitis 17403829 Completed Not Available [facility] 3 04:53:29 Chronic rhinitis 17447766 Completed Not Available [facility] 3 04:53:29 Skin lesion 54968472 Active 2021 Not Available [facility] 4 07:59:29 Problem Notes Documentation Provider Name and Address Organization Details Recorded Time Endocrinology Consult Note : [facility] [address], [facility] [id number], Judith A (id #[id number], : 1945) Documents sent via fax will include the following message: This fax may contain sensitive and confidential personal health information that is being sent for the sole use of the intended recipient. Unintended recipients are directed to securely destroy any materials received. You are hereby notified that the unauthorized disclosure or other unlawful use of this fax or any personal health information is prohibited. To the extent patient information contained in this fax is subject to 42 CFR Part 2, this regulation prohibits unauthorized disclosure of these records. If you received this fax in error, please visit [email or web address] to notify the sender and confirm that the information will be destroyed. If you do not have internet access, please call to notify the sender and confirm that the information will be destroyed. Thank you for your attention and cooperation. [ID:[id number]][facility] [employer] [facility] [address] [place] [id number] , Date: 03/06/2023RE: Jaylyn Chaparro, : 1945, PT ID #[id number] Neff MD, I would like to thank you for referring Jaylyn Chaparro to our practice for consultation and evaluation of FU ON LABS , on 03/06/2023. I have enclosed a copy of the office evaluation for your records. Once again, thank you for allowing me to participate in the care of this patient. Sincerely, Electronically Signed by: CHRISTOPHER DUQUE MD Encounter Reason/Date FU ON LABS 03/06/2023 - 02:45PM - [facility] [place] Pat[place] Problems:Reviewed Problems Thyroid eye disease - Onset: 03/06/2023 Hypothyroidism Pure hypercholesterolemia Dyslipidemia - Onset: 03/06/2023 Migraine Benign essential hypertension Coronary arteriosclerosis Asthma Chronic urticaria Skin lesion - Onset: 06/19/2022 Acquired trigger finger Pain in right arm - Onset: 01/02/2022 Prediabetes - Onset: 03/06/2023 Pain of right shoulder joint - Onset: 01/09/2022 Allergies: Reviewed Allergies ALEVE: Edema DICLOFENAC: - palpatations ERYTHROMYCIN BASE: Hives IODINATED CONTRAST MEDIA: Hives SULFA (SULFONAMIDE ANTIBIOTICS): Hives DYES in clothes Some allergies listed in Documents: #[id number], #[id number], #[id number], #[id number], #[id number], #[id number] could not be added to this patient's chart. Please review these documents and add these allergies to the patient's chart manually as needed. Medications: Reviewed Medications NameDate Source albuterol sulfate HFA 90 mcg/actuation aerosol inhalerINHALE 2 PUFFS BY MOUTH EVERY 4 HOURS12/21/22 filled surescripts ALPRAZolam 0.25 mg tabletTAKE 1 TABLET BY MOUTH EVERY DAY OZHXWL52/19/21 filled MIGRATION.[id number] atorvastatin 10 mg tabletTAKE 1 TABLET BY MOUTH DAILY WITH 20 MG NASAHS62/07/23 prescribed Christopher Duque MD atorvastatin 20 mg tabletTAKE 1 TABLET BY MOUTH DAILY WITH 10 MG ZRYHXN47/07/23 prescribed Christopher Duque MD Calcium 600start started MIGRATION.4805480959 clopidogreL 75 mg tabletTAKE 1 TABLET BY MOUTH EVERY DAY12/16/22 filled surescripts furosemide 20 mg tabletTAKE 1 TABLET BY MOUTH EVERY DAY01/13/23 filled surescripts /18/23 entered Tae Cano iron 65 mg tabletTake by oral route., start started MIGRATION.5857490006 levothyroxine 125 mcg tabletTake 1 tablet(s) every day by oral route in the morning for 90 days.03/06/23 prescribed Christopher Duque MD luteinstart started MIGRATION.[id number] magnesium 500 mg tabletTake by oral route., start started MIGRATION.9833334218 pantoprazole 40 mg tablet,delayed releaseTAKE 1 TABLET BY MOUTH EVERY DAY02/11/23 filled surescripts selenium 100 mcg tabletTake by oral route., start started MIGRATION.6273745731 Vitamin Dstart started MIGRATION.3174529885 Xiidra 5 % eye drops in a dropperetteINSTILL 1 DROP INTO BOTH EYES BY OPHTHALMIC ROUTE 2 TIMES PER DAY APPROXIMATELY 12 HOURS APART03/06/23 prescribed Christopher Duque MD zinc 25 mg tabletTake by oral route., start started MIGRATION.[id number] asthmacort prn; does take vitamins and supplements Family History:Family History not reviewed (last reviewed 02/14/2023) Mother - Hypertensive disorder Brother - Heart disease Brother - Parkinson's disease - Malignant tumor of tonsil - Father - History of emphysema Social History:Social History not reviewed (last reviewed 02/14/2023) Activities of Daily LivingAre you able to care for yourself?: YesAre you blind or do you have difficulty seeing?: NoAre you deaf or do you have serious difficulty hearing? : NoDo you have difficulty concentrating, remembering or making decisions?: Yes (Notes: difficulty concentrating)Do you have difficulty walking or climbing stairs?: Yes (Notes: difficulty walking distances but does not use cane/walker)Do you have difficulty dressing or bathing?: NoDo you have difficulty doing errands alone?: NoAre you able to walk?: Yes: walks without restrictionsDo you have transportation difficulties?: NoDiet and ExerciseWhat type of diet are you following?: RegularDo you have any dietary restrictions?: NoWhat is your exercise level?: NoneSubstance UseDo you or have you ever smoked tobacco?: Never smokerHow much tobacco do you smoke?: NoneHow many years have you smoked tobacco?: 0Do you or have you ever used any other forms of tobacco or nicotine?: NoDo you or have you ever used e-cigarettes or vape?: Never used electronic cigarettesDo you or have you ever used smokeless tobacco?: Never used smokeless tobaccoHow much tobacco do you chew?: noneWhat was the date of your most recent tobacco screening?: 02/14/2023Has tobacco cessation counseling been provided?: No (Notes: not needed-never smoked)What is your level of alcohol consumption?: NoneDo you use any illicit or recreational drugs?: NoWhich illicit or recreational drugs have you used?: noneWhat is your level of caffeine consumption?: HeavyAdvance DirectiveDo you have a medical power of real estate attorney?: YesMarriage and SexualityWhat is your relationship status?: MarriedHome and EnvironmentWhere do you live?: Single-level houseDo you have smoke and carbon monoxide detectors in your home?: YesAre you passively exposed to smoke?: NoAre there any guns present in your home?: YesDo you use sunscreen routinely?: NoLifestyleDo you wear a helmet when biking?: (Notes: does not bike)Do you use your seat belt or car seat routinely?: YesEducation and OccupationWhat is the highest grade or level of school you have completed or the highest degree you have received?: High school graduatePublic Health and TravelHave you recently traveled abroad?: NoIn the 14 days before symptom onset, have you had close contact with a laboratory-confirmed COVID-19 while that case was ill?: NoIn the 14 days before symptom onset, have you had close contact with a person who is under investigation for COVID-19 while that person was ill?: NoGender Identity and LGBTQ IdentityGender identity: Identifies as FemaleAssigned sex at : FemalePronouns: she/herSexual orientation: Straight or heterosexualSurgical HistorySurgical History not reviewed (last reviewed 02/14/2023) Breast Biopsy - 2014 right breast-benign; 10/18/2005 right core biopsy-invasive ductal carcinoma -grade 1 CABG - triple bypass 2005-- 5 stents placed prior to CABG Cataract Surgery - left Eye Surgery - x2 right eye 12/2010 & retina 2009 Masectomy - left Tubal Ligation - 1967 Hymenectomy - 1963 Procedure on urethra - 06/24/2020 Excision of basal cell carcinoma - 11/10/2019 Parathyroidectomy - 01/28/2019 Lumpectomy - 11/02/2005 - right Additional HistoryNone recordedHistory of Present Illness:77 yo female comes in for follow up in management of prediabetes (A1C of 5.8%), hypothyroidism and dyslipidemia last seen in April at that time we continued natural insulin sensitizers We continued LT4 125 mcg daily and atorvastatin 30 mg daily. She hasn't done anything for her shoulder as of yet- she has labral tear of right shoulder and loss of cartilage. She has been putting off surgery. 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 She has to have her husbands help at home for daily cores. labs from 02/19/23:a1c of 5.8%glucose 103 mg/dLCr normalLFT /144/66/82FT4 of 1.50 ng/dLFT3 of 2.9 pg/mlTSH of 5.77 uIU/mLReview of Systems:ROS as noted in the HPIPhysical ExamConstitutional:General Appearance: not anxious/nervous, no sweating, andobese. Level of Distress: no acute distress. Eyes:Lids and Conjunctivae: no discharge, pallor, lid lag, or periorbital edema and non-injected. Neck:Neck: supple, trachea midline, no masses, and full range of motion. Thyroid: no enlargement or nodules and non-tender. Neck vessels: no carotid bruits or thyroid bruits. Lymph Nodes: no anterior cervical LAD, posterior cervical LAD, submandibular LAD, submental LAD, preauricular LAD, or supraclavicular LAD. Cardiovascular:Apical Impulse: not displaced. Heart Auscultation: normal S1 and S2; no murmurs, rubs, or gallops; and regular rate and rhythm. Lungs:Auscultation: no wheezing, rales/crackles, or rhonchi and breath sounds normal, good air movement, and clear to auscultation. Psychiatric:Mental Status: normal mood and affect, no diffuse anxiety or paranoid ideations, and active and alert.Procedure DocumentationNone recordedAssessment/Plan1. Prediabetes-a1c of 5.8%- discussed glucose one support as patient wishes to stay away from pharmacotherapy such as metformin. Recommended she incorporate natural insulin sensitizers such as pears, apples, cinnamon, swapna and sweet potatoes to help mobilize her endogenous insulin. Recommended up to 150 minutes of moderate level activity/exercise weekly.R73.03: Prediabetes HBA1C (HEMOGLOBIN A1C), BLOOD 2. Hypothyroidism-FT4 in range- continue on LT4 125 mcg daily. She was reminded to take her LT4 on empty stomach with glass of water and wait one hour to eat or have her coffee in morning and up to 4 hours if ever taking any heartburn or reflux medications to help optimize absorption. Discussed paleo like diet with restriction of GMOs to help with energy and to optimize absorption of vitamins and minerals and reduce inflammation.E03.9: Hypothyroidism, unspecified T3, FREE, SERUM OR PLASMA TSH + FREE T4, SERUM CMP, SERUM OR PLASMA levothyroxine 125 mcg tablet - Take 1 tablet(s) every day by oral route in the morning for 90 days. Qty: (90) tablet Refills: 1 Pharmacy: [facility] #[id number] Note to Pharmacy: Patient has not been in over a year. Dr duque will discuss a 90 supply when patient comes in for appointment in February. 3. Dyslipidemia-continue on statin therapy as LDL in range.E78.5: Hyperlipidemia, unspecified LIPID PANEL, SERUM 4. 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 Renewal of prescription-refill statin therapy. Spent up to 28 minutes preparing to see the patient (eg, review of tests), obtaining and/or reviewing separately obtained history, performing a medically appropriate examination and evaluation, counseling and educating the patient, ordering medications, tests, along with documenting clinical information in the electronic health record, independently interpreting results and communicating results to the patient. RTC in 6 months. Patient was provided a handwritten lab order which contains our fax number. If she chooses to go outside of the [facility] system to obtain labwork she was advised to provide our fax number and my information to the lab she will be obtaining labwork from in order to have her labs properly forwarded over for me to review so there is no loss of follow up due to use of outside network. She was also advised to contact our clinic informing us that she has completed her labwork so we are aware we will need to reach out to the appropriate laboratory to request her results be forwarded to us so I might have the ability to review and make further medical decision making in her case. She voiced understanding.Z76.0: Encounter for issue of repeat prescription atorvastatin 10 mg tablet - TAKE 1 TABLET BY MOUTH DAILY WITH 20 MG TABLET Qty: (90) tablet Refills: 0 Pharmacy: [facility] #[id number] atorvastatin 20 mg tablet - TAKE 1 TABLET BY MOUTH DAILY WITH 10 MG TABLET Qty: (90) tablet Refills: 0 Pharmacy: [facility] #[id number] Return to Office Casey Neff MD for Any 15 at [facility] on 06/13/2023 at 02:45 PM Christopher Duque MD for Follow Up 15 at [facility] [place] on 09/05/2023 at 02:45 PM TAE Cano [place] [facility] 06/24/2023 15:49:36 Procedures Surgical History Date Name Laterality Status Provider Name and Address Organization Details Recorded Time 020 procedure on urethra completed Not Available [facility] 11/28/2022 04:43:20 020 excision of basal cell carcinoma completed Not Available [facility] 11/28/2022 04:43:20 020 Most Recent Bone Density completed Not Available [facility] 11/28/2022 04:43:15 019 Most Recent Mammogram completed Not Available [facility] 11/28/2022 04:43:15 019 parathyroidectomy completed Not Available [facility] 11/28/2022 04:43:20 011 Date of Last Pap Smear completed Not Available [facility] 11/28/2022 04:43:15 006 Lumpectomy completed Not Available [facility] 11/28/2022 04:43:20 CABG completed Not Available [facility] 11/28/2022 04:43:20 Breast Biopsy completed Not Available [facility] 11/28/2022 04:43:20 hymenectomy completed Not Available [facility] 11/28/2022 04:43:20 Eye Surgery completed Not Available [facility] 11/28/2022 04:43:20 Tubal Ligation completed Not Available [facility] 11/28/2022 04:43:20 Masectomy completed Not Available [facility] 11/28/2022 04:43:20 Cataract Surgery completed Not Available [facility] 11/28/2022 04:43:20 Imaging Results None recorded. Procedure Notes None recorded. Medical Equipment None Reported. Allergies Allergen ID Allergen Name Allergen Category Reaction Reaction Severity Criticality Documentation Date Start Date Code Code System Note Provider Name and Address Organization Details Recorded Time 8789 Substance with sulfonami de structure and antibacte rial mechanism of action (substanc e) medicatio n hives Not available Not available 11/28/2022 86392 8003 SNOMED Not Available [facility] 3 05:06:37 8790 Iodinated contrast media (substanc e) medicatio n hives Not available Not available 11/28/2022 97187 2004 SNOMED Not Available [facility] 3 05:06:38 8791 erythromy efrain medicatio n hives Not available Not available 11/28/2022 4053 RxNorm Not Available [facility] 3 05:06:38 8792 diclofena c Not available Not available Not available Not available 11/28/2022 3355 RxNorm palpa tatio ns Not Available [facility] 3 05:06:38 8793 Aleve medicatio n edema Not available Not available 11/28/2022 61288 1 RxNorm Not Available [facility] 3 05:06:38 8794 devon mycin medicatio n hives Not available Not available 11/28/202218682 RxNorm Not Available [facility] 3 05:06:38 Medications Name Sig Start Date Stop Date Status Note LastModified by Organization Details LastModified Time celecoxib 200 mg capsule TAKE 1 CAPSULE BY MOUTH EVERY DAY active Not Available Not Available No t Available amoxicill in 500 mg capsule TK ONE C PO TID TAT 04/12 completed Not Available Not Available Not Available atorvasta tin 40 mg tablet TAKE 1 TABLET BY MOUTH DAILY 06/[address] Tawanda ngos pt to stay on 30 mg QD Not Available Not Available Not Available Altace 5 mg capsule Take 1 capsule every day by oral route. 07/27 completed Not Available Not Available Not Available magnesium 500 mg tablet Take by oral route. 2021 active Not Available Not Available Not Avai lable prednison e 10 mg tablet TAKE 2 TABLETS (20 MG) BY ORAL ROUTE ONCE DAILY 05/14 completed Not Available Not Available Not Available atorvasta tin 20 mg tablet TAKE 1 TABLET BY MOUTH DAILY WITH THE 10 MG TABLETS active Not Available Not Available No t Available atorvasta tin 10 mg tablet TAKE 1 TABLET BY MOUTH DAILY WITH THE 20 MG TABLETS active Not Available Not Available No t Available oxybutyni n chloride ER 10 mg tablet,ex tended release 24 hr TAKE 1 TABLET BY MOUTH EVERY 24 HOURS active Not Available Not Available No t Available benzonata te 200 mg capsule 11/24 completed Not Available Not Available Not Available metoprolo l succinate ER 50 mg tablet,ex tended release 24 hr 01/27 completed Not Available Not Available Not Available hydrocodo ne 5 mg-acetam inophen 325 mg tablet 05/14 completed Not Available Not Available Not Available phenazopy ridine 200 mg tablet TAKE 1 TABLET BY MOUTH THREE TIMES A DAY NEEDED FOR PAIN active Not Available Not Available No t Available prednison e 20 mg tablet Take 60mg daily for 3days, take 40mg daily for 3days and 20mg daily for 3days active Not Available Not Available No t Available Synthroid 100 mcg tablet Take 1 tablet every day by oral route as directed for 90 days. 01/11 completed Not Available Not Available Not Available prednison e 5 mg tablet TAKE 4 TABLETS BY ORAL ROUTE DAILY FOR 30 DAYS AND WEAN DOWN DIRECTED 01/27 completed Not Available Not Available Not Available penicilli n V potassium 500 mg tablet active Not Available Not Available Not Available metronida zole 500 mg tablet TAKE 1 TABLET BY MOUTH EVERY 8 HOURS FOR 14 DAYS 06/29 completed Not Available Not Available Not Available clopidogr el 75 mg tablet TAKE 1 TABLET BY MOUTH EVERY DAY active Not Available Not Available No t Available amlodipin e 5 mg tablet TAKE 1 TABLET BY MOUTH AT NIGHT 01/27 completed Not Available Not Available Not Available ciproflox acin 500 mg tablet TAKE 1 TABLET BY MOUTH TWICE A DAY FOR 7 DAYS 02/22 completed Not Available Not Available Not Available sulfameth oxazole 800 mg-trimet hoprim 160 mg tablet 11/24 completed Not Available Not Available Not Available leflunomi de 20 mg tablet TAKE 1 TABLET BY MOUTH EVERY DAY DIRECTED 01/02 completed Not Available Not Available Not Available triamcino lone acetonide 0.1 % topical cream 12/11 completed Not Available Not Available Not Available amoxicill in 500 mg tablet 4 tablets 30 minutes prior to procedur e 01/02 completed Not Available Not Available Not Available acyclovir 800 mg tablet active Not Available Not Available Not Available levothyro xine 25 mcg tablet TAKE 1 TABLET BY MOUTH DAILY ALONG WITH LEVOTHYR OXINE 125MCG FOR A TOTAL DOSE OF 150MCG DAILY 09/16 completed Not Available Not Available Not Available meloxicam 7.5 mg tablet TAKE 1 TABLET BY MOUTH DAILY 06/02 completed Not Available Not Available Not Available propranol ol 40 mg tablet 07/27 completed Not Available Not Available Not Available alprazola m 0.25 mg tablet TAKE 1 TABLET BY MOUTH EVERY DAY NEEDED active Not Available Not Available No t Available prednison e 1 mg tablet TAKE 1 TABLET BY MOUTH ONCE DAILY FOR 90 DAYS 01/27 completed Not Available Not Available Not Available morphine 30 mg immediate release tablet take 1 tablet po 30 mins before procedur e active Not Available Not Available No t Available prednison e 2.5 mg tablet 02/06 completed Not Available Not Available Not Available cephalexi n 500 mg capsule Take 1 capsule 3 times a day by oral route for 7 days. 09/17 completed Not Available Not Available Not Available pantopraz ole 40 mg tablet,de layed release TAKE 1 TABLET BY MOUTH EVERY DAY active Not Available Not Available No t Available levothyro xine 125 mcg tablet TAKE 1 TABLET BY MOUTH EVERY DAY IN THE MORNING active Not Available Not Available No t Available nystatin 100,000 unit/gram topical cream 12/11 completed Not Available Not Available Not Available buspirone 10 mg tablet TK 1 T PO QD 04/12 completed Not Available Not Available Not Available levothyro xine 150 mcg tablet TAKE 1 TABLET BY MOUTH EVERY DAY 01/27 completed Not Available Not Available Not Available zinc 25 mg tablet Take by oral route. 2021 active Not Available Not Available Not Avai lable hydrochlo rothiazid e 12.5 mg capsule TK ONE C PO D 12/02 completed Not Available Not Available Not Available nystatin- triamcino lone 100,000 unit/g-0. 1 % topical cream APPLY TO THE AFFECTED AREA(S) BY TOPICAL ROUTE 2 TIMES PER DAY IN THEMORNI NG AND EVENING active Not Available Not Available No t Available isomethep tene-dich loralphen -acetamin ophen 65 mg-100 mg-325 mg capsule TK 2 CS PO AT ONSET OF HEADACHE . TK 1 C Q 1 H PRN. MAX 5 CS IN 12 H. 03/04 completed Not Available Not Available Not Available diclofena c sodium 75 mg tablet,de layed release TK 1 T PO BID active Not Available Not Available No t Available folic acid 1 mg tablet TAKE 1 TABLET BY MOUTH EVERY DAY 01/02 completed Not Available Not Available Not Available hydroxyzi ne HCl 25 mg tablet TAKE 1 TABLET BY MOUTH TWICE A DAY NEEDED active Not Available Not Available No t Available selenium 100 mcg tablet Take by oral route. 2021 active Not Available Not Available Not Avai lable hydrochlo rothiazid e 25 mg tablet TK 1 T PO D 12/11 completed Not Available Not Available Not Available furosemid e 20 mg tablet TAKE 1 TABLET BY MOUTH EVERY DAY active Not Available Not Available No t Available metoprolo l succinate ER 25 mg tablet,ex tended release 24 hr 01/27 completed Not Available Not Available Not Available Exelderm 1 % topical cream APPLY TO THE AFFECTED AND SURROUND ING AREAS OF SKIN D PRN 04/12 completed Not Available Not Available Not Available levofloxa efrain 500 mg tablet TAKE 1 TABLET BY MOUTH STARTING 08/03/20 21 ONCE A DAILY FOR 3 DAYS 08/10 completed Not Available Not Available Not Available methylpre dnisolone 4 mg tablets in a dose pack FOLLOW PACKAGE DIRECTIO NS 01/02 completed Not Available Not Available Not Available albuterol sulfate HFA 90 mcg/actua tion aerosol inhaler INHALE 2 PUFFS BY MOUTH EVERY 4 HOURS active Not Available Not Available No t Available hydrocort isone 2.5 % topical ointment APPLY TO THE AFFECTED AREA(S) ON THE FACE TWICE DAILY FOR 2 3 WEEKS active Not Available Not Available No t Available morphine 15 mg immediate release tablet Take 1 tablet as needed by oral route as needed. 08/12 completed Not Available Not Available Not Available ondansetr on 4 mg disintegr ating tablet DISSOLVE 1 TABLET ON THE TONGUE EVERY 8 HOURS 06/29 completed Not Available Not Available Not Available metformin ER 500 mg tablet,ex tended release 24 hr TAKE 1 TABLET BY MOUTH EVERY DAY 08/10 completed Not Available Not Available Not Available diazepam 5 mg tablet 08/16 completed Not Available Not Available Not Available ramipril 10 mg capsule TAKE ONE CAPSULE BY MOUTH EVERY DAY 01/27 completed Not Available Not Available Not Available amoxicill in 875 mg-potass ium clavulana te 125 mg tablet TAKE 1 TABLET BY MOUTH EVERY 12 HOURS FOR 14 DAYS 06/29 completed Not Available Not Available Not Available iron 65 mg tablet Take by oral route. 2021 active Not Available Not Available Not Avai lable methotrex ate sodium (PF) 25 mg/mL injection solution 01/02 completed Not Available Not Available Not Available nitrofura ntoin monohydra te/macroc rystals 100 mg capsule Take 1 capsule twice a day by oral route for 7 days. 01/27 completed Not Available Not Available Not Available Calcium 600 2021 active Not Available Not Available Not Avai lable ibuprofen active Not Available Not Cyndy ilable Not Available Vitamin D 2021 active Not Available Not Available Not Avai lable Synthroid 12/02 completed mg unknown? Not Available Not Available Not Available lutein 2021 active Not Available Not Available Not Avai lable BD Insulin Syringe Ultra-Fin e 1 mL 30 gauge x 1/2 02/21 completed Not Available Not Available Not Available Flulaval Quad 60 mcg (15 mcg x 4)/0.5 mL IM suspensio n ADM 0.5ML UTD active Not Available Not Available No t Available Xiidra 5 % eye drops in a dropperet te INSTILL 1 DROP IN BOTH EYES TWICE DAILY 12 HOURS APART active Not Available Not Available No t Available Bydureon BCise 2 mg/0.85 mL subcutane ous auto-inje ctor Inject 2 mg every week by subcutan eous route in the morning for 30 days. 02/02 completed Not Available Not Available Not Available Ozempic 0.25 mg or 0.5 mg (2 mg/1.5 mL) subcutane ous pen injector 03/06 completed has not started Not Available Not Available Not Available Fluzone High-Dose 1694-7708 (PF) 180 mcg/0.5 mL intramusc ular syringe TO BE ADMINIST ERED BY PHARMACI ST FOR IMMUNIZA TION 01/02 completed Not Available Not Available Not Available Fluzone High-Dose (PF) 180 mcg/0.5 mL intramusc ular syringe ADM 0.5ML IM UTD 09/17 completed Not Available Not Available Not Available Fluzone High-Dose Quad (PF) 240 mcg/0.7 mL IM syringe ADM 0.7ML IM UTD 02/21 completed Not Available Not Available Not Available Vitals Date Recorded Body mass index (BMI) Body height Heart rate Body temperature Body weight Systolic blood pressure Diastolic blood pressure Provider Name and Address Organization Details Last Updated DateTime 3 42.6 kg/m2 152.4 cm 72 /min 97.3 [degF] 13403.1 4 g 124 mm[Hg] 80 mm[Hg] Not Available [facility] 3 04:46:17 Date Recorded Body height Body mass index (BMI) Body weight Body temperature Heart rate Systolic blood pressure Diastolic blood pressure Provider Name and Address Organization Details Last Updated DateTime 4 152.4 cm 43.4 kg/m2 063851. 51 g 97.7 [degF] 75 /min 120 mm[Hg] 82 mm[Hg] Chiara Eckert Bhup[employer] 4 14:44:03 Date Recorded Body height Body mass index (BMI) Body weight Body temperature Heart rate Systolic blood pressure Diastolic blood pressure Provider Name and Address Organization Details Last Updated DateTime 3 152.4 cm 42.6 kg/m2 34693.1 4 g 98.4 [degF] 87 /min 142 mm[Hg] 80 mm[Hg] Chiara Eckert [employer]up[employer] 3 15:17:25 Date Recorded Body height Body mass index (BMI) Body weight Body temperature Respiratory rate Heart rate Systolic blood pressure Diastolic blood pressure Provider Name and Address Organization Details Last Updated DateTime 3 152.4 cm 42.6 kg/m2 19083.8 6 g 97.4 [degF] 18 /min 82 /min 184 mm[Hg] 81 mm[Hg] Alexsandra Malik [facility] [email or web address] [facility] [employer] 3 16:17:24 Date Recorded Body height Body mass index (BMI) Body weight Body temperature Heart rate Systolic blood pressure Diastolic blood pressure Provider Name and Address Organization Details Last Updated DateTime 3 152.4 cm 42.2 kg/m2 30224.9 5 g 97.8 [degF] 83 /min 132 mm[Hg] 80 mm[Hg] Chiara Eckert [employer] 3 15:49:04 Social History Question Answer Notes LastModified by Organization Details LastModified Time Tobacco Smoking Status Never Smoker Alee Sintia [email or web address] [facility] [employer] 03/06/2023 15:39:59 Do You Have An Advance Directive? No [id number] Information not available 11/28/2022 Are You Blind Or Do You Have Difficulty Seeing? No [email or web address] Information not available 03/06/2023 What Is Your Level Of Caffeine Consumption? Heavy [id number] Information not available 11/28/2022 How Much Tobacco Do You Chew? None [id number] Information not available 11/28/2022 In The 14 Days Before Symptom Onset, Have You Had Close Contact With A Laboratory-conf irmed COVID-19 While That Case Was Ill? No Information not available 03/06/2023 In The 14 Days Before Symptom Onset, Have You Had Close Contact With A Person Who Is Under Investigation For COVID-19 While That Person Was Ill? No [email or web address] Information not available 03/06/2023 Are You Deaf Or Do You Have Serious Difficulty Hearing? No [email or web address] Information not available 03/06/2023 What Type Of Diet Are You Following? [id number] [id number] Information not available 11/28/2022 Which Illicit Or Recreational Drugs Have You Used? None [email or web address] Information not available 03/06/2023 What Is The Highest Grade Or Level Of School You Have Completed Or The Highest Degree You Have Received? [id number] Information not available 03/06/2023 Have There Been Any Changes To Your Family Or Social Situation? No [email or web address] Information not available 03/06/2023 What Is The Fluoride Status Of Your Home? Unknown [email or web address] Information not available 03/06/2023 Are There Any Guns Present In Your Home? Yes [email or web address] Information not available 03/06/2023 Do You Use Insect Repellent Routinely? No [email or web address] Information not available 03/06/2023 Where Do You Live? SingleLevelHouse [email or web address] Information not available 03/06/2023 Do You Have A Medical Power Of Booster Station Operator? Yes [email or web address] Information not available 03/06/2023 What Was The Date Of Your Most Recent Tobacco Screening? 10/22/2023 [email or web address] Information not available 10/22/2023 Do You Have Any Pets? No [email or web address] Information not available 03/06/2023 What Is Your Relationship Status? [id number] Information not available 11/28/2022 Do You Use Your Seat Belt Or Car Seat Routinely? Yes Information not available 03/06/2023 Do You Have Smoke And Carbon Monoxide Detectors In Your Home? Yes [email or web address] Information not available 03/06/2023 Are You Passively Exposed To Smoke? No [email or web address] Information not available 03/06/2023 Are There Any Smokers In Your House? No [email or web address] Information not available 03/06/2023 How Much Tobacco Do You Smoke? No [id number] Information not available 11/28/2022 What Types Of Sporting Activities Do You Participate In? None [email or web address] Information not available 03/06/2023 Do You Use Sunscreen Routinely? No [email or web address] Information not available 03/06/2023 Has Tobacco Cessation Counseling Been Provided? No Not Needed-never Smoked [email or web address] Information not available 03/06/2023 How Many Years Have You Smoked Tobacco? 0 [email or web address] Information not available 03/06/2023 Have You Recently Traveled Abroad? No [email or web address] Information not available 03/06/2023 Do You Have Difficulty Walking Or Climbing Stairs? Yes Difficulty Walking Distances But Does Not Use Cane/walker [email or web address] Information not available 03/06/2023 Do You Have Any Dietary Restrictions? No [email or web address] Information not available 03/06/2023 Sex: Female Functional Status Question Answer Note LastModified by Organizat ion Details LastModified Time Do you use any illicit or recreational drugs? No Information not available 03/06/2023 Do you or have you ever used any other forms of tobacco or nicotine? No [email or web address] Information not available 03/06/2023 What is your level of alcohol consumption? None [id number] Information not available 11/28/2022 Do you or have you ever used smokeless tobacco? Never used smokeless tobacco [id number] Information not available 11/28/2022 Do you have transportation difficulties? No Information not available 03/06/2023 Are you able to walk? YESWOREST [email or web address] Information not available 03/06/2023 Do you have difficulty doing errands alone? No [email or web address] Information not available 03/06/2023 Are you able to care for yourself? Yes [email or web address] Information n ot available 03/06/2023 Do you have difficulty dressing or bathing? No [email or web address] Information not available 03/06/2023 Do you or have you ever used e-cigarettes or vape? Never used electronic cigarettes [email or web address] Information not available 03/06/2023 What is your exercise level? None [id number] Information not available 11/28/2022 Mental Status Question Answer Note LastModified by Organizat ion Details LastModified Time Do you feel stressed (tense, restless, nervous, or anxious, or unable to sleep at night)? [id number] [email or web address] Information not available 03/06/2023 Do you have difficulty concentrating, remembering or making decisions? Yes difficulty concentrating [email or web address] Information not available 03/06/2023 Family History Relationship Description Onset Age of this Age Resolved Age Notes LastModified by Organization Details LastModified Time Mother Hypertensive disorder [id number] Not available 11/28/2022 04:43:24 Brother Heart disease [id number] [id number] Not available 11/28/2022 04:43:24 Brother Parkinson's disease [email or web address] Not available 2022 15:39:55 Brother Malignant tumor of tonsil deceas ed [email or web address] Not available 03/06/2023 15:39:55 Father History of emphysema [email or web address] Not available 2022 15:39:55 Medical History Condition Response NERVE DISEASE N BLINDNESS N RHEUMATIC FEVER N KIDNEY STONES N BLADDER PROBLEMS N MRSA N OTHER # 1 Y POLIO N LUNG DISEASE/DISORDER N COPD N RADIATION / CHEMOTHERAPY Y Other # 2 N BLOOD DISEASES N EAR OR HEARING PROBLEMS N MUMPS N BOWEL PROBLEMS N DEPRESSION (INCLUDING POST ) N STROKE/TIA N THYROID DISEASE Y ULCERS N BENIGN PROSTATIC HYPERPLASIA N MEASLES N MYOCARDIAL INFARCTION N OBESITY N GERD/NAUSEA N ANEURYSM N URINARY/BLADDER/KIDNEY PROBLEMS N CORONARY ARTERY DISEASE (CAD) Y ADDICTION CONCERNS N ENDOMETRIOSIS N Impotence N USE OF BLOOD THINNERS Y SKIN PROBLEMS Y GASTROINTESTINAL DISORDER N PERIPHERAL VASCULAR DISEASE N MUSCLE,JOINT OR BONE PROBLEMS N GASTROINTESTINAL BLEEDING N BLOOD CLOTS N ASTHMA Y CATARACTS N ERECTILE DYSFUNCTION N VARICOSITIES N GI PROBLEMS N Low Testosterone N INFERTILITY N AIDS/HIV N CHEMOTHERAPY / RADIATION N LIVER DISEASE N MALE HYPOGONADISM N HYPERTENSION Y Deficiency N TOURETTE'S N ANXIETY DISORDER Y BLOOD TRANSFUSION N ANEMIA/BLOOD DISORDER N CHRONIC EAR INFECTIONS N BRONCHITIS N TUBERCULOSIS N GLAUCOMA N FOOT PROBLEM N DIVERTICULITIS Y SLEEP APNEA N CHICKENPOX N INFECTIOUS DISEASE N HEART ARRHYTHMIA N PROSTATE N INSOMNIA N HIGH CHOLESTEROL / HYPERLIPIDEMIA Y HYPERTHYROIDISM N EYE PROBLEMS N EDEMA N CHRONIC PAIN SYNDROME N HYPOTHYROIDISM Y CAROTID BLOCKAGE N CONSTIPATION N BACK / NECK PROBLEMS N HAVE YOU BEEN HOSPITALIZED OR SEEN IN [facility] IN THE PAST YEAR ? N ATHEROSCLEROSIS N BREAST PROBLEMS N DIALYSIS N ECZEMA N OSTEOPOROSIS N ARTHRITIS Y APPENDICITIS N DIABETES, TYPE N BAD TEETH N ENT N HEARTBURN / REFLUX Y AUTISM SPECTRUM DISORDER (ASD) N HEPATITIS / LIVER DISEASE N GOUT N SLEEP DISORDER N ALZHEIMER'S DISEASE N Brain Problems N HERPES N DEMENTIA N HEADACHES/MIGRAINES Y SEIZURES/EPILEPSY N VASCULAR DISEASE N PACEMAKER N Blood Disorder Y DIZZINESS N HEART DISEASE/HEART PROBLEMS Y KIDNEY DISEASE N MULTIPLE SCLEROSIS N CARDIAC ARRHYTHMIA N CANCER: SPECIFY Y ATRIAL FIBRILLATION N Gall Stones N PULMONARY EMBOLISM N AUTOIMMUNE DISEASE N Gynecological History Statement/Question Response Date of Last Mammogram 09/18/2019 Most Recent Bone Density 10/12/2019 Date of Last Pap Smear 05/15/2011 Current Control Method Menopause Age at Menarche 8 Most Recent Mammogram 09/17/2019 Breast Problems hx of breast cancer Obstetrics History GPAL:G 2 P 2 0 0 2 Type Value Full Term 2 Living 2 Total 2 Immunizations Vaccine Type Date Status Note Provider Nam e and Address Organization Details Recorded Time Influenza, high-dose, trivalent, PF 0 completed Not Available [facility] 11/07/2023 07:59:30 Influenza, high-dose, trivalent, PF 9 completed Not Available [facility] 11/07/2023 07:59:30 influenza, unspecified formulation 8 completed Not Available [facility] 11/07/2023 07:59:30 COVID-19, mRNA, LNP-S, PF, 30 mcg/0.3 mL dose 1 completed Not Available [facility] 11/07/2023 07:59:30 COVID-19, mRNA, LNP-S, PF, 30 mcg/0.3 mL dose 1 completed Not Available [facility] 11/07/2023 07:59:30 Influenza, split virus, quadrivalent, preservative 4 completed Not Available [facility] 11/07/2023 07:59:30 Influenza, high-dose, trivalent, PF 7 completed Not Available [facility] 11/07/2023 07:59:30 Influenza, high-dose, trivalent, PF 6 completed Not Available [facility] 11/07/2023 07:59:31 Pneumococcal conjugate PCV 13 6 completed Not Available [facility] 11/07/2023 07:59:30 Influenza, split virus, trivalent, PF 4 completed Not Available [facility] 11/07/2023 07:59:31 Past Encounters Encounter ID Performer Location Encounter Start Date Encounter Closed Date Diagnosis/Indication Diagnosis SNOMED-CT Code Diagnosis ICD10 Code Diagnosis Note [id number] Christopher Duque MD [facility] [place] [address] [place] [address], [place] [address] 01/30/2021 00:00:00 01/30/2021 16:47:25 [id number] S_[facility]_[place] _ATHENA_M IGRATION_ DEFAULT_1 _1 , 02/02/2021 00:00:00 02/02/2021 14:40:26 [id number] Casey Neff MD [facility] Internal [place] [address] [place] [address] y , [place] [address] 02/21/2021 00:00:00 02/21/2021 22:41:02 [id number] Casey Neff MD [facility] Internal [place] [address] [place] [address] y , [place] [address] 05/30/2021 00:00:00 06/05/2021 13:02:14 [id number] Christopher Duque MD [facility] [place] [address] [place] [address] 06/02/2021 00:00:00 06/02/2021 16:26:44 [id number] Casey Neff MD [facility] Internal [place] [address] [place] [address] y , [place] [address] 06/08/2021 00:00:00 06/08/2021 21:08:02 [id number] Casey Neff MD [facility] Internal [place] [address] [place] [address] [place] [address] 06/29/2021 00:00:00 07/21/2021 22:11:51 [id number] Casey Neff MD [facility] Internal [place] [address] [place] [address] [address] [place] [address] 08/10/2021 00:00:00 08/12/2021 13:47:54 [id number] Casey Neff MD [facility] Internal Med [place] [address] [place] [address] [place] [address] 10/24/2021 00:00:00 10/29/2021 17:45:12 [id number] Christopher Duque MD [facility] [place] [address] [place] [address] 11/21/2021 00:00:00 11/21/2021 17:11:38 [id number] Casey Neff MD [facility] Internal Med [address] [address] 01/02/2022 00:00:00 01/20/2022 16:05:58 [id number] Casey Neff MD [facility] Internal [place] [address] [place] [address] y , [place] [address] 01/09/2022 00:00:00 02/10/2022 17:29:04 [id number] Casey Neff MD [facility] [place] [address] [place] [address] y , [place] [address] 03/20/2022 00:00:00 03/20/2022 15:08:20 [id number] Christopher Duque MD [facility] [place] [address] [place] [address] 05/21/2022 00:00:00 05/21/2022 20:18:38 [id number] Casey Neff MD [facility] Internal [place] [address] [place] [address] [place] [address] 06/19/2022 00:00:00 06/24/2022 13:50:59 [id number] Casey Neff MD [facility] Internal [place] [address] [place] [address] [place] [address] 10/11/2022 00:00:00 10/11/2022 22:44:34 [id number] Casey Neff MD [facility] Internal Med [place] [address] [facility] y , [place] [address] 02/14/2023 14:51:53 02/14/2023 15:53:57 Benign essential hypertension 4581753 I10 Coronary arteriosclerosis 44638272 I25.10 Hypothyroidism 38286781 E03.9 Pure hypercholesterolemia 488076312 E78.00 Asthma 785049304 J45.90 9 [id number] Christopher Duque MD [facility] [place] [address] [place] [address] 03/06/2023 15:37:08 03/06/2023 16:59:51 Prediabetes 501806768 R73.03 a1c of 5.8%- discussed glucose one support as patient wishes to stay away from pharmacoth erapy such as metformin. Recommende d she incorporat e natural insulin genetics physician s such as pears, apples, cinnamon, swapna and sweet potatoes to help mobilize her endogenous insulin. Recommende d up to 150 minutes of moderate level activity/e xercise weekly. Hypothyroidism 29086831 E03.9 FT4 in range- continue on LT4 125 mcg daily. She was reminded to take her LT4 on empty stomach with glass of water and wait one hour to eat or have her coffee in morning and up to 4 hours if ever taking any heartburn or reflux medication s to help optimize absorption . Discussed paleo like diet with restrictio n of GMOs to help with energy and to optimize absorption of vitamins and minerals and reduce inflammati on. Dyslipidemia 541047629 E 78.5 continue on statin therapy as LDL in range. 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 Renewal of prescription [id number] Z76.0 refill statin therapy. Spent up to 28 minutes preparing to see the patient (eg, review of tests), obtaining and/or reviewing separately obtained history, performing a medically appropriat e examinatio n and evaluation , counseling and educating the patient, ordering medication s, tests, along with documentin g clinical informatio n in the electronic health record, independen tly interpreti ng results and communicat ing results to the patient. RTC in 6 months. Patient was provided a handwritte n lab order which contains our fax number. If she chooses to go outside of the [facility] system to obtain labwork she was advised to provide our fax number and my informatio n to the lab she will be obtaining labwork from in order to have her labs properly forwarded over for me to review so there is no loss of follow up due to use of outside network. She was also advised to contact our clinic informing us that she has completed her labwork so we are aware we will need [facility] request her results be forwarded to us so I might have the ability to review and make further medical decision making in her case. She voiced understand ing. [id number] Casey Neff MD [facility] [address] [place] [address] [place] [address] 06/13/2023 15:39:16 06/13/2023 17:27:09 Benign essential hypertension 1469976 I10 Dyslipidemia 625359577 E 78.5 Hypothyroidism 27525183 E03.9 Anxiety 65212913 F41.9 Coronary arteriosclerosis 77339568 I25.10 [id number] Casey Neff MD [facility] [address] [place] [address] [place] [address] 10/22/2023 14:32:35 10/22/2023 17:49:15 Benign essential hypertension 7162046 I10 Asthma 097998645 J45.90 9 Anxiety 49518370 F41.9 Coronary arteriosclerosis 51604120 I25.10 Dyslipidemia 655645361 E 78.5 Hypothyroidism 69547864 E03.9 Health Concerns Section Related Observation LastModified by Organization Detai ls LastModified Time None Recorded Concern Status LastModified by Organization Details LastModified Time None Recorded Advance Directives Directive N: Payers Insurance Date Sequence Insurance Name Policy Number Policy Fraser Covered Member ID Fraser Member ID Guarantor Name 05/26/2024 1 [facility] (MEDICARE REPLACEMENT/A DVANTAGE - PPO) [id number] Jaylyn Chaparro [id number] Jaylyn Chaparro Notes Date Note Type Note Provider Name and Address Organization Details Recorded Time 3 text/html asthma stablehypertension no headache or dizzinessCAD no chesthypothyroid fluctuating energy no heat or cold intolerancedyslipidemia pretty good with dietthinks her memory gets bad sometimes Casey Neff MD [address], [place], [address], [facility] [employer] 02/23/2023 16:47:24 3 text/html 77 yo female comes in for follow up in management of prediabetes (A1C of 5.8%), hypothyroidism and dyslipidemia last seen in April at that time we continued natural insulin sensitizers We continued LT4 125 mcg daily and atorvastatin 30 mg daily. She hasn't done anything for her shoulder as of yet- she has labral tear of right shoulder and loss of cartilage. She has been putting off surgery. 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 She has to have her husbands help at home for daily cores. labs from 02/19/23:a1c of 5.8%glucose 103 mg/dLCr normalLFT lddcgi672/144/66/82FT4 of 1.50 ng/dLFT3 of 2.9 pg/mlTSH of 5.77 uIU/mL Christopher Duque MD [address], [place], [address], [facility] [email or web address] [facility] [employer] 03/06/2023 22:11:07 3 text/html asthma stablehypertension no headache or dizzinessCAD no chesthypothyroid fluctuating energy no heat or cold intolerancedyslipidemia pretty good with dietShe feels stronger Casey Neff MD [address], [place], [address], [facility] [email or web address] [facility] [employer] 06/16/2023 15:44:51 4 text/html Asthma has been doing fine. Anxiety stable. CAD no chest pain. Hypertension no headache or dizziness. Dyslipidemia trying to follow low-fat diet. Hypothyroid no heat or cold intolerance. GERD no nausea no vomiting. Arthritis waxes and wanes. Obesity hard for her to lose weight. Casey Neff MD [address], [place], [address], [place] [facility] 10/25/2023 21:18:46 OBGyn Episode No OBEpisode recorded.
[2025-03-30 14:55] LABS: Hematocrit 46.0 % (37.0-47.0); Hemoglobin 15.1 g/dL (12.0-15.0); Immature Granulocyte Percent A 0.2 % (0-0.5); Lymphocytes Absolute Auto 2.67 K/mm3 (0.9-3.2); Mean Corpuscular HGB Conc 32.8 g/dl (32-36); Mean Corpuscular Hemoglobin 28.9 pg (26-34); Mean Corpuscular Volume 88.1 fl (80-100); Nucleated Red Blood Cells Absolute Auto 0.000 K/mm3 (0.0-0.012); Nucleated Red Blood Cells Perc 0.0 % (0.0-0.2); Platelet Count Result 231 k/mm3 (150-375); Red Blood Count 5.22 M/mm3 (4.2-5.4); White Blood Count 8.1 K/mm3 (4.5-10.0)
[2025-03-30 16:27] LABS: Alanine Aminotransferase 39 U/L (6-35); Albumin Level 4.1 g/dL (3.5-5.1); Alkaline Phosphatase 82 U/L (38-126); Anion Gap 7 mmol/L (4-12); Aspartate Amino Transferase 78 U/L (14-36); Bilirubin,Total 0.6 mg/dL (0.2-1.3); Blood Urea Nitrogen 16 mg/dL (7-17); Calcium 9.6 mg/dL (8.4-10.2); Carbon Dioxide 25 mmol/L (22-30); Chloride 109 mmol/L (98-107); Estimated Glomerular Filt Rate 51; Glucose 106 mg/dL (65-110); Potassium 4.3 mmol/L (3.4-5.0); Sodium 141 mmol/L (137-145); Total Protein 7.5 g/dL (6.3-8.2)
[2025-03-30 16:39] LABS: Immunoglobulin A 193 mg/dL (70-400); Immunoglobulin G 1036 mg/dL (700-1600); Immunoglobulin M 81 mg/dL (40-230)
[2025-04-01 14:45] LABS: Kappa\\Lambda Light Chains 1.03 (0.26-1.65)
[2025-04-03 12:32] LABS: Albumin 3.6 g/dL (3.8-4.8); Gamma Globulin 1.0 g/dL (0.8-1.7)
== END 2025-03-30 14:33 | disposition home or self-care (01) ==
LOC: ANHLAB 14:33
PROVIDERS: PCP Internal Medicine; Visit Provider Internal Medicine Hematology & Oncology
DX: D72.9 Disorder of white blood cells, unspecified (principal)
CPT/HCPCS: 36415; 80053; 82784; 83521; 84155; 84165; 85025

== ENCOUNTER 2025-04-29 14:04 | Emergency (ER) | payer MEDICARE, SELFPAY ==
--- NOTE | ~2025-04-29 | XR_ITS ---
HISTORY: fall, pain COMPARISON: None TECHNIQUE: 3 views of the right knee were performed FINDINGS: No acute or subacute fracture, erosion, lytic or sclerotic lesion. Medial tibiofemoral joint space narrowing is identified. Small suprapatellar joint effusion is identified. The infrapatellar joint space is clear. IMPRESSION: Degenerative disease, without acute fracture or dislocation. Reviewed, dictated and finalized at location A.
--- NOTE | ~2025-04-29 | CT_ITS ---
EXAMINATION: CT cervical spine wo con DATE: 04/29/2025 16:06 INDICATION: Fall TECHNIQUE: Computed tomography (CT) of the cervical spine was performed without intravenous contrast. Automated exposure control and iterative reconstruction technique were employed. The dose-length pro duct was 423.97 mGy-cm. COMPARISON: None FINDINGS: Draining of the normal cervical lordosis which could be positional or due to muscle spasm. No spondyl olisthesis or facet subluxation. Vertebral body heights are normal. No fracture. Moderate disc height loss at C6-C7 with severe left-sided and moderate to severe right-sided uncovertebral osteoarthritis . There is mild disc height loss with multilevel mild bilateral uncovertebral osteoarthritis at the m ore cephalad cervical levels multilevel bilateral cervical facet osteoarthritis, severe on the right at C7-T1 and otherwise mild. Posterior disc osteophyte complex at C7-T1 contributing to mild central canal stenosis. Mild neural foraminal stenosis bilaterally at C6-7 and on the right at C7-T1. Athero sclerotic calcifications at the bilateral carotid bulbs. Cervical soft tissues are otherwise unremark able. Visualized apices of lungs are clear. IMPRESSION: 1. Mild to moderate cervical spondylosis. No acute osseous abnormality. Reviewed, dictated and finalized at location A.
--- NOTE | ~2025-04-29 | XR_ITS ---
HISTORY: fall COMPARISON: None TECHNIQUE: AP view of the pelvis was performed FINDINGS: Age-appropriate mineralization was detected. Significant degenerative disease within the visualized portion of the lumbar spine. Superior lateral joint space narrowing and sclerosis is identified within the bilateral femoral aceta bular joint spaces. Joint space narrowing and sclerosis is present within the pubic symphysis. No acute fracture or dislocation is appreciated. IMPRESSION: Degenerative disease, without acute fracture or dislocation, as detailed above. Reviewed, dictated and finalized at location A.
--- NOTE | ~2025-04-29 | CT_ITS ---
History: Fall PROCEDURE: CT head without contrast. COMPARISON: 02/07/2024 TECHNIQUE: Axial imaging of the head performed from the skull base to the vertex without IV contrast. Sagittal a nd coronal reformations obtained. DLP: 681 mGy-cm FINDINGS: The ventricles are enlarged. The dilatation of the ventricles is proportional to the degree of sulcal prominence, not uncommon in the senescent brain. Decreased attenuation is identified within the periventricular white matter, likely secondary to micr ovascular ischemic disease, in a patient of this age. There is no mass, mass effect or midline shift. There is no abnormal extra-axial fluid collection or intracranial hemorrhage. Visualized paranasal sinuses are clear. The mastoid air cells are well aerated. No acute displaced fractures within the overlying cranium. Impression: No acute intracranial hemorrhage or suspicious mass effect. Reviewed, dictated and finalized at location A. Impression: No acute intracranial hemorrhage or suspicious mass effect.
[2025-04-29 14:09] VITALS: BP 179/61; PULSE 78; RESP 16; TEMP 36.8; O2SAT 99
--- OUTSIDE RECORDS SUMMARY | 2025-04-29 14:09 | XMS_ITS | Patient Health Record ---
Author Organization [facility] Address [address] [facility] [address] [place] [address] Care Team Providers Care Television Receiver Analyzer Name Role Phone Ermias Neff MD Primary [...] Problem Gastro-esophagea l reflux disease without esophagitis ([id number]) Gastro-esophage al reflux disease without esophagitis (K21.9) Active confirmed Plan Of Treatment No Information Insurance Providers Payer Name Payer Address Payer Phone Subscriber Number Group Number Insured Name Patient Relationship to Insured Coverage Start Date Coverage End Date [employer] Medicare Advantage PPO [address] [address] [place] [address] [phone] [id number] Jaylyn Chaparro Self - patient is the insured Medical (General) History Medical History History ICD Code breast cancer with mastectomy arthritis asthma anxiety gastroesophageal reflux disease (GERD) gallstones diverticulosis migraine headaches Surgical History Surgery Date(Month/Year) tubal ligation mastectomy 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
--- OUTSIDE RECORDS SUMMARY | 2025-04-29 14:09 | XMS_ITS | Clinical Summary ---
Author Organization [facility] [employer] Address [address] [place] [address] Care Team Providers Care Property Management Assistant Name Role Phone Ermias Neff MD Primary Care Provider [phone] Source Comments [facility],non-owned Affiliates and Associated Physician Practices is amultiple site organization consisting of ambulatory clinics and hospital sitesin [place], [place], [place] and [place]. This disclosure is being madepursuant to the Care Everywhere program and may not contain all information available regarding this patient. 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 Gender Identity Not on file Sexual Orientation Not on file Last Filed Vital Signs Vital Sign Reading Time Taken Comments Blood Pressure 140/85 11/14/2017 4:15 PM DISPLAY COORDINATOR Pulse - - Temperature - - Respiratory Rate - - Oxygen Saturation - - Inhaled Oxygen Concentration - - Weight 100.2 kg (221 lb) 11/14/2017 4:15 PM DISPLAY COORDINATOR Height 152.4 cm (5') 11/14/2017 4:15 PM DISPLAY COORDINATOR Body Mass Index 43.16 11/14/2017 4:15 PM DISPLAY COORDINATOR Plan of Treatment Health Maintenance Due Date [...] MEDICARE AWV CALENDAR YEAR 2024 INFLUENZA VACCINE (#1) 2025 , 07/28/2020, 07/31/2019, Additional history exists HEPATITIS B [...] age to complete this topic Insurance MEDICARE [facility] [place] [address] [facility] MANAGED MEDICARE ADV [facility] MANAGED MEDICARE ADV Care Teams Property Management Assistant Relationship Specialty Start Date End Date Ermias Neff MD PCP - General Internal Medicine 11/14/17
--- OUTSIDE RECORDS SUMMARY | 2025-04-29 14:09 | XMS_ITS | Continuity of Care Document ---
Author Organization [facility] Address [address] [place] [address] [place] [address] Phone Care Team Providers Care General Administrator Name Role Phone Willie Boyer Unavailable Unavailable [...] Copied on Encounter Office/outpati ent Visit, Est [facility], [address], [place], [place], [id number], [place] tel:[phone] [facility] No Information 8-200 9 Merlin Tapia. [address] , [address], [place], [address], [place]. tel:[phone] Referring Provider: Morgan Tse, [address] [place], [address]. tel:[phone] [facility], [address], [place], [place], [address], [place] tel:[phone] [facility] No Information Jun-1 5-200 9 Patricia Mora. [address] [place], [address], [place]. tel:[phone] Referring Provider: Morgan Tse, [address] [place], [address]. tel:[phone] [facility], [address], [place], [place], [address], [place] tel:[phone] [facility] No Information Apr-1 3-200 9 Patricia Mora. [address] [place], [address], [place]. tel:[phone] [facility], [address], [place], [place], [id number], [place] tel:[phone] [facility] No Information 1 6-200 9 Patricia Mora. [address] [place], [address], [place]. tel:[phone] Referring Provider: Morgan Tse, [address] [place], [address]. tel:[phone] [facility], [address], [place], [place], [address], [place] tel:[phone] [facility] No Information Mar-0 2-200 9 Patricia Mora. [address] [place], [address], [place]. tel:[phone] [facility], [address], [place], [place], [address], [place] tel:[phone] [facility] No Information Alfredo-2 5-200 9 Patricia [address]a. [address] [place], [address], [place]. tel:[phone] Referring Provider: Morgan Tse, [address] [place], [address]. tel:[phone] [facility], [address], [place], [place], [id number], [place] tel:[phone] [facility] [place] No Information 9 Patricia Mora. [address] [place], [address], [place]. tel:[phone] Referring Provider: Vadim Rogers OD Bhupendra, [address] [place] [address] [address], [place], [place], [facility] [place]. tel:[phone] [facility], [address] [place] [address] [address], [place], [place], [address], [place] tel:[phone] [facility] No Information 0 8-200 9 Rogers OD Vadim. [facility] [facility] , [address], [place], [address], [place]. tel:[phone] [facility], [address], [place], [place], [address], [place] tel:[phone] [facility] [place] No Information 9-200 8 Randykum Stuart. [address], [place], [place], [address], [place]. tel:[phone] [facility], [address], [place], [place], [address], [place] tel:[phone] [facility] No Information 3-200 7 Shannan Davidson. [address], [address], [place], [place], [address], [place]. tel:[phone] Family History Family Member Type Diagnosis Age At Onset No Information Payers Payer name Insurance type Covered green party ID Authoriza tion(s) Medicare [facility] [id number] [facility] Custom Care [id number] Social History Type Description Quantity Date Captured [...]
--- OUTSIDE RECORDS SUMMARY | 2025-04-29 14:09 | XMS_ITS | Clinical Summary ---
Author Organization [address] Address [address] [place] [address] Care Team Providers Care Supervisor Photostat Name Role Phone Ermias Neff MD Primary Care Provider [phone] Doug Be MD Unavailable Allergies Active Allergy [...] cT1, cN0, cM0, G1, ER: Not assessed, AR: Not assessed, HER2: Not assessed - Signed by Love Aguilera, PhD on 10/06/2018 Pathologic stage from 11/02/2005: pT1b, pN0(sn), cM0, G1, ER: Positive, AR: Positive, HER2: Not assessed - Signed by Love Aguilera, PhD on 10/06/2018 Encounters Date Type Department Care Team Description 04/13/2025 Telephone [facility] [address] [place] [address] [address], [place] [address] Ermias Paige MD 03/29/2025 Telephone [facility] [address] [place] [address] Lyudmila Villanueva RN 03/05/2025 4:29 PM CDT - 03/05/2025 11:59 PM CDT Hospital Encounter [facility] [address] [place] [address] Ermias Paige MD Memory impairment Discharge Disposition: Discharge to home or self care 02/24/2025 Results Follow-Up [facility] [address] [place] [address] [address] [address] Ermias Paige MD Vitamin B12, Vitamin B6, Folate, Additional followed-up results: 2 02/15/2025 2:00 PM CDT Lab [address] Memory impairment 02/15/2025 1:00 PM CDT Office Visit [facility] [address] [place] [address] [address] [address] Ermias Paige MD Memory impairment (Primary Dx); [...] on file 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 Results were compared to 10th and 90th percentiles of healthy age-/gender-matched population. Graphs were sent to Nginx and Lanx PACS. The protocol specifically includes FLAIR to [...] hydrocephalus. Normal flow voids seen within the [place]. Deep venous sinuses are patent. The paranasal sinuses are normal. The visualized portions of the mastoids are unremarkable. Bilateral cataract surgery. Normal flow voids are demonstrated in the carotid arteries and basilar artery. QUANTITATIVE ASSESSMENT: Assessment of hippocampal volumes: Quantitative assessment was performed using [employer] and is reported. Hippocampal volume: Left side: [...] images of the brain were postprocessed on [employer] to generate segmented brain volumes using commercial software. Results were compared to 10th and 90th percentiles of healthy age-/gender-matched population. Graphs were sent to Nginx and Lanx PACS. The protocol specifically includes FLAIR to [...] hydrocephalus. Normal flow voids seen within the [place]. Deep venous sinuses are patent. The paranasal sinuses are normal. The visualized portions of the mastoids are unremarkable. Bilateral cataract surgery. Normal flow voids are demonstrated in the carotid arteries and basilar artery. QUANTITATIVE ASSESSMENT: Assessment of hippocampal volumes: Quantitative assessment was performed using [employer] and is reported. Hippocampal volume: Left side: [...] (ABNORMAL) Vitamin B6 (02/15/2025 2:06 PM CDT) Pathologist [facility] Pyridoxal phosphate (Vit B6) 2(L) 5 - 50 mcg/L [place] ref Lab Comment: ADDITIONAL INFORMATION This test was developed and its performance characteristics determined by [facility] in a manner consistent with CLIA requirements. This test has not been cleared or approved by the U.S. Food and Drug Administration. Test Performed by: [facility] [place] [address] Logistic Manager: Elise Acevedo Ph.D.; CLIA# [id number] Blood 02/15/2025 2:06 PM CDT 02/15/2025 3:32 PM CDT Ermias Paige MD LAB BLOOD ORDERABLES Fi nal Result ANUPAM ALVES ([place]) 1 [facility] Department [place] [address] [place] ref Lab * (ABNORMAL) Thyroid Function [place] (02/15/2025 2:03 PM CDT) Pathologist [facility] TSH 5.35(H) 0.30 - 4.20 mcIUnit/mL Blood 02/15/2025 2:03 PM CDT 02/15/2025 3:36 PM CDT Ermias Paige MD LAB BLOOD ORDERABLES Fi nal Result ANUPAM ALVES ([place]) 1 [facility] [place] [address] * T4, free (02/15/2025 2:03 PM CDT) Free T4 1.37 0.90 - 1.70 ng/dL Blood 02/15/2025 2:03 PM CDT 02/15/2025 3:36 PM CDT Narrative YVONNESERA ALVES ([place]) - 02/15/2025 6:31 PM CDT This test was reflexed from a TSH result. Ermias Paige MD LAB BLOOD ORDERABLES Fi nal Result Performing Organization Address [facility] Co de Phone Number ANUPAM ALVES ([place]) 1 [facility] [place] [address] * Folate (02/15/2025 2:03 PM CDT) Pathologist [facility] Folic acid 8.3 >=5.0 ng/mL Comment:Slightly Hemolyzed S pecimen. Results may be affected. Blood 02/15/2025 2:03 PM CDT 02/15/2025 3:36 PM CDT Ermias Paige MD LAB BLOOD ORDERABLES Fi nal Result Performing Organization Address City/[facility]/ZIP Co de Phone Number ANUPAM ALVES ([place]) 1 [facility] [place] [address] * Vitamin B12 (02/15/2025 2:03 PM CDT) Vitamin B12 449 230 - 1,250 pg/mL Blood 02/15/2025 2:03 PM CDT 02/15/2025 3:36 PM CDT Ermias Paige MD LAB BLOOD ORDERABLES Fi nal Result [facility] ([place]) 1 [facility] Department [place] [address] from Last 3 Months Insurance [facility] MEDICARE ADVANTAGE MEDICARE [facility] [place] [address] MEDICARE [facility] MEDICARE ADVANTAGE [facility] MEDIC[facility] ADVANTAGE Advance Directives For more information, please contact: [phone] * Full Code (Latest Code Status on File) Date Activated Date Inactivated Comments 08/02/2021 9:42 AM 08/02/2021 5:28 PM Care Teams Supervisor Photostat Relationship Specialty Start Date End Date Ermias Neff MD PCP - General 09/29/17 Doug Be MD [address] [facility] # [address] [place] [address] Radiation Oncologist Radiation Oncology 10/06/18
--- OUTSIDE RECORDS SUMMARY | 2025-04-29 14:09 | XMS_ITS | Referral Summary ---
Author Organization [place] [id number] [facility] Address [address] [place] [address] Care Team Providers Care Jewel Bearing Turner Name Role Phone Ermias Neff MD Primary Care Provider [phone] Doug Be MD Unavailable Encounters Date Type Department Care Team Description 04/13/2025 Telephone [facility] [address] [place] [address] [address] [address] Ermias Paige MD 03/29/2025 Telephone [facility] 1 [place] [address] Lyudmila Villanueva RN 03/05/2025 4:29 PM CDT - 03/05/2025 11:59 PM CDT Hospital Encounter [facility] [address] [place] [address] Ermias Paige MD Memory impairment Discharge Disposition: Discharge to home or self care 02/24/2025 Results Follow-Up [facility] [address] [place] [address] [address] [address] Ermias Paige MD Vitamin B12, Vitamin B6, Folate, Additional followed-up results: 2 02/15/2025 2:00 PM CDT Lab [address] Memory impairment 02/15/2025 1:00 PM CDT Office Visit [facility] [address] [place] [address] [address] [address] Ermias Paige MD Memory impairment (Primary Dx); [...] cT1, cN0, cM0, G1, ER: Not assessed, IN: Not assessed, HER2: Not assessed - Signed by Love Aguilera, PhD on 10/06/2018 Pathologic stage from 11/02/2005: pT1b, pN0(sn), cM0, G1, ER: Positive, IN: Positive, HER2: Not assessed - Signed by [...] on file 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 Results were compared to 10th and 90th percentiles of healthy age-/gender-matched population. Graphs were sent to [employer] and [employer] PACS. The protocol specifically includes FLAIR to [...] hydrocephalus. Normal flow voids seen within the [place]. Deep venous sinuses are patent. The paranasal sinuses are normal. The visualized portions of the mastoids are unremarkable. Bilateral cataract surgery. Normal flow voids are demonstrated in the carotid arteries and basilar artery. QUANTITATIVE ASSESSMENT: Assessment of hippocampal volumes: Quantitative assessment was performed using [employer] and is reported. Hippocampal volume: Left side: [...] images of the brain were postprocessed on [employer] to generate segmented brain volumes using commercial software. Results were compared to 10th and 90th percentiles of healthy age-/gender-matched population. Graphs were sent to [employer] and [employer] PACS. The protocol specifically includes FLAIR to [...] hydrocephalus. Normal flow voids seen within the [place]. Deep venous sinuses are patent. The paranasal sinuses are normal. The visualized portions of the mastoids are unremarkable. Bilateral cataract surgery. Normal flow voids are demonstrated in the carotid arteries and basilar artery. QUANTITATIVE ASSESSMENT: Assessment of hippocampal volumes: Quantitative assessment was performed using [employer] Via and is reported. Hippocampal volume: Left [...] by: Will Arredondo M.D. Ermias Paige MD [facility] Edit ed Result - Final * (ABNORMAL) Vitamin B6 (02/15/2025 2:06 PM CDT) Pyridoxal phosphate (Vit B6) 2(L) 5 - 50 mcg/L [place] ref Lab Comment: ADDITIONAL INFORMATION This test was developed and its performance characteristics determined by [facility] in a manner consistent with CLIA requirements. This test has not been cleared or approved by the U.S. Food and Drug Administration. Test Performed by: [facility] [address] [place] [address] Smelter Charger: Elise Acevedo Ph.D.; CLIA# [id number] Blood 02/15/2025 2:06 PM CDT 02/15/2025 3:32 PM CDT Ermias Paige MD LAB BLOOD ORDERABLES Fi nal Result ANUPAM ALVES ([place]) 1 [place] [address] [place] ref Lab * (ABNORMAL) Thyroid Function [place] (02/15/2025 2:03 PM CDT) TSH 5.35(H) 0.30 - 4.20 mcIUnit/mL Blood 02/15/2025 2:03 PM CDT 02/15/2025 3:36 PM CDT us Ermias Paige MD LAB BLOOD ORDERABLES Fi nal Result Performing Organization Address [facility] Co de Phone Number ANUPAM ALVES ([place]) 1 [facility] [place] [address] * T4, free (02/15/2025 2:03 PM CDT) Free T4 1.37 0.90 - 1.70 ng/dL Blood 02/15/2025 2:03 PM CDT 02/15/2025 3:36 PM CDT Narrative YVONNESERA ALVES ([place]) - 02/15/2025 6:31 PM CDT This test was reflexed from a TSH result. Ermias Paige MD LAB BLOOD ORDERABLES Fi nal Result Performing Organization Address City/[facility]/ZIP Co de Phone Number ANUPAM ALVES ([place]) 1 [facility] [place] [address] * Folate (02/15/2025 2:03 PM CDT) Folic acid 8.3 >=5.0 ng/mL Comment:Slightly Hemolyzed S pecimen. Results may be affected. Blood 02/15/2025 2:03 PM CDT 02/15/2025 3:36 PM CDT Ermias Paieg MD LAB BLOOD ORDERABLES Fi nal Result [facility] ([place]) 1 [facility] [place] [address] * Vitamin B12 (02/15/2025 2:03 PM CDT) Pathologist [facility] Vitamin B12 449 230 - 1,250 pg/mL Blood 02/15/2025 2:03 PM CDT 02/15/2025 3:36 PM CDT Ermias Paige MD LAB BLOOD ORDERABLES Fi nal Result [facility] ([place]) 1 [facility] [place] [address] from Last 3 Months Insurance [facility] MEDICARE ADVANTAGE MEDICARE [facility] MEDICARE [facility] MEDICARE ADVANTAGE [facility] MEDICARE ADVANTAGE Advance Directives For more information, please contact: [phone] * Full Code (Latest Code Status on File) Date Activated Date Inactivated Comments 08/02/2021 9:42 AM 08/02/2021 5:28 PM Care Teams Jewel Bearing Turner Relationship Specialty Start Date End Date Ermias Neff MD PCP - General 09/29/17 Doug Be MD [address] [facility] # LL LL [address] [place] [address] Radiation Oncologist Radiation Oncology 10/06/18
--- OUTSIDE RECORDS SUMMARY | 2025-04-29 14:09 | XMS_ITS | Encounter Summary ---
Author Organization [facility] Address [address] [facility] [place] [address] Care Team Providers Care Peoplesoft Financials Name Role Phone Ermias Neff MD Primary Care Provider [phone] Encounter Details Date Type Department Care Team (Late st Contact Info) Description 06/10/2024 Lab Requisition [facility] - [facility]erm[facility] Lab [address] [facility], [place] [address] Shadia Davis MD [address] [place] [address] [place] [address] Basal cell carcinoma of skin of right upper limb, including shoulder Social History Tobacco Use Types Packs/Day Years Used Date Smoking Tobacco: Never Smokeless Tobacco: Never Comments Unknown Sex and Gender Information Value Date Recorded Sex Assigned at Not on file 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 The epidermal surface is unremarkable. The [...] characteristic determined by the Dermatopathology Laboratory at [facility], directed by Dr. Shavonne Keane. These tests need not be, and therefore are not, approved by the [place] Food and Drug Administration. The tests are used for clinical purposes. Billing Codes Specimen Charges Stain Charges 47196 1 3:24 PM CDT DERMATOPATHOLOGY LABORATORY Embedded Images 3:24 PM CDT DERMATOPATHOLOGY LABORATORY Pathology/Cytolog y TISSUE SPECIMEN FROM SKIN / Unknown 06/10/2024 06/11/2024 1:11 PM CDT us Shadia Davis MD LAB - PATHOLOGY/CYTOLOGY ORDERAB LES Final Result DERMATOPATHOLOGY LABORATORY [facility] - Department of Dermatology [address], [address] [phone] documented in this encounter Visit Diagnoses Diagnosis Basal cell carcinoma of skin of right upper limb, including shoulder Basal cell carcinoma of skin of upper limb, including shoulder documented in this encounter Care Teams Pe[employer]ancials Relationship Specialty Start Date End Date Ermias Neff MD PCP - General Internal Medicine 11/14/17 documented as of this encounter
--- OUTSIDE RECORDS SUMMARY | 2025-04-29 14:10 | XMS_ITS | Clinical Summary ---
Author Organization [facility] Address [address] [place] [address] Care Team Providers Care Residential Energy Auditor Name Role Phone Ermias Neff MD Primary Care Provider [phone] Allergies Active Allergy Reactions Criticality Noted Date Comments Diclofenac Unknown 10/06/2019 Erythromycin Nausea and Vomiting Low 05/03/2011 Erythromycin Base Hives High 10/06/2019 Iodinated Contrast Media Hives High 10/06/2019 Iohexol Nausea and Vomiting Low 05/03/2011 Naproxen Swelling,Unknown Medium 2015 Sulfa (Sulfonamide Antibiotics) Swelling,Hives High 01/29/2013 Medications albuterol (ACCUNEB) 1.25 mg/3 mL Solution for Nebulization Act josselin pantoprazole (PROTONIX) 40 mg Tablet, Delayed Release (E.C.) TAKE 1 TABLET BY MOUTH EVERY DAY 06/26/20 20 Active metFORMIN (GLUCOPHAGE XR) 500 mg Extended Release 24 hour tablet metformin ER 500 mg tablet,extended release 24 hr Active furosemide (LASIX) 20 mg tablet TAKE 1 TABLET BY MOUTH EVERY DAY 05/15/20 20 Active clopidogreL (PLAVIX) 75 mg Tablet TAKE 1 TABLET BY MOUTH EVERY DAY 05/29/20 20 Active ALPRAZolam (XANAX) 0.25 mg tablet Take 0.25 mg by mouth 1 time daily as needed. 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 Encounters Date Type Department Care Team Description 04/19/2025 Abstract [facility] Hematology [facility] [address] [place] [address] Pérez Ford MD 04/14/2025 External Device Data STL ABSTRACTION Provider, Abstract 04/14/2025 External Device Data STL ABSTRACTION Provider, Abstract 04/14/2025 External Device Data STL ABSTRACTION Provider, Abstract 04/13/2025 External Device Data STL ABSTRACTION Provider, Abstract 04/12/2025 2:30 PM CDT Office Visit [facility] Oncology [facility] [address] [place] [address] Pérez Ford MD Plasma cell disorder (Primary Dx) 03/31/2025 Orders Only [facility] Oncology [facility] [address] [place] [address] Pérez Ford MD 03/17/2025 External Device Data STL ABSTRACTION Provider, Abstract 03/16/2025 External Device Data STL ABSTRACTION Provider, Abstract 02/18/2025 External Device Data STL ABSTRACTION Provider, Abstract 02/16/2025 External Device Data STL ABSTRACTION Provider, Abstract from Last 3 Months Family History Medical History Relation Name Comments Cancer Brother 1 Cancer Brother 3 Heart Attack Father Heart Disease Father Heart Disease Mother Heart Failure Mother Heart Failure Son Relation Name Status Comments Brother 1 Alive Brother 2 Alive Brother 3 Daughter Alive Father Mother Son Social History Tobacco Use Types Packs/Day Years Used Date Smoking Tobacco: Never Smokeless Tobacco: Never Tobacco Cessation:Counseling Given: Not Answered Alcohol Use Standard Drinks/Week Comments Never 0 (1 standard drink = 0.6 oz pur e alcohol) Comments Unknown Sex and Gender Information Value Date Recorded Sex Assigned at Not on file Legal Sex Female 2:38 PM CDT Gender Identity Not on file Sexual Orientation Not on file Last Filed Vital Signs Vital Sign Reading Time Taken Comments Blood Pressure 161/80 04/12/2025 2:18 PM CDT Pulse 82 04/12/2025 2:14 PM CDT Temperature 36.7 C (98.1 F) 04/12/2025 2:14 PM CDT Respiratory Rate 16 04/12/2025 2:14 PM CDT Oxygen Saturation 96% 04/12/2025 2:14 PM CDT Inhaled Oxygen Concentration - - Weight 100.2 kg (220 lb 12.8 oz) 04/12/2025 2:14 PM CDT Height 152.4 cm (5') 04/10/2022 2:07 PM CDT Body Mass Index 43.12 04/10/2022 2:07 PM CDT Plan of Treatment Upcoming Encounters Date Type Department Care Team (Late st Contact Info) Description 04/18/2026 1:00 PM CDT Office Visit [facility] and [facility]ology - [place] [address] [facility] [address] [place] [address] Pérez Ford MD [address] [facility] [address] [place] [address] Health Maintenance Due Date Last Done Comments DTAP/TDAP/TD VACCINES (1 - Tdap) 1962 ZOSTER VACCINE (1 of 2) 1993 PNEUMOCOCCAL VACCINE 50+ YEA RS (2 of 2 - PPSV23, PCV20, or PCV21) 02/07/2016 12/13/2015 RSV VACCINE (60+ or ) (1 - 1-dose 75+ series) 2018 OSTEOPOROSIS SCREENING 10/12/2024 10/12/2019 INFLUENZA VACCINE (#1) 2025 1, 07/28/2020, 07/28/2020, Additional history exists Procedures Procedure Name Priority Date/Time Associated Diagnosis Comments COMPREHENSIVE METABOLIC PANEL Routine 03/30/2025 8:17 AM CDT from Last 3 Months Results * COMPREHENSIVE METABOLIC PANEL (03/30/2025 8:17 AM CDT) Blood us Pérez Ford MD CHEMISTRY ORDERABLES Final Resu lt from Last 3 Months Insurance [facility] [id number] Care Teams Residential Energy Auditor Relationship Specialty Start Date End Date Ermias Neff MD [address] [place] [address] PCP - General Internal Medicine 07/12/20
--- OUTSIDE RECORDS SUMMARY | 2025-04-29 16:22 | XMS_ITS | Clinical Summary ---
Author Organization [facility] Address [address] [place] [address] Care Team Providers Care Polysomnography Technologist Name Role Phone Ermias Neff MD Primary Care Provider [phone] Allergies Active Allergy Reactions Criticality Noted Date [...] Type Department Care Team Description 04/19/2025 Abstract [facility] [address] [place] [address] Pérez Ford MD 04/14/2025 External Device Data STL ABSTRACTION Provider, Abstract 04/14/2025 External Device Data STL ABSTRACTION Provider, Abstract 04/14/2025 External Device Data STL ABSTRACTION Provider, Abstract 04/13/2025 External Device Data STL ABSTRACTION Provider, Abstract 04/12/2025 2:30 PM CDT Office Visit [facility] Oncology [facility] [address] [place] [address] Pérez Ford MD Plasma cell disorder (Primary Dx) 03/31/2025 Orders Only [facility] Oncology [facility] [address] [place] [address] Pérez Ford MD 03/17/2025 External Device Data [...] Description 04/18/2026 1:00 PM CDT Office Visit [facility] Oncology and Hematology - [place] [address] [facility] [address] [place] [address] Pérez Ford MD [address] [facility] [address] [place] [address] Health Maintenance Due Date Last [...] Resu lt from Last 3 Months Insurance [facility] [id number] Care Teams Polysomnography Technologist Relationship Specialty Start Date End Date Ermias Neff MD [address] [place] [address] PCP - General Internal Medicine 07/12/20
--- OUTSIDE RECORDS SUMMARY | 2025-04-29 16:22 | XMS_ITS | Clinical Summary ---
Author Organization [facility] [employer] Address [address] [facility] [address] Care Team Providers Care Brood Hatchery Manager Name Role Phone Ermias Neff MD Primary Care Provider [phone] Source Comments [facility],non-owned Affiliates and Associated Physician Practices is amultiple site organization consisting of ambulatory clinics and hospital sitesin [place], [place], [place] and [place]. This disclosure is being madepursuant to the Care Everywhere program and may not contain all information available regarding this patient. 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 Gender Identity Not on file Sexual Orientation Not on file Last Filed Vital Signs Vital Sign Reading Time Taken Comments Blood Pressure 140/85 11/14/2017 4:15 PM DERRICK BOAT RUNNER Pulse - - Temperature - - Respiratory Rate - - Oxygen Saturation - - Inhaled Oxygen Concentration - - Weight 100.2 kg (221 lb) 11/14/2017 4:15 PM DERRICK BOAT RUNNER Height 152.4 cm (5') 11/14/2017 4:15 PM DERRICK BOAT RUNNER Body Mass Index 43.16 11/14/2017 4:15 PM DERRICK BOAT RUNNER Plan of Treatment Health Maintenance Due Date [...] age to complete this topic Insurance MEDICARE [facility] [place] [address] [facility] MANAGED MEDICARE ADV [facility] MANAGED MEDICARE ADV Care Teams Brood Hatchery Manager Relationship Specialty Start Date End Date Ermias Neff MD PCP - General Internal Medicine 11/14/17
--- OUTSIDE RECORDS SUMMARY | 2025-04-29 16:22 | XMS_ITS | Referral Summary ---
Author Organization [place] [id number] [facility] Address [address] [place] [address] Care Team Providers Care Wait Staff Name Role Phone Ermias Neff MD Primary Care Provider [phone] Doug Be MD Unavailable Encounters Date Type Department Care Team Description 04/13/2025 Telephone [facility] [address] [place] [address] [address] [address] Ermias Paige MD 03/29/2025 Telephone [facility] [address] [place] [address] Lyudmila Villanueva RN 03/05/2025 4:29 PM CDT - 03/05/2025 11:59 PM CDT Hospital Encounter [facility] [address] [place] [address] Ermias Paige MD Memory impairment Discharge Disposition: Discharge to home or self care 02/24/2025 Results Follow-Up [facility] [address] [place] [address] [address] [address] Ermias Paige MD Vitamin B12, Vitamin B6, Folate, Additional followed-up results: 2 02/15/2025 2:00 PM CDT Lab [address] Memory impairment 02/15/2025 1:00 PM CDT Office Visit [facility] [address] [place] [address] [address] [address] Ermias Paige MD Memory impairment (Primary Dx); [...] cT1, cN0, cM0, G1, ER: Not assessed, OK: Not assessed, HER2: Not assessed - Signed by Love Aguilera, PhD on 10/06/2018 Pathologic stage from 11/02/2005: pT1b, pN0(sn), cM0, G1, ER: Positive, OK: Positive, HER2: Not assessed - Signed by [...] on file 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 Results were compared to 10th and 90th percentiles of healthy age-/gender-matched population. Graphs were sent to [employer] and [employer] PACS. The protocol specifically includes FLAIR to [...] hydrocephalus. Normal flow voids seen within the [place]. Deep venous sinuses are patent. The paranasal sinuses are normal. The visualized portions of the mastoids are unremarkable. Bilateral cataract surgery. Normal flow voids are demonstrated in the carotid arteries and basilar artery. QUANTITATIVE ASSESSMENT: Assessment of hippocampal volumes: Quantitative assessment was performed using For[employer] and is reported. Hippocampal volume: Left side: [...] images of the brain were postprocessed on [employer] to generate segmented brain volumes using commercial software. Results were compared to 10th and 90th percentiles of healthy age-/gender-matched population. Graphs were sent to [employer] and [employer] PACS. The protocol specifically includes FLAIR to [...] hydrocephalus. Normal flow voids seen within the [place]. Deep venous sinuses are patent. The paranasal sinuses are normal. The visualized portions of the mastoids are unremarkable. Bilateral cataract surgery. Normal flow voids are demonstrated in the carotid arteries and basilar artery. QUANTITATIVE ASSESSMENT: Assessment of hippocampal volumes: Quantitative assessment was performed using [employer] and is reported. Hippocampal volume: Left [...] by: Will Arredondo M.D. Ermias Paige MD [facility] [place]ED[place] Edit ed Result - Final * (ABNORMAL) Vitamin B6 (02/15/2025 2:06 PM CDT) Pyridoxal phosphate (Vit B6) 2(L) 5 - 50 mcg/L [place] ref Lab Comment: ADDITIONAL INFORMATION This test was developed and its performance characteristics determined by [facility] in a manner consistent with CLIA requirements. This test has not been cleared or approved by the U.S. Food and Drug Administration. Test Performed by: [facility] [address] [place] [address] [employer] Department Manager: Elise Acevedo Ph.D.; CLIA# [id number] Blood 02/15/2025 2:06 PM CDT 02/15/2025 3:32 PM CDT Ermias Paige MD LAB BLOOD ORDERABLES Fi nal Result ANUPAM ALVES ([place]) 1 [place] [address] [place] ref Lab * (ABNORMAL) Thyroid Function [place] (02/15/2025 2:03 PM CDT) TSH 5.35(H) 0.30 - 4.20 mcIUnit/mL Blood 02/15/2025 2:03 PM CDT 02/15/2025 3:36 PM CDT us Ermias Paige MD LAB BLOOD ORDERABLES Fi nal Result Performing Organization Address [facility] Co de Phone Number ANUPAM ALVES ([place]) 1 [facility] [place] [place] [address] * T4, free (02/15/2025 2:03 PM CDT) Free T4 1.37 0.90 - 1.70 ng/dL Blood 02/15/2025 2:03 PM CDT 02/15/2025 3:36 PM CDT Narrative YVONNESERA ALVES ([place]) - 02/15/2025 6:31 PM CDT This test was reflexed from a TSH result. Ermias Paige MD LAB BLOOD ORDERABLES Fi nal Result Performing Organization Address City/[facility]/ZIP Co de Phone Number ANUPAM ALVES ([place]) 1 [facility] [place] [address] * Folate (02/15/2025 2:03 PM CDT) Folic acid 8.3 >=5.0 ng/mL Comment:Slightly Hemolyzed S pecimen. Results may be affected. Blood 02/15/2025 2:03 PM CDT 02/15/2025 3:36 PM CDT Ermias Paige MD LAB BLOOD ORDERABLES Fi nal Result [facility] ([place]) 1 [facility] [place] [address] * Vitamin B12 (02/15/2025 2:03 PM CDT) Pathologist [facility] Vitamin B12 449 230 - 1,250 pg/mL Blood 02/15/2025 2:03 PM CDT 02/15/2025 3:36 PM CDT Ermias Paige MD LAB BLOOD ORDERABLES Fi nal Result [facility] ([place]) 1 [facility] [place] [address] from Last 3 Months Insurance [facility] MEDICARE ADVANTAGE MEDICARE [facility] MEDICARE [facility] MEDICARE ADVANTAGE [facility] MEDICARE ADVANTAGE Advance Directives For more information, please contact: [phone] * Full Code (Latest Code Status on File) Date Activated Date Inactivated Comments 08/02/2021 9:42 AM 08/02/2021 5:28 PM Care Teams Wait Staff Relationship Specialty Start Date End Date Ermias Neff MD PCP - General 09/29/17 Doug Be MD [address] [facility] [address] [place] [address] Radiation Oncologist Radiation Oncology 10/06/18
--- OUTSIDE RECORDS SUMMARY | 2025-04-29 16:22 | XMS_ITS | Continuity of Care Document ---
Author Organization [facility] Address [address] [place] [address] [place] [address] Phone Care Team Providers Care Telephone Maintainer Name Role Phone Willie Boyer Unavailable Unavailable [...] Copied on Encounter Office/outpati ent Visit, Est [facility], [address], [place], [place], [id number], [place] tel:[phone] [facility] No Information 8-200 9 Merlin Tapia. [address] , [address], [place], [address], [place]. tel:[phone] Referring Provider: Morgan Tse, [address] [place], [address]. tel:[phone] [facility], [address], [place], [id number], [place] tel:[phone] SEC [facility] No Information Jun-1 5-200 9 Patricia Mora. [address] [place], [address], [place]. tel:[phone] Referring Provider: Morgan Tse, [address] [place], [address]. tel:[phone] [facility], [address], [place], [place], [address], [place] tel:[phone] [facility] No Information Apr-1 3-200 9 Patricia Mora. [address] [place], [address], [place]. tel:[phone] [facility], [address], [place], [place], [address], [place] tel:[phone] [facility] No Information 1 6-200 9 Patricia Mora. [address] [place], [address], [place]. tel:[phone] Referring Provider: Morgan Tse, [address] [place], [address]. tel:[phone] [facility], [address], [place], [place], [address], [place] tel:[phone] [facility] No Information Mar-0 2-200 9 Patricia Mora. [address] [place], [address], [place]. tel:[phone] [facility], [address], [place], [place], [address], [place] tel:[phone] [facility] No Information Alfredo-2 5-200 9 Patricia Mora. [address] [place], [address], [place]. tel:[phone] Referring Provider: Morgan Tse, [address] [place], [address]. tel:[phone] [facility], [address] [facility] [address], [place], [place], [address], [place] tel:[phone] [facility] [place] No Information 9 Patricia Mora. [address] [place], [address], [place]. tel:[phone] Referring Provider: Vadim Rogers OD Bhupendra, [address] [place] [address] [address], [place], [place], [facility]. tel:[phone] [facility], [address] [place] [address] [address], [place], [place], [address], [place] tel:[phone] [facility] No Information 0 8-200 9 Rogers OD Vadim. [facility] , [address], [place], [address], [place]. tel:[phone] [facility], [address], [place], [place], [address], [place] tel:[phone] [facility] [place] No Information 9-200 8 Randykum Stuart. [address] [facility], [place], [place], [address], [place]. tel:[phone] [facility], [address], [place], [place], [address], [place] tel:[phone] [facility] No Information 3-200 7 Shannan Davidson. [address], [address], [place], [place], [address], [place]. tel:[phone] Family History Family Member Type Diagnosis Age At Onset No Information Payers Payer name Insurance type Covered democrat ID Authoriza tion(s) Medicare [facility] [id number] [facility] Custom Care [id number] Social History Type Description Quantity Date Captured [...]
--- OUTSIDE RECORDS SUMMARY | 2025-04-29 16:22 | XMS_ITS | Encounter Summary ---
Author Organization [facility] Address [address] [facility] [place] [address] Care Team Providers Care Trade Recruiter Name Role Phone Ermias Neff MD Primary Care Provider [phone] Encounter Details Date Type Department Care Team (Late st Contact Info) Description 06/10/2024 Lab Requisition [facility] - DermPath Lab [address] [facility], [place] [address] Shadia Davis MD [address] [place] [address] [place] [address] Basal cell carcinoma of skin of right upper limb, including shoulder Social History Tobacco Use Types Packs/Day Years Used Date Smoking Tobacco: Never Smokeless Tobacco: Never Comments Unknown Sex and Gender Information Value Date Recorded Sex Assigned at Not on file 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 The epidermal surface is unremarkable. The [...] characteristic determined by the Dermatopathology Laboratory at [facility], directed by Dr. Shavonne Keane. These tests need not be, and therefore are not, approved by the [place] Food and Drug Administration. The tests are used for clinical purposes. Billing Codes Specimen Charges Stain Charges 55850 1 3:24 PM CDT DERMATOPATHOLOGY LABORATORY Embedded Images 3:24 PM CDT DERMATOPATHOLOGY LABORATORY Pathology/Cytolog y TISSUE SPECIMEN FROM SKIN / Unknown 06/10/2024 06/11/2024 1:11 PM CDT us Shadia Davis MD LAB - PATHOLOGY/CYTOLOGY ORDERAB LES Final Result DERMATOPATHOLOGY LABORATORY [facility] - Department of Dermatology [address], [address] [phone] documented in this encounter Visit Diagnoses Diagnosis Basal cell carcinoma of skin of right upper limb, including shoulder Basal cell carcinoma of skin of upper limb, including shoulder documented in this encounter Care Teams Trade Recruiter Relationship Specialty Start Date End Date Ermias Neff MD PCP - General Internal Medicine 11/14/17 documented as of this encounter
--- OUTSIDE RECORDS SUMMARY | 2025-04-29 16:22 | XMS_ITS | Clinical Summary ---
Author Organization [address] Address [address] [place] [address] Care Team Providers Care Casino Floor Runner Name Role Phone Ermias Neff MD Primary Care Provider [phone] Doug Be MD Unavailable Allergies Active Allergy [...] cT1, cN0, cM0, G1, ER: Not assessed, ND: Not assessed, HER2: Not assessed - Signed by Love Aguilera, PhD on 10/06/2018 Pathologic stage from 11/02/2005: pT1b, pN0(sn), cM0, G1, ER: Positive, ND: Positive, HER2: Not assessed - Signed by Love Aguilera, PhD on 10/06/2018 Encounters Date Type Department Care Team Description 04/13/2025 Telephone [facility] [address] [place] [address] [address] [address] Ermias Paige MD 03/29/2025 Telephone [facility] 1 [place] [address] Lyudmila Villanueva RN 03/05/2025 4:29 PM CDT - 03/05/2025 11:59 PM CDT Hospital Encounter [facility] [address] [place] [address] Ermias Paige MD Memory impairment Discharge Disposition: Discharge to home or self care 02/24/2025 Results Follow-Up [facility] [address] [place] [address] [address], [place] [address] Ermias Paige MD Vitamin B12, Vitamin B6, Folate, Additional followed-up results: 2 02/15/2025 2:00 PM CDT Lab [address] Memory impairment 02/15/2025 1:00 PM CDT Office Visit [facility] [address] [place] [address] [address] Ermias Paige MD Memory impairment (Primary Dx); [...] on file 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 Results were compared to 10th and 90th percentiles of healthy age-/gender-matched population. Graphs were sent to [employer] PACS. The protocol specifically includes FLAIR to [...] hippocampal volumes: Quantitative assessment was performed using [employer] and is reported. Hippocampal volume: Left side: [...] images of the brain were postprocessed on [employer] to generate segmented brain volumes using commercial software. Results were compared to 10th and 90th percentiles of healthy age-/gender-matched population. Graphs were sent to [employer] and [employer] PACS. The protocol specifically includes FLAIR to [...] hippocampal volumes: Quantitative assessment was performed using [employer] and is reported. Hippocampal volume: Left side: [...] Vitamin B6 (02/15/2025 2:06 PM CDT) Pathologist [facility] Pyridoxal phosphate (Vit B6) 2(L) 5 - 50 mcg/L [place] ref Lab Comment: ADDITIONAL INFORMATION This test was developed and its performance characteristics determined by [facility] in a manner consistent with CLIA requirements. This test has not been cleared or approved by the U.S. Food and Drug Administration. Test Performed by: [facility] [place] [address] Pole Inspector: Elise Acevedo Ph.D.; CLIA# [id number] Blood 02/15/2025 2:06 PM CDT 02/15/2025 3:32 PM CDT Ermias Paige MD LAB BLOOD ORDERABLES Fi nal Result ANUPAM ALVES ([place]) 1 [facility] Department [place] [address] [place] ref Lab * (ABNORMAL) Thyroid Function [place] (02/15/2025 2:03 PM CDT) Pathologist [facility] TSH 5.35(H) 0.30 - 4.20 mcIUnit/mL Blood 02/15/2025 2:03 PM CDT 02/15/2025 3:36 PM CDT Ermias Paige MD LAB BLOOD ORDERABLES Fi nal Result ANUPAM ALVSE ([place]) 1 [facility] [employer] [place] [address] * T4, free (02/15/2025 2:03 PM CDT) Free T4 1.37 0.90 - 1.70 ng/dL Blood 02/15/2025 2:03 PM CDT 02/15/2025 3:36 PM CDT Narrative YVONNESERA ALVES ([place]) - 02/15/2025 6:31 PM CDT This test was reflexed from a TSH result. Ermias Paige MD LAB BLOOD ORDERABLES Fi nal Result Performing Organization Address [facility] Co de Phone Number ANUPAM ALVES ([place]) 1 [facility] [employer] [place] [address] * Folate (02/15/2025 2:03 PM CDT) Pathologist [facility] Folic acid 8.3 >=5.0 ng/mL Comment:Slightly Hemolyzed S pecimen. Results may be affected. Blood 02/15/2025 2:03 PM CDT 02/15/2025 3:36 PM CDT Ermias Paige MD LAB BLOOD ORDERABLES Fi nal Result Performing Organization Address City/[facility]/ZIP Co de Phone Number ANUPAM ALVES ([place]) 1 [facility] [employer] [place] [address] * Vitamin B12 (02/15/2025 2:03 PM CDT) Vitamin B12 449 230 - 1,250 pg/mL Blood 02/15/2025 2:03 PM CDT 02/15/2025 3:36 PM CDT Ermias Paige MD LAB BLOOD ORDERABLES Fi nal Result [facility] ([place]) 1 [facility] [place] [address] from Last 3 Months Insurance [facility] MEDICARE ADVANTAGE MEDICARE [facility] [place] [address] MEDICARE [facility] MEDICARE ADVANTAGE [facility] MEDICARE ADVANTAGE Advance Directives For more information, please contact: [phone] * Full Code (Latest Code Status on File) Date Activated Date Inactivated Comments 08/02/2021 9:42 AM 08/02/2021 5:28 PM Care Teams Casino Floor Runner Relationship Specialty Start Date End Date Ermias Neff MD PCP - General 09/29/17 Doug Be MD [address] [facility] [address] [place] [address] Radiation Oncologist Radiation Oncology 10/06/18
--- NOTE | 2025-04-29 16:37 | ED.FALL ---
HPI - Fall General Chief Complaint: Fall Stated Complaint: FALL, RIGHT KNEE PAIN Time Seen by Provider: 04/29/25 15:44 History of Present Illness HPI Narrative: Patient is an 79-year-old female who presents ER after fall. She fell on 04/25 after stepping down into living room and driving her knee into the ground. She is able walk afterwards. Over last few days she has had increased pain and discomfort with walking and bearing weight. She has some pain in her bottom when she sits on the toilet. No numbness or tingling to the leg. No fevers chills or sweats. She did strike her head but did not lose consciousness when she fell. She is not on blood thinners. Related Data Home Medications ?Medication ?Instructions ?Recorded ?Confirmed ?Last Taken ?Type alprazolam 0.25 mg tablet (Xanax) 0.25 mg PO BID PRN Anxiety 05/03/20 03/08/22 Unknown History atorvastatin 20 mg tablet 30 mg PO HS 05/03/20 03/08/22 Unknown History clopidogrel 75 mg tablet (Plavix) 75 mg PO DAILY 05/03/20 03/08/22 06/17/20 History furosemide 20 mg tablet (Lasix) 20 mg PO DAILY 05/03/20 03/08/22 Unknown History pantoprazole 40 mg tablet,delayed 40 mg PO HS 05/03/20 03/08/22 Unknown History release Al hyd-Mg tr-alg ac-sod bicarb 80 tablet PO 03/07/22 03/08/22 Unknown History mg-14.2 mg chewable tablet (Gaviscon) famotidine 20 mg tablet (Pepcid) 20 mg PO DAILY 03/07/22 03/08/22 Unknown History ibuprofen 200 mg tablet 200 mg PO Q6H PRN 03/07/22 03/08/22 Unknown History Allergies Allergy/AdvReac Type Severity Reaction Status Date / Time naproxen Allergy Severe HIVES AND Verified 02/07/24 18:19 LIP SWELLING diclofenac Allergy Mild unknown Verified 02/07/24 18:19 erythromycin base Allergy Unknown Nausea and Verified 02/07/24 18:19 Vomiting Sulfa (Sulfonamide Allergy Unknown Diarrhea Verified 02/07/24 18:19 Antibiotics) Contrast Media Allergy Severe HIVES Uncoded 03/07/22 15:11 Review of Systems Review of Systems: All systems reviewed & are unremarkable except as noted in HPI and below Constitutional: Constitutional: Reports no additional constitutional complaints Cardiovascular: Cardiovascular: Reports no additional cardiovascular complaints Respiratory: Respiratory: Reports no additional respiratory complaints Gastrointestinal: Gastrointestinal: Reports no additional gastrointestinal complaints Musculoskeletal: Musculoskeletal: Reports no additional musculoskeletal complaints [facility] Past Medical History Medical History (Updated 04/29/25 @ 17:26 by Luis Suazo MD) Depression Cataract Palpitations History of breast cancer History of painful gingiva History of stress test Hiatal hernia with GERD Bryan's thyroiditis Diabetes Hyperlipidemia Polymyalgia rheumatica CAD (coronary artery disease) Obesity Surgical History Surgical History (Updated 02/20/22 @ 15:30 [address] Natacha Gorman [facility]) History of heart bypass surgery (~2005) History of heart artery stent X 5 History of breast biopsy History of cataract surgery H/O mastectomy (~1988) H/O tubal ligation H/O lumpectomy (~11/02/05) H/O parathyroidectomy (~01/28/19) H/O basal cell carcinoma excision (~11/10/19) Hx of CABG Family History Family History (Updated 01/25/22 @ 11:46 by Izzy Romero MA) Mother Hypertension Sibling Heart disease Sibling Parkinson disease Sibling , brother Malignant tumor of tonsil Father Emphysema lung Social History Social History Smoking status: Never smoker Alcohol intake: never Substance use: never Living arrangements: with family Spiritual care concerns: No Exam Narrative: GENERAL: Well-appearing, well-nourished, and in no acute distress. HEAD: Normocephalic, atraumatic. ENT: Mucous membranes moist. CHEST: Clear to auscultation. No respiratory distress. HEART: Regular rate and rhythm. Normal peripheral pulses. EXTREMITIES: Normal range of motion. No edema. Contusion and tenderness to the knee cap on the right side. SKIN: Warm, dry, no rash. NEURO: Alert and oriented x3. PSYCH: Normal mood and affect. Course Course Emergency Course: Patient resting comfortably. Informed of results. Discussed treatment plan. She is using a walker out of caution. Vital Signs Vital signs: Vital Signs Temperature 98.2 F 04/29/25 14:09 Pulse Rate 78 04/29/25 14:09 Respiratory Rate 16 04/29/25 14:09 Blood Pressure 179/61 H 04/29/25 14:09 Pulse Oximetry 99 04/29/25 14:09 Temperature 98.2 F 04/29/25 14:09 Pulse Rate 78 04/29/25 14:09 Respiratory Rate 16 04/29/25 14:09 Blood Pressure 179/61 H 04/29/25 14:09 Pulse Oximetry 99 04/29/25 14:09 MDM - Fall Imaging Data Radiologist's impression: ITS Impressions Head CT 04/29/25 16:10 Impression: No acute intracranial hemorrhage or suspicious mass effect. Knee X-Ray 04/29/25 16:11 IMPRESSION: Degenerative disease, without acute fracture or dislocation. Pelvis X-Ray 04/29/25 16:13 IMPRESSION: Degenerative disease, without acute fracture or dislocation, as detailed above. Cervical Spine CT 04/29/25 16:40 IMPRESSION: 1. Mild to moderate cervical spondylosis. No acute osseous abnormality. Discharge Plan Discharge Clinical Impression: Contusion of knee, Suprapatellar bursitis Patient Disposition: Home Condition: Stable Instructions: Knee Bursitis (ED), Contusion in Adults (ED) Additional Instructions: Return the ER if you have new injury, have chest pain with shortness of breath, you cannot keep down food/water, or you have additional concerns. Patient Language: French Prescriptions: New hydrocodone-acetaminophen 5-325 mg tablet 1 tablet PO Q6H PRN (Reason: pain) Qty: 10 0RF No Action famotidine [Pepcid] 20 mg tablet 20 mg PO DAILY ibuprofen 200 mg tablet 200 mg PO Q6H PRN Gaviscon 80-14.2 mg tablet,chewable PO ondansetron 4 mg tablet,disintegrating 4 mg PO Q8H PRN (Reason: nausea and vomiting) Qty: 10 0RF atorvastatin 20 mg Tablet 30 mg PO HS clopidogrel [Plavix] 75 mg Tablet 75 mg PO DAILY alprazolam [Xanax] 0.25 mg Tablet 0.25 mg PO BID PRN (Reason: Anxiety) pantoprazole 40 mg Tablet,Delayed Release (Dr/Ec) 40 mg PO HS furosemide [Lasix] 20 mg Tablet 20 mg PO DAILY Follow-up/Referrals: Tawanda,MD Ermias [Primary Care Provider] - 1 Week
[2025-04-29] MEDS: HYDROcodone/acetaminophen (*CRX) 5-325 MG TABLET 1 TAB PO (16:52)
== END 2025-04-29 17:42 | disposition home or self-care (01) ==
PROVIDERS: Emergency Provider Emergency Medicine; PCP Internal Medicine
DX: S80.01XA Contusion of right knee, initial encounter (principal); M70.51 Other bursitis of knee, right knee; I25.10 Atherosclerotic heart disease of native coronary artery without angina pectoris; E06.3 Autoimmune thyroiditis; E78.5 Hyperlipidemia, unspecified; E11.9 Type 2 diabetes mellitus without complications; M35.3 Polymyalgia rheumatica; K21.9 Gastro-esophageal reflux disease without esophagitis; K44.9 Diaphragmatic hernia without obstruction or gangrene; F32.A Depression, unspecified; Z85.3 Personal history of malignant neoplasm of breast; Z95.5 Presence of coronary angioplasty implant and graft; Z95.1 Presence of aortocoronary bypass graft; Z98.49 Cataract extraction status, unspecified eye; Z90.10 Acquired absence of unspecified breast and nipple; Z90.89 Acquired absence of other organs; Z85.828 Personal history of other malignant neoplasm of skin; Z79.02 Long term (current) use of antithrombotics/antiplatelets; Z79.899 Other long term (current) drug therapy; M47.812 Spondylosis without myelopathy or radiculopathy, cervical region; W18.39XA Other fall on same level, initial encounter
CPT/HCPCS: 70450; 72125; 72170; 73562; 99284; A9270

== ENCOUNTER 2025-08-04 15:55 | Outpatient (CLI) | payer MEDICARE, SELFPAY ==
--- OUTSIDE RECORDS SUMMARY | 2009-07-27 07:00 | XMS_ITS | Continuity of Care Document ---
Author Organization [facility] Address [address] [place] [address] [place] [address] Phone Care Team Providers Care Regulatory Affairs Director Name Role Phone Willie Boyer Unavailable Unavailable Procedures Procedure Date Office/outpatient Visit, Est No Script Eye Exam Established Pt Ophthalmoscopy, Subsequent Post-op Follow-up Visit Ophthalmoscopy, Subsequent Post-op Follow-up Visit Post-op Follow-up Visit Ophthalmoscopy, Subsequent Ophthalmoscopy, Subsequent Post-op Follow-up Visit Ophthalmoscopy, Subsequent Office Consultation Ophthalmoscopy Ophthalmoscopy Optic Nerve Topography Optic Nerve Topography Eye Exam & Treatment No Script Eye Exam & Treatment Eye Exam & Treatment Advance Directives Directive Yes / No Effective Date File Name No Information Encounters Encounter Description Practice Location Reason(s) For Visit Diagnoses Date Provider Providers Copied on Encounter Office/outpati ent Visit, Est [facility], [address], [place], [place], [id number], [place] tel:[phone] [facility] No Information 8-200 9 Merlin Tapia. [address] , [address], [place], [address], [place]. tel:[phone] Referring Provider: Morgan Tse, [address] [place], [address]. tel:[phone] [facility], [address], [place], [place], [address], [place] tel:[phone] [facility] No Information Jun-1 5-200 9 Patricia Mora. [address] [place], [address], [place]. tel:[phone] Referring Provider: Morgan Tse, [address] [place], [address]. tel:[phone] [facility], [address], [place], [place], [id number], [place] tel:[phone] [facility] No Information Apr-1 3-200 9 Patricia Mora. [address] [place], [address], [place]. tel:[phone] [facility], [address], [place], [place], [address], [place] tel:[phone] [facility] No Information 1 6-200 9 Patricia Mora. [address] [place], [address], [place]. tel:[phone] Referring Provider: Morgan Tse, [address] [place], [address]. tel:[phone] [facility], [address], [place], [place], [id number], [place] tel:[phone] [facility] No Information Mar-0 2-200 9 Patricia Mora. [address] [place], [address], [place]. tel:[phone] [facility], [address], [place], [place], [id number], [place] tel:[phone] [facility] No Information Alfredo-2 5-200 9 Patricia Mora. [address] [place], [address], [place]. tel:[phone] Referring Provider: Morgan Tse, [address] [place], [address]. tel:[phone] [facility], [address], [place], [place], [id number], [place] tel:[phone] [facility] No Information 9 Patricia Mora. [address] [place], [address], [place]. tel:[phone] Referring Provider: Vadim Rogers OD Bhupendra, [address] [place] [address] [address], [place], [place], [facility]. tel:[phone] [facility], [address] [place] [address] [address], [place], [place], [id number], [place] tel:[phone] [facility] No Information 0 8-200 9 Rogers OD Vadim. [facility] , [address], [place], [address], [place]. tel:[phone] [facility], [address], [place], [place], [id number], [place] tel:[phone] [facility] [place] No Information 9-200 8 Randykum Stuart. [address] [facility], [place], [place], [address], [place]. tel:[phone] [facility], [address], [place], [place], [address], [place] tel:[phone] [facility] No Information 3-200 7 Shannan Davidson. [address], [place], [place], [address], [place]. tel:[phone] Family History Family Member Type Diagnosis Age At Onset No Information Payers Payer name Insurance type Covered democrat ID Authoriza tion(s) Medicare [facility] [id number] [facility] Custom Care [id number] Social History Type Description Quantity Date Captured Comments Sex Female Smoking Status No Information Chief Complaint And Reason For Visit No Information Reason For Referral Reason For Referral No Information History Of Present Illness Encounter Date Complaint History Of Prese nt Illness No Information Functional Status Date Functional Assessmen t No Information Instructions Date Instruction Additional Infor mation No Information Assessments Type Assessment Date No Information Patient Care Teams Name Effective Dates (start - stop) Status Members No Information
[2025-08-04 16:46] LABS: Hematocrit 47.4 % (37.0-47.0); Hemoglobin 15.1 g/dL (12.0-15.0); Immature Granulocyte Percent A 0.5 % (0-0.5); Lymphocytes Absolute Auto 2.98 K/mm3 (0.9-3.2); Mean Corpuscular HGB Conc 31.9 g/dl (32-36); Mean Corpuscular Hemoglobin 28.6 pg (26-34); Mean Corpuscular Volume 89.8 fl (80-100); Nucleated Red Blood Cells Absolute Auto 0.000 K/mm3 (0.0-0.012); Nucleated Red Blood Cells Perc 0.0 % (0.0-0.2); Platelet Count Result 244 k/mm3 (150-375); Red Blood Count 5.28 M/mm3 (4.2-5.4); White Blood Count 7.9 K/mm3 (4.5-10.0)
[2025-08-04 17:01] LABS: Alanine Aminotransferase 43 U/L (6-35); Albumin Level 4.3 g/dL (3.5-5.1); Alkaline Phosphatase 87 U/L (38-126); Anion Gap 7 mmol/L (4-12); Aspartate Amino Transferase 46 U/L (14-36); Bilirubin,Total 0.6 mg/dL (0.2-1.3); Blood Urea Nitrogen 16 mg/dL (7-17); Calcium 9.3 mg/dL (8.4-10.2); Carbon Dioxide 27 mmol/L (22-30); Chloride 106 mmol/L (98-107); Cholesterol 181 mg/dL (0-200); Estimated Glomerular Filt Rate > 60; Glucose 94 mg/dL (65-110); HDL Direct 67 mg/dL; Potassium 4.0 mmol/L (3.4-5.0); Sodium 140 mmol/L (137-145); Total Protein 7.7 g/dL (6.3-8.2); Triglycerides 122 mg/dL (<150)
[2025-08-04 17:28] LABS: Free T3 2.92 pg/mL (2.34-5.61); Free T4 Free Thyroxine 1.28 ng/dL (0.78-2.19)
[2025-08-04 17:36] LABS: Thyroid Stimulating Hormone 10.300 uIU/mL (0.465-4.680)
--- OUTSIDE RECORDS SUMMARY | 2025-08-05 15:06 | XMS_ITS | Clinical Summary ---
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 Encounters Date Type Department Care Team Description 07/28/2025 External Device Data STL ABSTRACTION Provider, Abstract 07/27/2025 External Device Data ST[facility] ABSTRACTION Provider, Abstract 07/20/2025 External Device Data [facility] ABSTRACTION Provider, Abstract 06/01/2025 External Device Data [facility] ABSTRACTION Provider, Abstract 05/18/2025 External Device Data ST[facility] ABSTRACTION Provider, Abstract 05/05/2025 External Device Data STL ABSTRACTION Provider, Abstract [...] Description 04/18/2026 1:00 PM CDT Office Visit [facility] - [place] [place] [address] Pérez Ford MD [address] [place] [address] [place] [address] Health Maintenance Due Date Last Done Comments DTAP/TDAP/TD VACCINES (1 - Tdap) 1962 ZOSTER VACCINE (1 of 2) 1993 PNEUMOCOCCAL VACCINE 50+ YEA RS (2 of 2 - PPSV23, PCV20, or PCV21) 02/07/2016 12/13/2015 RSV VACCINE (60+ or ) (1 - 1-dose 75+ series) 2018 OSTEOPOROSIS SCREENING 10/12/2024 10/12/2019 INFLUENZA VACCINE (#1) 2025 1, 07/28/2020, 07/28/2020, Additional history exists Insurance Care Teams Sewer And Drain Technician Relationship Specialty Start Date End Date Ermias Neff MD [address] [place] [id number] PCP - General Internal Medicine 07/12/20
--- OUTSIDE RECORDS SUMMARY | 2025-08-05 15:06 | XMS_ITS | Clinical Summary ---
Author Organization [address] Address [address] [place] [address] Care Team Providers Care Dry Chain Puller Name Role Phone Ermias Neff MD Primary Care Provider [phone] Doug Be MD Unavailable Allergies Active Allergy Reactions Criticality Noted Date Comments Diclofenac Unknown 10/06/2019 Erythromycin Stomach upset Low 05/03/2011 Erythromycin Base Hives Medium 10/06/2019 Iodinated Contrast Media Hives Medium 10/06/2019 Iohexol Stomach upset Low 05/03/2011 Naproxen Unknown,Edema Medium 2015 Sulfa (Sulfonamide Antibiotics) Swelling,Hives Medium 01/29/2013 Hives Medications atorvastatin (LIPITOR) 10 mg tablet TAKE 1 TABLET BY MOUTH QD. TAKE WITH 20 MG FOR TOTAL OF 30 MG DAILY DOSE 10/14/2017 Active levothyroxine (SYNTHROID, LEVOTHROID) 150 mcg tablet Take 150 mcg by mouth daily. 1 09/29/2018 Active furosemide (LASIX) 20 mg tablet Take 20 mg by mouth 2 (two) times a day. Active clopidogreL (PLAVIX) 75 mg tablet Take 1 tablet (75 mg total) by mouth daily 08/03/2021 Active famotidine (PEPCID) 20 mg/2 mL injection Active rimegepant (NURTEC ODT) tablet,disintegr atingIndications :Migraine with aura and without status migrainosus, not intractable Take 1 tablet (75 mg total) by mouth daily as needed (for migraine) 8 tablet 5 2025 Active Active Problems Problem Noted Date Diagnosed Date Migraine with aura and witho ut status migrainosus, not intractable 05/19/2025 Vitamin B6 deficiency 05/19/2025 Memory impairment 02/15/2025 Encounter for follow-up surveillance of breast c ancer 10/06/2018 Carcinoma of lower-outer tres drant of right breast in female, estrogen receptor positive 10/06/2018 Cancer Staging:Clinical stage from 10/18/2005: cT1, cN0, cM0, G1, ER: Not assessed, NC: Not assessed, HER2: Not assessed - Signed by Love Aguilera, PhD on 10/06/2018 Pathologic stage from 11/02/2005: pT1b, pN0(sn), cM0, G1, ER: Positive, NC: Positive, HER2: Not assessed - Signed by Love Aguilera, PhD on 10/06/2018 Resolved Problems Problem Noted Date Diagnosed Date Resolved Date Parkinson's disease without dyskinesia or fluctuating manifestations 02/15/2025 05/19/2025 Encounters Date Type Department Care Team Description 2025 1:45 PM CDT Office Visit [facility] [address] [place] [address] [address], [place] [address] Ermias Paige MD Memory impairment (Primary Dx); Migraine with aura and without status migrainosus, not intractable; Vitamin B6 deficiency from Last 3 Months Surgical History Surgery Date Site/Laterality Comments CORONARY ARTERY BYPASS GRAFT X 5 MASTECTOMY 09/30/1990 - 09/29/1991 Left BREAST LUMPECTOMY 09/30/2005 - 09/29/2006 Right PARATHYROIDECTOMY UPPER GASTROINTESTINAL ENDOSCOPY Medical History Medical History Date Comments GERD (gastroesophageal reflux disease) Hyperlipidemia Asthma Hypothyroidism H/O Bryan thyroiditis Depression Anxiety Urinary incontinence History of transfusion PMR (polymyalgia rheumatica) History of coronary artery stent placement 2005 x 5 Cancer (HCC) Breast cancer (HCC) [...] on file 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 Gender Identity Not on file Sexual Orientation Not on file Last Filed Vital Signs Vital Sign Reading Time Taken Comments Blood Pressure 154/74 2025 1:52 PM CDT Pulse 86 2025 1:52 PM CDT Temperature 36.6 C (97.8 F) 08/02/2021 9:50 AM CDT Respiratory Rate 14 08/02/2021 11:42 AM CDT Oxygen Saturation 97% 2025 1:52 PM CDT Inhaled Oxygen Concentration - - Weight 98.2 kg (216 lb 9.6 oz) 2025 1:52 P M CDT Height 152.4 cm (5') 2025 1:52 PM CDT Body Mass Index 42.3 2025 1:52 PM CDT Plan of Treatment Health Maintenance Due Date Last Done Comments Depression Screening 1943 Fall Risk Assessment 1945 DTaP/Tdap/Td Vaccine (1 - Tdap) 1954 Hepatitis B Screening 1961 Zoster Vaccine (1 of 2) 1993 Well Visit 65+ 2008 Pneumococcal vaccine 65+ (2 of 2 - PPSV23, PCV20, or PCV21) 02/07/2016 12/13/2015 Osteoporosis Screening-Bone Density Scan 07/08/2024 07/08/2022 Covid-19 Vaccine (2024-2 6 season) 2025 05/04/2022, 07/13/2021, 01/03/2021, Additional history exists Influenza Vaccine (#1) 2025 , 08/08/2022, 07/28/2020, Additional history exists Insurance [facility] MEDICARE [facility] Address: [address] [address] [place] [address] MEDICARE [facility] MEDICARE [facility] MEDICARE ADVANTAGE [facility] MEDICARE ADVANTAGE Advance Directives For more information, please contact: [phone] * Full Code (Latest Code Status on File) Date Activated Date Inactivated Comments 08/02/2021 9:42 AM 08/02/2021 5:28 PM Care Teams Dry Chain Puller Relationship Specialty Start Date End Date Ermias Neff MD PCP - General 09/29/17 Doug Be MD [address] [facility] [address] [place] [address] Radiation Oncologist Radiation Oncology 10/06/18
--- OUTSIDE RECORDS SUMMARY | 2025-08-05 15:06 | XMS_ITS | Clinical Summary ---
Author Organization [facility] Address [address] [place] [address] Care Team Providers Care Chain Hoist Operator Name Role Phone Ermias Neff MD Primary Care Provider [phone] Source Comments [facility],non-owned Affiliates and Associated Physician Practices is amultiple site organization consisting of ambulatory clinics and hospital sitesin [place], [place], [place] and [place]. This disclosure is being madepursuant to the Care Everywhere program and may not contain all information available regarding this patient. 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 Gender Identity Not on file Sexual Orientation Not on file Last Filed Vital Signs Vital Sign Reading Time Taken Comments Blood Pressure 140/85 11/14/2017 4:15 PM SPEECH CLINICIAN Pulse - - Temperature - - Respiratory Rate - - Oxygen Saturation - - Inhaled Oxygen Concentration - - Weight 100.2 kg (221 lb) 11/14/2017 4:15 PM SPEECH CLINICIAN Height 152.4 cm (5') 11/14/2017 4:15 PM SPEECH CLINICIAN Body Mass Index 43.16 11/14/2017 4:15 PM SPEECH CLINICIAN Plan of Treatment Health Maintenance Due Date Last Done Comments BONE DENSITY TESTING 1945 DTAP/TDAP/TD VACCINES (1 - Tdap) 1962 ZOSTER VACCINE (1 of 2) 1993 PNEUMOCOCCAL VACCINE 50+ (2 of 2 - PCV20 or PCV21) 12/12/2016 12/13/2015 Respiratory Syncytial Virus (RSV) Vaccine Pt: or over 60 yrs (1 - 1-dose 75+ series) 2018 DEPRESSION SCREENING 09/30/2024 MEDICARE AWV CALENDAR YEAR 2024 COVID-19 VACCINE ( season) 2025 07/13/2021, 01/03/2021, 12/13/2020, Additional history exists INFLUENZA VACCINE (#1) 2025 , 07/28/2020, 07/31/2019, [...] age to complete this topic Insurance MEDICARE [facility] [place] [address] [facility] MEDICARE ADV [facility] MEDICARE ADV Care Teams Chain Hoist Operator Relationship Specialty Start Date End Date Ermias Neff MD PCP - General Internal Medicine 11/14/17
--- OUTSIDE RECORDS SUMMARY | 2025-08-05 15:06 | XMS_ITS | Encounter Summary ---
Author Organization [facility] Address [address] [address] [place] [address] Care Team Providers Care Aws Architect Name Role Phone Ermias Neff MD Primary Care Provider Encounter Details Date Type Department Care Team (Late st Contact Info) Description 06/10/2024 Lab Requisition [facility] - DermPath Lab [address] [place] [id number] Shadia Davis MD [address] [place] [address] [place] [address] Basal cell carcinoma of skin of right upper limb, including shoulder Social History Tobacco Use Types Packs/Day Years Used Date Smoking Tobacco: Never Smokeless Tobacco: Never Comments Unknown Sex and Gender Information Value Date Recorded Sex Assigned at Not on file 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 The epidermal surface is unremarkable. The [...] characteristic determined by the Dermatopathology Laboratory at [facility], directed by Dr. Shavonne Keane. These tests need not be, and therefore are not, approved by the [place] Food and Drug Administration. The tests are used for clinical purposes. Billing Codes Specimen Charges Stain Charges 85042 1 3:24 PM CDT DERMATOPATHOLOGY LABORATORY Embedded Images 3:24 PM CDT DERMATOPATHOLOGY LABORATORY Pathology/Cytolog y TISSUE SPECIMEN FROM SKIN / Unknown 06/10/2024 06/11/2024 1:11 PM CDT us Shadia Davis MD LAB - PATHOLOGY/CYTOLOGY ORDERAB LES Final Result DERMATOPATHOLOGY LABORATORY [facility] - Department of Dermatology [address] [phone] documented in this encounter Visit Diagnoses Diagnosis Basal cell carcinoma of skin of right upper limb, including shoulder Basal cell carcinoma of skin of upper limb, including shoulder documented in this encounter Care Teams Aws Architect Relationship Specialty Start Date End Date Ermias Neff MD PCP - General Internal Medicine 11/14/17 documented as of this encounter
== END 2025-08-04 15:56 | disposition home or self-care (01) ==
PROVIDERS: PCP Internal Medicine; Visit Provider Internal Medicine
DX: I10 Essential (primary) hypertension (principal)
CPT/HCPCS: 36415; 80053; 80061; 84439; 84443; 84481; 85025